=== PATIENT | female | born 1955 | race Caucasian/White ===

== ENCOUNTER 2016-07-27 10:37 | Emergency (ER) | payer BC ==
[2016-07-27] MEDS ORDERED: SODIUM CHLORIDE 0.9% 1,000 ML IV STA (10:45)
[2016-07-27] MEDS ORDERED: diphenhydrAMINE 50 MG/ML 1 ML VIAL IVP STA (10:45)
[2016-07-27] MEDS ORDERED: FAMOTIDINE 20 MG/2 ML VIAL IV STA (10:45)
[2016-07-27] MEDS ORDERED: EPINEPHrine 1 MG/ML 1 ML AMP SQ ONE (10:46)
--- NOTE | 2016-07-27 11:22 | ED ---
General Adult HPI - General Chief complaint: Allergic Reaction Stated complaint: allergic reaction Time Seen by Provider: 07/27/16 10:45 Source: patient, family, RN notes reviewed, old records reviewed Mode of arrival: ambulatory Limitations: no limitations - History of Present Illness Initial comments: Chief complaint and history of present illness a 61-year-old female presented since to the emergency room with significant swelling to her lips and both cheeks. Patient was given a shot of steroid in the office. On around emergency room she was given IV Pepcid and Benadryl. As well as 0.2 epinephrine. - Related Data Previous Rx's Medication Instructions Recorded EPINEPHrine (Auto Inject) [Epipen] 0.3 mg IM ONCE PRN #2 syringe 07/27/16 predniSONE 20 mg PO DAILY #3 tab 07/27/16 Allergies Allergy/AdvReac Type Severity Reaction Status Date / Time ibuprofen [From Advil] Allergy Rash/Hives Verified 07/27/16 11:14 naproxen sodium [From Aleve] Allergy Rash/Hives Verified 07/27/16 11:14 sulfamethoxazole Allergy Rash/Hives Verified 07/27/16 11:14 [From Bactrim] trimethoprim [From Bactrim] Allergy Rash/Hives Verified 07/27/16 11:14 Review of Systems ROS Statement: Those systems with pertinent positive or pertinent negative responses have been documented in the HPI. Review of systems. The patient did receive penicillin today and appears well patient may now the penicillin as an ALLERGY. He also had hives in addition to the significant swelling to the face and lips the tongue was not swollen. She was not having difficulty breathing no wheezing. Vital signs were stable. No other complaints all systems are reviewed. Past medical problems significant for rheumatoid arthritis, heart murmur for which she is scheduled to have an echocardiogram was later on this afternoon. Patient bariatric surgery. ALLERGIES include ibuprofen naproxen sulfa and now penicillin should be on her list. Ex-smoker. Occasional alcohol use ROS Other: All systems not noted in ROS Statement are negative. Past Medical History Past Medical History: Rheumatoid Arthritis (RA), Thyroid Disorder Additional Past Medical History / Comment(s): Heart murmur-patient has been previously worked up for this., neck pain History of Any Multi-Drug Resistant Organisms: None Reported Past Surgical History: Bariatric Surgery, Hysterectomy Additional Past Surgical History / Comment(s): cervical CA Past Psychological History: No Psychological Hx Reported Smoking Status: Former smoker Past Alcohol Use History: Occasional Past Drug Use History: None Reported General Exam - General Exam Comments Initial Comments: General: The patient is awake and alert, presents with significant swelling to her left and right side of her face as well as her lips but not her tongue. No change in her ability to breathe through her nose. Eye: Pupils are equal, round and reactive to light, extra-ocular movements are intact ; there is normal conjunctiva bilaterally. No signs of icterus. Ears, nose, mouth and throat: There are moist mucous membranes and no oral lesions. Significant a swollen cheeks and lips. Starting to come down should not be receiving epinephrine sq, Pepcid and Benadryl IV. Neck: The neck is supple, there is no tenderness , no stridor appreciated. Thyroid not enlarged no anterior cervical lymphadenopathy. Cardiovascular: There is a regular rate and rhythm. Loud systolic murmur heard over both the aorta and mitral valve areas. Respiratory: Lungs are clear to auscultation, respirations are non-labored, breath sounds are equal. No wheezes, stridor, rales, or rhonchi. Gastrointestinal: Soft, non-distended, non-tender abdomen without masses or organomegaly noted. There is no rebound or guarding present. No CVA tenderness. Bowel sounds are unremarkable. Back: There is no tenderness to palpation in the midline. There is no obvious deformity. Patient had hives earlier which is subsiding. Musculoskeletal: Normal ROM, no tenderness, There is no pedal edema. There is no calf tenderness or swelling. Sensation intact. Pulses equal bilaterally 2+. Neurological: No neuro deficits are noted and oriented no focal or lateralizing findings. Skin: His are noted earlier subsiding at this time. Limitations: no limitations Course Vital Signs 07/27/16 07/27/16 10:44 11:28 Temperature 97.1 F L 98.4 F Pulse Rate 82 80 Respiratory 18 18 Rate Blood Pressure 167/97 143/72 O2 Sat by Pulse 98 98 Oximetry Medical Decision Making - Medical Decision Making was resting had to be awakened. Vital signs stable, minimal swelling at this time. No stridor no difficulty breathing. The plan the patient be discharged to the care of her . She'll be placed on prednisone 20 mg daily for the next 2 days, Benadryl 25 mg 4 times daily for the next 2 days and Pepcid 20 mg daily for the next 2 days. Advised to follow-up with the family physician - Lab Data Result diagrams: 07/27/16 11:00 07/27/16 11:33 Lab Results 07/27/16 07/27/16 Range/Units 11:00 11:33 WBC 7.9 (3.8-10.6) k/uL RBC 4.88 (3.80-5.40) m/uL Hgb 14.3 (11.4-16.0) gm/dL Hct 44.2 (34.0-46.0) % MCV 90.7 (80.0-100.0) fL MCH 29.4 (25.0-35.0) pg MCHC 32.4 (31.0-37.0) g/dL RDW 13.2 (11.5-15.5) % Plt Count 300 (150-450) k/uL Neutrophils % 84 % Lymphocytes % 12 % Monocytes % 2 % Eosinophils % 1 % Basophils % 0 % Neutrophils # 6.6 (1.3-7.7) k/uL Lymphocytes # 1.0 (1.0-4.8) k/uL Monocytes # 0.2 (0-1.0) k/uL Eosinophils # 0.1 (0-0.7) k/uL Basophils # 0.0 (0-0.2) k/uL Sodium 143 (137-145) mmol/L Potassium 3.9 (3.5-5.1) mmol/L Chloride 104 (98-107) mmol/L Carbon Dioxide 27 (22-30) mmol/L Anion Gap 12 mmol/L BUN 12 (7-17) mg/dL Creatinine 0.50 L (0.52-1.04) mg/dL Est GFR (MDRD) Af Amer >60 (>60 ml/min/1.73 sqM) Est GFR (MDRD) Non-Af >60 (>60 ml/min/1.73 sqM) Glucose 112 H (74-99) mg/dL Calcium 9.7 (8.4-10.2) mg/dL Disposition Clinical Impression: Adverse reaction to drug Disposition: HOME SELF-CARE Condition: Fair Instructions: Anaphylaxis (ED) Additional Instructions: Stop the medication that caused the problem. Increase fluid intake. Use EpiPen as directed. Take Benadryl 25 mg 4 times daily for the next 2 days, Pepcid 20 mg daily for 2 days, and prednisone 20 mg daily for the next 2 days. Follow-up with your family physician. Prescriptions: EPINEPHrine (Auto Inject) [Epipen] 0.3 mg IM ONCE PRN #2 syringe PRN Reason: Anaphylaxis predniSONE 20 mg PO DAILY #3 tab Referrals: Berna Jalloh MD [Primary Care Provider] - 1-2 days Time of Disposition: 13:28
[2016-07-27 11:42] LABS: Basophils % (A) 0 %; CH 29.6; CHCM 32.8; Eosinophils # (A) 0.1 k/uL (0-0.7); Eosinophils % (A) 1 %; HCT 44.2 % (34.0-46.0); HDW 2.24; HGB 14.3 gm/dL (11.4-16.0); Luc # (Auto) 0.05; Luc % (Auto) 1; Lymphocytes % (A) 12 %; MCH 29.4 pg (25.0-35.0); MCHC 32.4 g/dL (31.0-37.0); MCV 90.7 fL (80.0-100.0); Mean Platelet Volume 8.7; Monocytes # (A) 0.2 k/uL (0-1.0); Monocytes % (A) 2 %; Neutrophils # (A) 6.6 k/uL (1.3-7.7); Neutrophils % (A) 84 %; RBC 4.88 m/uL (3.80-5.40); RDW 13.2 % (11.5-15.5); WBC 7.9 k/uL (3.8-10.6); WBC (Perox) 7.53
[2016-07-27 12:22] LABS: Blood Urea Nitrogen 12 mg/dL (7-17); Calcium 9.7 mg/dL (8.4-10.2); Carbon Dioxide 27 mmol/L (22-30); Glucose 112 mg/dL (74-99); Non-African American GFR(MDRD) >60 (>60 ml/min/1.73 sqM); Potassium 3.9 mmol/L (3.5-5.1); Sodium 143 mmol/L (137-145)
[2016-07-27 12:34] LABS: Anion Gap 12 mmol/L; Chloride 104 mmol/L (98-107)
[2016-07-27 13:48] VITALS: BP 110/62; PULSE 91; RESP 20; TEMP 98.3
== END 2016-07-27 13:49 | disposition home or self-care (01) ==
LOC: EC 10:37
DX: R22.0 Localized swelling, mass and lump, head (principal); K13.0 Diseases of lips; T38.0X5A Adverse effect of glucocorticoids and synthetic analogues, initial encounter; Z87.891 Personal history of nicotine dependence; Z88.6 Allergy status to analgesic agent; Z88.2 Allergy status to sulfonamides; Z85.41 Personal history of malignant neoplasm of cervix uteri
CPT/HCPCS: 99284; 96374; 96375; 96372; 36415; 80048; 85025; J0171; J1200; 93306

== ENCOUNTER → 2016-07-27 | Outpatient (CLI) | payer BC ==
--- NOTE | 2016-07-28 10:20 | ECHOF ---
Referral Reason:I35.0 aortic stensois MEASUREMENTS -------- HEIGHT: 160.0 cm WEIGHT: 95.3 kg BP: 142/85 IVSd: 1.2 cm (0.6 - 1.1) LVIDd: 4.3 cm (3.9 - 5.3) LVPWd: 1.3 cm (0.6 - 1.1) IVSs: 1.8 cm LVIDs: 2.6 cm LVPWs: 2.0 cm LAESV Index (A-L): 23.24 ml/m Ao Diam: 2.9 cm (2.0 - 3.7) AV Cusp: 1.6 cm (1.5 - 2.6) LA Diam: 3.8 cm (2.7 - 3.8) MV E Aubrey: 0.79 m/s MV DecT: 265 ms MV A Aubrey: 1.02 m/s MV E/A Ratio: 0.78 AV maxP.45 mmHg AV meanP.07 mmHg RAP: 5.00 mmHg RVSP: 23.79 mmHg FINDINGS -------- Sinus rhythm. This was a technically adequate study. There is mild concentric left ventricular hypertrophy. Left ventricular systolic function is hyperdynamic with an estimated EF of >70%. The right ventricle is normal in size and function. Normal LA size by volume 22+/-6 ml/m2. The right atrium is normal in size. There is no evidence of aortic regurgitation. There is no evidence of aortic stenosis. AOV is possible Bicuspid. The mitral valve leaflets are mildly thickened. Mild mitral annular calcification present. There is trace mitral regurgitation. Trace tricuspid regurgitation present. There is no evidence of pulmonary hypertension. The right ventricular systolic pressure, as measured by Doppler, is 23.79mmHg. The pulmonic valve was not well visualized. The aortic root size is normal. Normal inferior vena cava with normal inspiratory collapse consistent with estimated right atrial pressure of 5 mmHg. The pericardium is normal. There is no pericardial effusion. CONCLUSIONS -------- 1. Sinus rhythm. 2. There is trace mitral regurgitation. 3. Trace tricuspid regurgitation present. 4. There is no evidence of pulmonary hypertension. 5. The right ventricular systolic pressure, as measured by Doppler, is 23.79mmHg. 6. The pulmonic valve was not well visualized. 7. The aortic root size is normal. 8. There is no pericardial effusion. 9. There is mild concentric left ventricular hypertrophy. 10. Left ventricular systolic function is hyperdynamic with an estimated EF of >70%. 11. Normal LA size by volume 22+/-6 ml/m2. 12. There is no evidence of aortic regurgitation. 13. There is no evidence of aortic stenosis. 14. AOV is possible Bicuspid. 15. The mitral valve leaflets are mildly thickened. 16. Mild mitral annular calcification present. [employer] DRIVER: Kwaku Marcano RDCS
== END | disposition home or self-care (01) ==
LOC: RADECHMAIN 13:52
PROVIDERS: ATTEND Family Medicine
DX: I08.1 Rheumatic disorders of both mitral and tricuspid valves (principal)
CPT/HCPCS: 93306

== ENCOUNTER 2016-08-04 05:49 | Emergency (ER) | payer BC ==
[2016-08-04 05:55] VITALS: RESP 18
[2016-08-04] MEDS ORDERED: methylPREDNISolone SOD SUCCI 125 MG/2 ML VIAL IV STA (06:28)
[2016-08-04] MEDS ORDERED: FAMOTIDINE 20 MG/2 ML VIAL IV STA (06:28)
[2016-08-04 06:45] LABS: Basophils % (A) 1 %; CH 29.4; CHCM 31.5; Eosinophils # (A) 0.4 k/uL (0-0.7); Eosinophils % (A) 6 %; HCT 38.9 % (34.0-46.0); HDW 2.15; HGB 12.5 gm/dL (11.4-16.0); Luc # (Auto) 0.09; Luc % (Auto) 2; Lymphocytes # (A) 1.6 k/uL (1.0-4.8); Lymphocytes % (A) 27 %; MCV 93.7 fL (80.0-100.0); Mean Platelet Volume 7.4; Monocytes # (A) 0.3 k/uL (0-1.0); Monocytes % (A) 5 %; Neutrophils # (A) 3.5 k/uL (1.3-7.7); Neutrophils % (A) 59 %; RBC 4.16 m/uL (3.80-5.40); RDW 13.4 % (11.5-15.5); WBC 5.8 k/uL (3.8-10.6); WBC (Perox) 5.91
[2016-08-04 06:55] LABS: Anion Gap 7 mmol/L; Blood Urea Nitrogen 19 mg/dL (7-17); Calcium 9.1 mg/dL (8.4-10.2); Carbon Dioxide 28 mmol/L (22-30); Chloride 108 mmol/L (98-107); Glucose 81 mg/dL (74-99); Non-African American GFR(MDRD) >60 (>60 ml/min/1.73 sqM); Potassium 4.1 mmol/L (3.5-5.1); Sodium 143 mmol/L (137-145)
--- NOTE | 2016-08-04 07:10 | ED ---
ENT HPI - General Chief complaint: ENT Stated complaint: Swollen tounge Time Seen by Provider: 08/04/16 05:58 Source: patient Mode of arrival: ambulatory Limitations: no limitations - History of Present Illness Initial comments: This patient is a 61-year-old woman who was sleeping this morning, when she was awakened noting that her tongue felt swollen. She states it feels more swollen on the left side than the right. She has no previous history of this. It seems to have developed around 5 AM. She states that last night before going to bed she did have some facial itching but no hives. Patient is able swallow own secretions. She is breathing with no difficulty. She does report taking Benadryl at home but states she did not want to wait and see if there was improvement or worsening, as she was concerned about not being able to breathe if it worsened. MD complaint: other (Tongue swelling) Onset/Timin -: hour(s) Location: tongue Severity: moderate Quality: dull Consistency: constant Improves with: none Worsens with: none - Related Data Previous Rx's Medication Instructions Recorded EPINEPHrine (Auto Inject) [Epipen] 0.3 mg IM ONCE PRN #2 syringe 07/27/16 Famotidine [Pepcid] 20 mg PO DAILY #14 tablet 08/04/16 predniSONE 60 mg PO DAILY #30 tab 08/04/16 Allergies Allergy/AdvReac Type Severity Reaction Status Date / Time ibuprofen [From Advil] Allergy Rash/Hives Verified 08/04/16 05:55 naproxen sodium [From Aleve] Allergy Rash/Hives Verified 08/04/16 05:55 sulfamethoxazole Allergy Rash/Hives Verified 08/04/16 05:55 [From Bactrim] trimethoprim [From Bactrim] Allergy Rash/Hives Verified 08/04/16 05:55 Review of Systems ROS Statement: Those systems with pertinent positive or pertinent negative responses have been documented in the HPI. ROS Other: All systems not noted in ROS Statement are negative. Constitutional: Denies: fever, chills Eyes: Denies: vision change ENT: Reports: as per HPI. Denies: throat pain, dental pain, congestion Respiratory: Denies: cough, dyspnea, wheezes, hemoptysis, stridor Cardiovascular: Denies: chest pain Gastrointestinal: Denies: abdominal pain, vomiting, diarrhea Musculoskeletal: Denies: back pain Skin: Denies: rash Neurological: Denies: headache, weakness, numbness Past Medical History Past Medical History: Rheumatoid Arthritis (RA), Thyroid Disorder Additional Past Medical History / Comment(s): Heart murmur-patient has been previously worked up for this., neck pain History of Any Multi-Drug Resistant Organisms: None Reported Past Surgical History: Bariatric Surgery, Hysterectomy Additional Past Surgical History / Comment(s): cervical CA Past Psychological History: No Psychological Hx Reported Smoking Status: Former smoker Past Alcohol Use History: Occasional Past Drug Use History: None Reported General Exam Limitations: no limitations General appearance: alert, in no apparent distress Head exam: Present: atraumatic, normocephalic Eye exam: Present: normal appearance. Absent: scleral icterus, conjunctival injection ENT exam: Present: mucous membranes moist, other (There is moderate swelling of the tongue slightly greater on the left than right.) Neck exam: Present: full ROM. Absent: tenderness, meningismus, lymphadenopathy Respiratory exam: Present: normal lung sounds bilaterally. Absent: respiratory distress, wheezes, rales, rhonchi, stridor Cardiovascular Exam: Present: regular rate, normal rhythm, normal heart sounds. Absent: systolic murmur, diastolic murmur, rubs, gallop GI/Abdominal exam: Present: soft. Absent: distended, tenderness, guarding, rebound, mass Extremities exam: Present: normal inspection, normal capillary refill. Absent: pedal edema, calf tenderness Back exam: Present: normal inspection. Absent: CVA tenderness (R), CVA tenderness (L) Neurological exam: Present: alert Skin exam: Present: warm, dry, intact, normal color. Absent: rash Course Vital Signs 08/04/16 08/04/16 05:53 06:49 Temperature 96.0 F L Pulse Rate 65 65 Respiratory 18 18 Rate Blood Pressure 193/96 140/83 O2 Sat by Pulse 98 98 Oximetry Medical Decision Making - Medical Decision Making The patient was having some improvement after coming to the hospital, and before I saw her that she believed was related to the Benadryl. We did add same Medrol and Pepcid. - Lab Data Result diagrams: 08/04/16 06:20 08/04/16 06:20 Lab Results 08/04/16 08/04/16 Range/Units 06:20 06:20 WBC 5.8 (3.8-10.6) k/uL RBC 4.16 (3.80-5.40) m/uL Hgb 12.5 (11.4-16.0) gm/dL Hct 38.9 (34.0-46.0) % MCV 93.7 (80.0-100.0) fL MCH 30.0 (25.0-35.0) pg MCHC 32.0 (31.0-37.0) g/dL RDW 13.4 (11.5-15.5) % Plt Count 284 (150-450) k/uL Neutrophils % 59 % Lymphocytes % 27 % Monocytes % 5 % Eosinophils % 6 % Basophils % 1 % Neutrophils # 3.5 (1.3-7.7) k/uL Lymphocytes # 1.6 (1.0-4.8) k/uL Monocytes # 0.3 (0-1.0) k/uL Eosinophils # 0.4 (0-0.7) k/uL Basophils # 0.0 (0-0.2) k/uL Sodium 143 (137-145) mmol/L Potassium 4.1 (3.5-5.1) mmol/L Chloride 108 H (98-107) mmol/L Carbon Dioxide 28 (22-30) mmol/L Anion Gap 7 mmol/L BUN 19 H (7-17) mg/dL Creatinine 0.57 (0.52-1.04) mg/dL Est GFR (MDRD) Af Amer >60 (>60 ml/min/1.73 sqM) Est GFR (MDRD) Non-Af >60 (>60 ml/min/1.73 sqM) Glucose 81 (74-99) mg/dL Calcium 9.1 (8.4-10.2) mg/dL Disposition Clinical Impression: Angioedema Disposition: HOME SELF-CARE Condition: Good Instructions: Angioedema (ED) Prescriptions: Famotidine [Pepcid] 20 mg PO DAILY #14 tablet predniSONE 60 mg PO DAILY #30 tab Referrals: Berna Jalloh MD [Primary Care Provider] - 1-2 days Sean Watson MD [STAFF PHYSICIAN] - 1-2 days
[2016-08-04 07:52] VITALS: BP 153/70; PULSE 73; TEMP 97.5
== END 2016-08-04 07:52 | disposition home or self-care (01) ==
LOC: EC 05:49
DX: T78.3XXA Angioneurotic edema, initial encounter (principal); M06.9 Rheumatoid arthritis, unspecified; Z87.891 Personal history of nicotine dependence; Z85.41 Personal history of malignant neoplasm of cervix uteri; Z88.6 Allergy status to analgesic agent; Z88.2 Allergy status to sulfonamides; Z79.52 Long term (current) use of systemic steroids; Z79.899 Other long term (current) drug therapy
CPT/HCPCS: 99283; 96374; 96375; 36415; 80048; 85025; J2930

== ENCOUNTER → 2016-08-25 | Outpatient (CLI) | payer SELFPAY | END | disposition home or self-care (01) | LOC: LABWHC1 08:52 | PROVIDERS: ATTEND Otolaryngology | DX: J30.89 Other allergic rhinitis (principal) | CPT/HCPCS: 36415 ==

== ENCOUNTER 2017-04-16 03:05 | Emergency (ER) | payer BC ==
[2017-04-16] MEDS ORDERED: FAMOTIDINE 20 MG/2 ML VIAL IV STA (03:17)
[2017-04-16] MEDS ORDERED: methylPREDNISolone SOD SUCCI 125 MG/2 ML VIAL IV STA (03:17)
[2017-04-16] MEDS ORDERED: SODIUM CHLORIDE 0.9% 500 ML IV STA (03:17)
[2017-04-16] MEDS ORDERED: EPINEPHrine 1 MG/ML 1 ML AMP SQ STA (03:17)
[2017-04-16] MEDS ORDERED: diphenhydrAMINE 50 MG CAP PO STA (03:17)
--- NOTE | 2017-04-16 03:29 | ED ---
General Adult HPI - General Chief complaint: Allergic Reaction Stated complaint: Swollen Tongue Time Seen by Provider: 04/16/17 03:17 Source: patient, family, RN notes reviewed, old records reviewed Mode of arrival: ambulatory Limitations: no limitations - History of Present Illness Initial comments: This is a 62-year-old female to ER for evaluation. Patient presents today for evaluation regards to which reaction, [place]. Patient has no medications takes no medications did eat any rash outside. No shortness of breath no wheezing no rash. Patient denies prior symptoms are similar history - Related Data Previous Rx's Medication Instructions Recorded EPINEPHrine (Auto Inject) [Epipen] 0.3 mg IM ONCE PRN #2 syringe 07/27/16 Famotidine [Pepcid] 20 mg PO DAILY #14 tablet 08/04/16 predniSONE 60 mg PO DAILY #30 tab 08/04/16 Allergies Allergy/AdvReac Type Severity Reaction Status Date / Time ibuprofen [From Advil] Allergy Rash/Hives Verified 04/16/17 03:13 naproxen sodium [From Aleve] Allergy Rash/Hives Verified 04/16/17 03:13 sulfamethoxazole Allergy Rash/Hives Verified 04/16/17 03:13 [From Bactrim] trimethoprim [From Bactrim] Allergy Rash/Hives Verified 04/16/17 03:13 Review of Systems ROS Statement: Those systems with pertinent positive or pertinent negative responses have been documented in the HPI. ROS Other: All systems not noted in ROS Statement are negative. Past Medical History Past Medical History: Rheumatoid Arthritis (RA), Thyroid Disorder Additional Past Medical History / Comment(s): Heart murmur-patient has been previously worked up for this., neck pain, History of Any Multi-Drug Resistant Organisms: None Reported Past Surgical History: Bariatric Surgery, Hysterectomy Additional Past Surgical History / Comment(s): cervical CA, Past Psychological History: No Psychological Hx Reported Smoking Status: Former smoker Past Alcohol Use History: Occasional Past Drug Use History: None Reported General Exam Limitations: no limitations General appearance: alert, in no apparent distress Head exam: Present: atraumatic, normocephalic, normal inspection Eye exam: Present: normal appearance, PERRL, EOMI. Absent: scleral icterus, conjunctival injection, periorbital swelling ENT exam: Present: normal exam, mucous membranes moist, other (Tongue is swollen , edematous) Neck exam: Present: normal inspection. Absent: tenderness, meningismus, lymphadenopathy Respiratory exam: Present: normal lung sounds bilaterally. Absent: respiratory distress, wheezes, rales, rhonchi, stridor Cardiovascular Exam: Present: regular rate, normal rhythm, normal heart sounds. Absent: systolic murmur, diastolic murmur, rubs, gallop, clicks GI/Abdominal exam: Present: soft, normal bowel sounds. Absent: distended, tenderness, guarding, rebound, rigid Extremities exam: Present: normal inspection, full ROM, normal capillary refill. Absent: tenderness, pedal edema, joint swelling, calf tenderness Back exam: Present: normal inspection Neurological exam: Present: alert, oriented X3, CN II-XII intact Psychiatric exam: Present: normal affect, normal mood Skin exam: Present: warm, dry, intact, normal color. Absent: rash Course Vital Signs 04/16/17 03:08 Temperature 98.1 F Pulse Rate 72 Respiratory 18 Rate Blood Pressure 200/91 O2 Sat by Pulse 97 Oximetry - Reevaluation(s) Reevaluation #1: 04/16/17 03:28 No stridor, patient states symptoms improving since Benadryl at home Reevaluation #2: 04/16/17 04:24 This patient at this point is showing significant improvement in swelling. Patient states that she feels better, is having continued improvement. Lengthy conversations had with patient regarding prior ALLERGIC reactions, patient is an has taken epinephrine pen in the past secondary to ALLERGIC reaction. Patient had an unknown cause to go through ALLERGY testing at the time per family and patient as she cannot talk because her tongue is much less swollen. Patient would like to continue outpatient treatment. She says again she does have (at home. Will return to ER if symptoms worsen. to begin sticking increase in swelling. Medical Decision Making - Medical Decision Making 62 female the ER for evaluation of ALLERGIC reaction. Patient has significant swelling of tongue, no difficulty breathing throughout ER stay. Swelling continued to improve, patient without difficulty swallowing, continues to have decreased size of tongue. Patient encouraged to continue taking medication, take epinephrine pen as needed. Family spoken with, aware, will be with patient at bedside. - Lab Data Result diagrams: 04/16/17 03:17 04/16/17 03:17 Lab Results 04/16/17 04/16/17 Range/Units 03:17 03:17 WBC 5.8 (3.8-10.6) k/uL RBC 4.88 (3.80-5.40) m/uL Hgb 14.0 (11.4-16.0) gm/dL Hct 46.0 (34.0-46.0) % MCV 94.3 (80.0-100.0) fL MCH 28.6 (25.0-35.0) pg MCHC 30.4 L (31.0-37.0) g/dL RDW 13.1 (11.5-15.5) % Plt Count 270 (150-450) k/uL Neutrophils % 53 % Lymphocytes % 33 % Monocytes % 5 % Eosinophils % 7 % Basophils % 1 % Neutrophils # 3.1 (1.3-7.7) k/uL Lymphocytes # 1.9 (1.0-4.8) k/uL Monocytes # 0.3 (0-1.0) k/uL Eosinophils # 0.4 (0-0.7) k/uL Basophils # 0.0 (0-0.2) k/uL Sodium 141 (137-145) mmol/L Potassium 4.7 (3.5-5.1) mmol/L Chloride 104 (98-107) mmol/L Carbon Dioxide 27 (22-30) mmol/L Anion Gap 10 mmol/L BUN 19 H (7-17) mg/dL Creatinine 0.60 (0.52-1.04) mg/dL Est GFR (MDRD) Af Amer >60 (>60 ml/min/1.73 sqM) Est GFR (MDRD) Non-Af >60 (>60 ml/min/1.73 sqM) Glucose 83 (74-99) mg/dL Calcium 9.6 (8.4-10.2) mg/dL Disposition Clinical Impression: Angioedema, Allergic reaction Disposition: HOME SELF-CARE Condition: Good Instructions: Angioedema (ED) Referrals: Berna Jalloh MD [Primary Care Provider] - 1-2 days
[2017-04-16 03:40] LABS: Basophils % (A) 1 %; Eosinophils # (A) 0.4 k/uL (0-0.7); Eosinophils % (A) 7 %; Lymphocytes # (A) 1.9 k/uL (1.0-4.8); Lymphocytes % (A) 33 %; MCH 28.6 pg (25.0-35.0); MCHC 30.4 g/dL (31.0-37.0); MCV 94.3 fL (80.0-100.0); Mean Platelet Volume 7.9; Monocytes # (A) 0.3 k/uL (0-1.0); Monocytes % (A) 5 %; Neutrophils # (A) 3.1 k/uL (1.3-7.7); Neutrophils % (A) 53 %; Platelet Count 270 k/uL (150-450); RBC 4.88 m/uL (3.80-5.40); RDW 13.1 % (11.5-15.5); WBC 5.8 k/uL (3.8-10.6)
[2017-04-16 03:53] LABS: Anion Gap 10 mmol/L; Blood Urea Nitrogen 19 mg/dL (7-17); Calcium 9.6 mg/dL (8.4-10.2); Carbon Dioxide 27 mmol/L (22-30); Chloride 104 mmol/L (98-107); Glucose 83 mg/dL (74-99); Potassium 4.7 mmol/L (3.5-5.1); Sodium 141 mmol/L (137-145)
[2017-04-16] MEDS ORDERED: hydrOXYzine HCL 25 MG TAB PO STA (04:26)
[2017-04-16] MEDS ORDERED: predniSONE 20 MG TAB PO STA (04:26)
[2017-04-16] MEDS ORDERED: FAMOTIDINE 20 MG TAB PO STA (04:26)
[2017-04-16 05:11] VITALS: BP 156/85; PULSE 71; RESP 20; TEMP 97.8
== END 2017-04-16 04:55 | disposition home or self-care (01) ==
LOC: EC 03:05
DX: T78.3XXA Angioneurotic edema, initial encounter (principal); Z88.6 Allergy status to analgesic agent; Z88.2 Allergy status to sulfonamides; Z85.41 Personal history of malignant neoplasm of cervix uteri; Z87.891 Personal history of nicotine dependence
CPT/HCPCS: 36415; 80048; 85025; 99285; 96372; 96374; 96375; 96361; J0171; J2930; J7512

== ENCOUNTER → 2017-05-25 | Outpatient (CLI) | payer BC ==
--- NOTE | 2017-05-27 10:01 | MM ---
Reason for exam: screening (asymptomatic). Last mammogram was performed 2 years and 8 months ago. History: Patient is postmenopausal, has history of endometrial cancer at age 33, and had first child at age 34. Physical Findings: A clinical breast exam by your physician is recommended on an annual basis and results should be correlated with mammographic findings. MG Screening Mammo w CAD Bilateral CC and MLO view(s) were taken. XCCL view(s) were taken of the left breast. Prior study comparison: September 18, 2014, bilateral MG screening mammo w CAD. There are scattered fibroglandular densities. There is chronic nodularity in the left breast laterally. No significant changes when compared with prior studies. ASSESSMENT: Negative, BI-RAD 1 RECOMMENDATION: Routine screening mammogram of both breasts in 1 year.
== END | disposition home or self-care (01) ==
LOC: RADMAMWWP 13:35
PROVIDERS: ATTEND Family Medicine
DX: Z12.31 Encounter for screening mammogram for malignant neoplasm of breast (principal)
CPT/HCPCS: 77067

== ENCOUNTER 2017-06-30 16:46 | Emergency (ER) | payer BC ==
[2017-06-30 16:59] VITALS: TEMP 98.1
[2017-06-30] MEDS ORDERED: methylPREDNISolone SOD SUCCI 125 MG/2 ML VIAL IV STA (17:21)
[2017-06-30] MEDS ORDERED: FAMOTIDINE 20 MG/2 ML VIAL IV STA (17:22)
[2017-06-30] MEDS ORDERED: EPINEPHrine 1 MG/ML 1 ML AMP SQ ONE (17:30)
--- NOTE | 2017-06-30 17:38 | ED ---
General Adult HPI - General Chief complaint: Allergic Reaction Stated complaint: poss allergic reaction Time Seen by Provider: 06/30/17 17:18 Source: patient, RN notes reviewed Mode of arrival: ambulatory Limitations: no limitations - History of Present Illness Initial comments: 62-year-old female presents to the emergency department for a chief complaint of ALLERGIC reaction 2 hours. Patient was in the garage and thinks she had an ALLERGIC reaction to the mold. Patient has a history of ALLERGIC reactions. Patient states it is difficult to swallow and she has mild swelling on the right side of the face. Patient had 50 mg of Benadryl at home. Patient denies any difficulty breathing or shortness of breath. Patient denies any swelling in the lips. Patient states she is developing hives. Patient has no other complaints at this time including shortness of breath, chest pain, abdominal pain, nausea or vomiting, headache, or visual changes. - Related Data Previous Rx's Medication Instructions Recorded EPINEPHrine (Auto Inject) [Epipen] 0.3 mg IM ONCE PRN #2 syringe 07/27/16 Famotidine [Pepcid] 20 mg PO DAILY #14 tablet 08/04/16 predniSONE 60 mg PO DAILY #30 tab 08/04/16 Famotidine [Pepcid] 40 mg PO BID #28 tablet 04/16/17 hydrOXYzine HCL [Atarax] 25 mg PO TID PRN #15 tab 04/16/17 predniSONE 50 mg PO DAILY #5 tab 04/16/17 predniSONE 50 mg PO DAILY #5 tablet 06/30/17 Allergies Allergy/AdvReac Type Severity Reaction Status Date / Time ibuprofen [From Advil] Allergy Rash/Hives Verified 06/30/17 16:59 naproxen sodium [From Aleve] Allergy Rash/Hives Verified 06/30/17 16:59 sulfamethoxazole Allergy Rash/Hives Verified 06/30/17 16:59 [From Bactrim] trimethoprim [From Bactrim] Allergy Rash/Hives Verified 06/30/17 16:59 Review of Systems ROS Statement: Those systems with pertinent positive or pertinent negative responses have been documented in the HPI. ROS Other: All systems not noted in ROS Statement are negative. Past Medical History Past Medical History: Rheumatoid Arthritis (RA), Thyroid Disorder Additional Past Medical History / Comment(s): Heart murmur-patient has been previously worked up for this., neck pain, History of Any Multi-Drug Resistant Organisms: None Reported Past Surgical History: Bariatric Surgery, Hysterectomy Additional Past Surgical History / Comment(s): cervical CA, Past Psychological History: No Psychological Hx Reported Smoking Status: Former smoker Past Alcohol Use History: Occasional Past Drug Use History: None Reported General Exam Limitations: no limitations Head exam: Present: atraumatic, normocephalic, normal inspection Eye exam: Present: normal appearance, PERRL, EOMI. Absent: scleral icterus, conjunctival injection, periorbital swelling ENT exam: Present: normal exam, normal oropharynx (No swelling noted in the oropharynx), mucous membranes moist, TM's normal bilaterally, other (Mild swelling of the tongue noted) Neck exam: Present: normal inspection, full ROM. Absent: tenderness, meningismus, lymphadenopathy Respiratory exam: Present: normal lung sounds bilaterally. Absent: respiratory distress, wheezes, rales, rhonchi, stridor Cardiovascular Exam: Present: regular rate, normal rhythm, normal heart sounds. Absent: systolic murmur, diastolic murmur, rubs, gallop, clicks Skin exam: Present: rash (There is an erythematous plaquelike hive over the left upper arm) Course Vital Signs 06/30/17 06/30/17 16:57 17:39 Temperature 98.1 F Pulse Rate 66 Respiratory 18 20 Rate Blood Pressure 183/100 O2 Sat by Pulse 100 Oximetry Medical Decision Making - Medical Decision Making 62-year-old female presents to the emergency department for chief complaint of ALLERGIC reaction 2 hours. Patient has had similar reactions in the past for which she has received epinephrine. Patient complained of difficulty swallowing and mild tongue swelling. No shortness of breath or difficulty breathing. Patient took 50 mg of Benadryl at home. On exam patient had some right facial swelling as well as slight mild tongue swelling. Lungs were clear and patient was in no distress. Patient was given Solu-Medrol Pepcid and epinephrine. On reexamination about an hour later patient is feeling much better. Patient feels ready to go home. She is able to talk more clearly and the swelling in her tongue has greatly decreased. Hive much better as well. Patient will return to the emergency Department if she develops any worsening symptoms or difficulty breathing. She will take her Benadryl and Pepcid that she has at home as well as the steroid given to her. She will follow up with primary care in 1-2 days. Disposition Clinical Impression: Allergic reaction Disposition: HOME SELF-CARE Condition: Good Instructions: Urticaria (ED) Additional Instructions: Please continue to take Benadryl, Pepcid, and prednisone as directed. Please monitor for any difficulty breathing or shortness of breath and return to the emergency department. Return if any symptoms worsen. Follow-up with primary care in 1-2 days. Prescriptions: predniSONE 50 mg PO DAILY #5 tablet Is patient prescribed a controlled substance at d/c from ED?: No Referrals: Berna Jalloh MD [Primary Care Provider] - 1-2 days Time of Disposition: 18:12
[2017-06-30 18:51] VITALS: BP 137/84; PULSE 72; RESP 18
== END 2017-06-30 18:50 | disposition home or self-care (01) ==
LOC: EC 16:46
DX: T78.40XA Allergy, unspecified, initial encounter (principal); Z85.41 Personal history of malignant neoplasm of cervix uteri; Z87.891 Personal history of nicotine dependence; Z88.2 Allergy status to sulfonamides; Z88.8 Allergy status to other drugs, medicaments and biological substances
CPT/HCPCS: 99283; 96374; 96375; 96372; J0171; J2930

== ENCOUNTER → 2018-09-20 | Outpatient (CLI) | payer BC ==
[2018-09-20 10:29] VITALS: BP 109/72; PULSE 76; RESP 16; TEMP 98.1; BMI 37.2
--- NOTE | 2018-09-20 11:04 | P.GSHP ---
History of Present Illness H&P Date: 09/20/18 Chief Complaint: right breast damp The patient is a 63 year old white female with a complaint of noticing that her right breast felt damp, and then noted some discharge in her bra. She underwent a mammogram which revealed some right breast suspicious asymmetry in the posterior depth which resolved and additional spot compressions and ultrasound was done to reference the nipple discharge. On ultrasound on the right she was noted to have a dilated duct with debris. No dilated ducts were noted on the left. The patient states she is uncertain as to the color of the discharge. In her bra leaves a dark rebekah. The patient has no history of infection or, to her breast. She has no history of any lumps or masses in her breasts. The patient drinks about 32 oz of ice tea/day. She also drinks three cups of coffee/day. The patient does not smoke and is not exposed to secondhand smoke. The patient is chocolate rarely. The patient does not take any hormones Family history: 1. paternal aunt: breast cancer 2. sister: Non-Hodgkin's lymphoma 3.patient: cervical cancer Hormonal history: Menarche:16 , 1 Ab, breast fed: no, first born at 34 Menopause: Hysterectomy in her 40s, did not take her ovaries done for cervical cancer control pills: none hormones: none Past surgical history: 1. Gastric sleeve 2. hysterectomy 3. chest cyst 4. left leg Medical history: 1.kidney stones 2. Rheumatoid arthritis Social History: smoke: none alcohol: occasional drugs: none - Constitutional Constitutional: Reports sweats, Denies chills, Denies fever - EENT Eyes: denies blurred vision, denies pain Ears: deny: decreased hearing, tinnitus Ears, nose, mouth and throat: Denies headache, Denies sore throat - Breasts Breasts: bilateral: as per HPI - Cardiovascular Cardiovascular: Denies chest pain, Denies shortness of breath - Respiratory Respiratory: Denies cough, Denies 7 - Gastrointestinal Gastrointestinal: Denies abdominal pain, Denies diarrhea, Denies nausea, Denies vomiting - Genitourinary (Female) Genitourinary: Reports kidney stones, Denies dysuria, Denies hematuria - Menstruation Menstruation: Reports post hysterectomy - Musculoskeletal Comment: Rheumatoid and osteoarthritis - Integumentary Comment: 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 rash for several moths Integumentary: Reports pruritus, Reports rash - Neurological Neurological: Denies numbness, Denies weakness - Psychiatric Psychiatric: Denies anxiety, Denies depression - Endocrine Endocrine: Denies fatigue, Denies weight change - Hematologic/Lymphatic Comment: none - Allergic/Immunologic Allergic/Immunologic: Reports as per HPI Past Medical History Past Medical History: Rheumatoid Arthritis (RA), Thyroid Disorder Additional Past Medical History / Comment(s): Heart murmur-patient has been previously worked up for this., neck pain, History of Any Multi-Drug Resistant Organisms: None Reported Past Surgical History: Bariatric Surgery, Hysterectomy Additional Past Surgical History / Comment(s): cervical CA, Past Psychological History: No Psychological Hx Reported Smoking Status: Former smoker Past Alcohol Use History: Occasional Past Drug Use History: None Reported Medications and Allergies Home Medications Medication Instructions Recorded Confirmed Type EPINEPHrine (Auto Inject) [Epipen] 0.3 mg IM ONCE PRN #2 syringe 07/27/16 09/20/18 Rx hydrOXYzine HCL [Atarax] 25 mg PO TID PRN #15 tab 04/16/17 09/20/18 Rx Cetirizine HCl [Zyrtec] 30 mg PO HS 09/20/18 09/20/18 History Cholecalciferol [Vitamin D3 (25 2,000 unit PO DAILY 09/20/18 09/20/18 History Mcg = 1000 Iu)] Fexofenadine/Pseudoephedrine 1 each PO BID 09/20/18 09/20/18 History [Ange-D 12 Hour Tablet] Allergies Allergy/AdvReac Type Severity Reaction Status Date / Time ibuprofen [From Advil] Allergy Rash/Hives Verified 09/20/18 10:29 naproxen sodium [From Aleve] Allergy Rash/Hives Verified 09/20/18 10:29 sulfamethoxazole Allergy Rash/Hives Verified 09/20/18 10:29 [From Bactrim] trimethoprim [From Bactrim] Allergy Rash/Hives Verified 09/20/18 10:29 Surgical - Exam Vital Signs Temp Pulse Resp BP Pulse Ox 98.1 F 76 16 109/72 100 09/20/18 10:26 09/20/18 10:26 09/20/18 10:26 09/20/18 10:26 09/20/18 10:26 BMI 37.2 - General obese - Eyes normal ocular movement - ENT no hearing loss, no congestion - Neck no masses, trachea midline - Respiratory normal respiratory effort, clear to auscultation - Cardiovascular Rhythm: regular Heart Sounds: normal: S1, S2 - Abdomen Abdomen: soft, non tender, no guarding, no rigid, no rebound - Integumentary rash on palms of hands - Neurologic no disoriented, no combative - Musculoskeletal normal gait - Psychiatric oriented to time, oriented to person, oriented to place, speech is normal, memory intact breast exam: Bra 40C Weight breasts: Multiple positional exam fibrocystic changes, there is cleared nipple discharge at the 12 o'clock position Axilla: Shotty adenopathy Left breast: Multiple positional exam no dominant masses or notches of concern, fibrocystic changes Left axilla: No adenopathy of concern Guaiac test of the nipple discharge on the right was performed which is guaiac positive Results Mammogram and ultrasound results reviewed Assessment and Plan Assessment: Impression: 1. Abnormal mammogram right breast 2. Abnormal ultrasound right breast 2. Nipple discharge right breast guaiac-positive 4. Family history of breast cancer 5. Personal history of cervical cancer 6. History of rheumatoid and osteoarthritis 7. obesity Plan: 1. Duct exploration right breast with ultrasound-guided localization 2. Medical management of medical conditions CC: Dr. Jalloh
== END | disposition home or self-care (01) ==
LOC: WWCWWP 10:20
PROVIDERS: ATTEND Surgery
DX: Z53.9 Procedure and treatment not carried out, unspecified reason (principal)

== ENCOUNTER → 2018-09-20 | Outpatient (CLI) | payer BC ==
--- NOTE | 2018-09-20 10:01 | MM ---
Reason for exam: clinical finding. Last mammogram was performed 1 year and 4 months ago. History: Patient is postmenopausal, has history of endometrial cancer at age 33, and had first child at age 34. Family history of breast cancer in paternal aunt. Physical Findings: Nurse did not find any significant physical abnormalities on exam. (nurse javad). MG Diagnostic Mammo w CAD KIMBERLY Bilateral CC and MLO view(s) were taken. Spot compression MLO view(s) were taken of the right breast. Prior study comparison: May 25, 2017, bilateral MG screening mammo w CAD. September 18, 2014, bilateral MG screening mammo w CAD. The breast tissue is heterogeneously dense. This may lower the sensitivity of mammography. Right breast suspicious asymmetry at posterior depth resolves on additional spot compression view. An ultrasound will be done bilaterally in reference to the nipple discharge. ASSESSMENT: Incomplete: need additional imaging evaluation, BI-RAD 0 RECOMMENDATION: Ultrasound of both breasts.
--- NOTE | 2018-09-20 10:16 | USB ---
History: Patient is postmenopausal, has history of endometrial cancer at age 33, and had first child at age 34. Family history of breast cancer in paternal aunt. US Breast Limited BILAT Bilateral limited breast ultrasound including focal area of concern, retroareolar and axilla demonstrates no cystic or solid lesion seen on left breast. There are no dilated ducts on the left. On right breast posterior nipple is a duct with debris, although no solid mass. In the axillary tail on the right breast there is a 7 mm oval lymph node. ASSESSMENT: Suspicious, BI-RAD 4 RECOMMENDATION: Surgical consultation of the right breast. Right breast debris filled duct is amendable to ultrasound needle localization if needed. Patient has an appointment with Dr. James today, 09/20/18 Patient was given her results today 09/20/18
== END | disposition home or self-care (01) ==
LOC: RADMAMWWP 07:46
PROVIDERS: ATTEND Family Medicine
DX: N64.52 Nipple discharge (principal); R92.8 Other abnormal and inconclusive findings on diagnostic imaging of breast
CPT/HCPCS: 77066

== ENCOUNTER 2018-10-24 07:31 | Day surgery (SDC) | payer BC ==
[2018-10-18 13:51] VITALS: BMI 37.2
--- NOTE | 2018-10-20 17:20 | P.PN ---
Subjective Progress Note Date: 10/20/18 The patient is a 63 year old white female with a complaint of noticing that her right breast felt damp, and then noted some discharge in her bra. She underwent a mammogram which revealed some right breast suspicious asymmetry in the posterior depth which resolved and additional spot compressions and ultrasound was done to reference the nipple discharge. On ultrasound on the right she was noted to have a dilated duct with debris. No dilated ducts were noted on the left. The patient states she is uncertain as to the color of the discharge. In her bra leaves a dark rebekah. The patient has no history of infection or, to her breast. She has no history of any lumps or masses in her breasts. The patient drinks about 32 oz of ice tea/day. She also drinks three cups of coffee/day. The patient does not smoke and is not exposed to secondhand smoke. The patient is chocolate rarely. The patient does not take any hormones Family history: 1. paternal aunt: breast cancer 2. sister: Non-Hodgkin's lymphoma 3.patient: cervical cancer Hormonal history: Menarche:16 , 1 Ab, breast fed: no, first born at 34 Menopause: Hysterectomy in her 40s, did not take her ovaries done for cervical cancer control pills: none hormones: none Past surgical history: 1. Gastric sleeve 2. hysterectomy 3. chest cyst 4. left leg Medical history: 1.kidney stones 2. Rheumatoid arthritis Social History: smoke: none alcohol: occasional drugs: none - Constitutional Constitutional: Reports sweats, Denies chills, Denies fever - EENT Eyes: denies blurred vision, denies pain Ears: deny: decreased hearing, tinnitus Ears, nose, mouth and throat: Denies headache, Denies sore throat - Breasts Breasts: bilateral: as per HPI - Cardiovascular Cardiovascular: Denies chest pain, Denies shortness of breath - Respiratory Respiratory: Denies cough, Denies 7 - Gastrointestinal Gastrointestinal: Denies abdominal pain, Denies diarrhea, Denies nausea, Denies vomiting - Genitourinary (Female) Genitourinary: Reports kidney stones, Denies dysuria, Denies hematuria - Menstruation Menstruation: Reports post hysterectomy - Musculoskeletal Comment: Rheumatoid and osteoarthritis - Integumentary Comment: 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 for several moths Integumentary: Reports pruritus, Reports rash - Neurological Neurological: Denies numbness, Denies weakness - Psychiatric Psychiatric: Denies anxiety, Denies depression - Endocrine Endocrine: Denies fatigue, Denies weight change - Hematologic/Lymphatic Comment: none - Allergic/Immunologic Allergic/Immunologic: Reports as per HPI Past Medical History Past Medical History: Rheumatoid Arthritis (RA), Thyroid Disorder Additional Past Medical History / Comment(s): Heart murmur-patient has been previously worked up for this., neck pain, History of Any Multi-Drug Resistant Organisms: None Reported Past Surgical History: Bariatric Surgery, Hysterectomy Additional Past Surgical History / Comment(s): cervical CA, Past Psychological History: No Psychological Hx Reported Smoking Status: Former smoker Past Alcohol Use History: Occasional Past Drug Use History: None Reported Medications and Allergies Home Medications Medication Instructions Recorded Confirmed Type EPINEPHrine (Auto Inject) [Epipen] 0.3 mg IM ONCE PRN #2 syringe 07/27/16 09/20/18 Rx hydrOXYzine HCL [Atarax] 25 mg PO TID PRN #15 tab 04/16/17 09/20/18 Rx Cetirizine HCl [Zyrtec] 30 mg PO HS 09/20/18 09/20/18 History Cholecalciferol [Vitamin D3 (25 2,000 unit PO DAILY 09/20/18 09/20/18 History Mcg = 1000 Iu)] Fexofenadine/Pseudoephedrine 1 each PO BID 09/20/18 09/20/18 History [Ange-D 12 Hour Tablet] Allergies Allergy/AdvReac Type Severity Reaction Status Date / Time ibuprofen [From Advil] Allergy Rash/Hives Verified 09/20/18 10:29 naproxen sodium [From Aleve] Allergy Rash/Hives Verified 09/20/18 10:29 sulfamethoxazole Allergy Rash/Hives Verified 09/20/18 10:29 [From Bactrim] trimethoprim [From Bactrim] Allergy Rash/Hives Verified 09/20/18 10:29 Objective - Exam BMI 37.2 - Constitutional General appearance: Present: obese - EENT Eyes: Present: EOMI ENT: Present: hearing grossly normal - Neck Neck: Present: normal ROM - Respiratory Respiratory: bilateral: CTA - Cardiovascular Rhythm: regular Heart sounds: normal: S1, S2 - Gastrointestinal General gastrointestinal: Present: soft - Integumentary Integumentary: Present: normal turgor - Musculoskeletal Musculoskeletal: Present: gait normal - Psychiatric Psychiatric: Present: A&O x's 3, appropriate affect, intact judgment & insight - Additional findings Additional findings: Breast exam: Block 40 C Right breast: Multi-positional exam fibrocystic changes, clear nipple discharge or 12 o'clock position Axilla: Shoddy adenopathy Left breast: Multi-positional exam no dominant masses or nodules of concern, fibrocystic changes Left axilla: No adenopathy of concern guiac test of the nipple discharge in the right which performed and was guaiac positive this was on examination of September 20 Assessment and Plan Assessment: Impression: 1. Abnormal mammogram right breast 2. Abnormal ultrasound right breast 3. Nipple discharge right breast guaiac-positive 4. Family history of breast cancer 5. Personal history cervical cancer 6. History of rheumatoid and osteoarthritis 7. Obesity Plan: 1. Duct exploration right breast with ultrasound-guided localization 2. Medical management of medical conditions risk and benefits of the surgery discussed with the patient and she wishes to proceed. CC: Dr. Jalloh
[~2018-10-24 07:31] MED LIST: HEPARIN SODIUM,PORCINE 5,000 UNIT/ML 1 ML VIAL SQ ONE; HYDROmorphone 0.5 MG/0.5 ML SYRINGE IVP PRN; LACTATED RINGERS 1,000 ML IV SCH; Pre Op ABX Message 1 EACH MISC MISCELLANE ONE
[2018-10-24] MEDS ORDERED: ALPRAZolam 0.25 MG TAB PO ONE (08:00)
[2018-10-24] MEDS ORDERED: LIDOCAINE 1% 20 ML VIAL (10MG/ML) FOR IV START INTRADERMA ONE (08:10)
[2018-10-24] MEDS ORDERED: LIDOCAINE 1% INJ 10MG/ML (20 ML MDV) SQ ONE (08:46)
[2018-10-24] MEDS ORDERED: HEPARIN SODIUM,PORCINE 5,000 UNIT/ML 1 ML VIAL SQ ONE (09:16)
[2018-10-24] MEDS ORDERED: DEXAMETHASONE SOD PHOSPHATE 10 MG/ML 1 ML VIAL IV ONE (09:28)
[2018-10-24] MEDS ORDERED: ONDANSETRON 4 MG/2 ML VIAL IVP ONE (09:28)
[2018-10-24] MEDS ORDERED: SCOPOLAMINE 1.5MG/72HR PATCH TRANSDERM ONE (09:28)
[2018-10-24] MEDS ORDERED: SUCCINYLCHOLINE CHLORIDE 100 MG/5 ML SYR IV ONE (09:51)
[2018-10-24] MEDS ORDERED: PROPOFOL 10 MG/ML 20 ML VIAL IV ONE (09:51)
[2018-10-24] MEDS ORDERED: MIDAZOLAM 2 MG/2 ML VIAL ONE (09:51)
[2018-10-24] MEDS ORDERED: HYDROmorphone (PF) 1 MG/ML ONE (09:51)
[2018-10-24] MEDS ORDERED: LIDOCAINE 1% INJ 10MG/ML (20 ML MDV) ONE (09:51)
[2018-10-24] MEDS ORDERED: ePHEDrine SULFATE/0.9% NACL/PF 50 MG/5 ML SYRINGE IV ONE (09:51)
[2018-10-24] MEDS ORDERED: fentaNYL (PF) 50 MCG/ML 2 ML AMP ONE (09:51)
[2018-10-24] MEDS ORDERED: LACTATED RINGERS 1,000 ML IV ONE (11:00)
--- NOTE | 2018-10-24 11:08 | P.OP ---
Date of Procedure: 10/24/18 Preoperative Diagnosis: Discharge dilated duct right breast guaiac positive Postoperative Diagnosis: Same Procedure(s) Performed: Right breast needle localization duct exploration with oncoplastic tissue closure Anesthesia: YESENIAA Surgeon: Paris James Estimated Blood Loss (ml): 3 IV fluids (ml): 700 Pathology: other (Breast tissue) Condition: stable Disposition: same day Indications for Procedure: Bloody nipple discharge with abnormal duct on ultrasound Operative Findings: Dilated ducts Description of Procedure: The patient is a 63-year-old white female was noted to have abnormal nipple discharge and a dilated duct on ultrasound. The area of the duct was localized preoperatively via needle localization. The patient was taken to the operating room and following induction of anesthesia the breast was prepped and draped in a sterile fashion. A circumareolar incision was made and carried down to the breast tissue. Careful dissection to the area of the proximal under the periareolar complex was performed. The dissection was carried laterally to identify the shaft of the needle which was exposed and the needle was then dissected free from the surrounding tissue. Circumferential dissection of the dilated ductal system under the nipple areolar complex was carried down to the chest wall. This was resected using the electrocautery device as well as the Harmonic scalpel. After this was done the tissues were dissected and freed from the skin both superiorly and inferiorly. The tissue was dissected approximately 3 x 5 cm superiorly and approximately 3 x 5 cm inferiorly. These tissue pillars were then swung together to form a fullness under the nipple areolar complex it would not be kind case. These were secured using a Vicryl suture. This was done after we were assured that hemostasis was attained in the wound had been well irrigated. Following this the circumareolar incision was closed using a 3- 0 Vicryl suture followed by a 4-0 Monocryl. Steri-Strips were applied. Patient tolerated procedure in stable condition. All instrument and sponge counts were correct at the end of the case.
--- NOTE | 2018-10-24 11:10 | P.DS ---
Providers Attending physician: Paris James Primary care physician: Berna Jalloh Plan - Discharge Summary Discharge Rx Participant: Yes New Discharge Prescriptions: No Action EPINEPHrine (Auto Inject) [Epipen] 0.3 mg IM ONCE PRN #2 syringe PRN Reason: Anaphylaxis hydrOXYzine HCL [Atarax] 25 mg PO TID PRN #15 tab PRN Reason: Itching Cholecalciferol [Vitamin D3 (25 Mcg = 1000 Iu)] 10,000 unit PO DAILY Fexofenadine/Pseudoephedrine [Ange-D 12 Hour Tablet] 1 each PO DAILY Cetirizine HCl [Zyrtec] 30 mg PO HS tiZANidine [Zanaflex] 4 mg PO Q8HR PRN PRN Reason: muscle relaxer Magnesium 200 mg PO DAILY Discharge Medication List EPINEPHrine (Auto Inject) [Epipen] 0.3 mg IM ONCE PRN #2 syringe 07/27/16 [Rx] hydrOXYzine HCL [Atarax] 25 mg PO TID PRN #15 tab 04/16/17 [Rx] Cetirizine HCl [Zyrtec] 30 mg PO HS 09/20/18 [History] Cholecalciferol [Vitamin D3 (25 Mcg = 1000 Iu)] 10,000 unit PO DAILY 09/20/18 [History] Fexofenadine/Pseudoephedrine [Ange-D 12 Hour Tablet] 1 each PO DAILY 09/20/18 [History] Magnesium 200 mg PO DAILY 10/18/18 [History] tiZANidine [Zanaflex] 4 mg PO Q8HR PRN 10/18/18 [History] Follow up Appointment(s)/Referral(s): Paris James MD [STAFF PHYSICIAN] - 1 Week Patient Instructions/Handouts: *Surgery [facility] - Scopalamine Patch Instructions Activity/Diet/Wound Care/Special Instructions: Do not drive today We have brought at all times Patient may shower after 48 hours Discharge Disposition: HOME SELF-CARE
[2018-10-24 11:21] VITALS: TEMP 97.5
[2018-10-24 12:03] VITALS: RESP 18
--- NOTE | 2018-10-24 12:14 | USB ---
EXAMINATION TYPE: US breast localization RT, MG surgical specimen RT DATE OF EXAM: 10/24/2018 COMPARISON: Bilateral breast ultrasound dated 09/20/2018 CLINICAL HISTORY: R92.8 ABNORMAL MAMMOGRAM. Dilated duct with debris in the right retroareolar region for which needle localization was recommended. FINDINGS: The procedure of ultrasound guided needle localization with wire placement and than surgical excision was explained to the patient. Benefits, alternatives, and risks were discussed. An informed consent was then obtained. Preprocedural timeout was performed. Preprocedural scanning redemonstrated the debris-filled vascular dilated duct in the retroareolar right breast. The overlying skin was prepped and draped in usual sterile fashion. 7 cc of 1% lidocaine was used as anesthetic into the skin and subcutaneous tissue up to the level of area of concern. A 5 cm needle was used. It was placed under direct sonographic guidance. The distal tip of the wire is located approximately 4.6 cm from the skin entry site with the distal end of the reinforced segment through the dilated duct. Images were reviewed with the surgeon. Subsequent ML and CC right breast mammogram show the where to be in satisfactory position. At this point, wire was placed and the needle was withdrawn. The wire was fixed to patient's skin. Images were marked for surgeon. The patient tolerated the procedure well without any immediate complication. The patient was kept in the radiology department for short stay after the procedure and then taken to surgery for surgical excision. Needle localization wire in its entirety is identified in specimen mammogram. The patient was kept in hospital for short stay after the procedure and then discharged home in stable condition. IMPRESSION: Successful, uncomplicated needle localization with wire placement and surgical excision of a dilated right retroareolar duct with internal debris in the right breast, full pathology results to follow. Pathology Results: High Risk RIGHT BREAST, NEEDLE LOCALIZATION EXCISION: Sclerotic intraductal papilloma, margins negative. Background fibrocystic changes including focal sclerosing adenosis. Recommendation Follow up ultrasound of the right breast in 6 months. RUDDY
[2018-10-24 13:18] VITALS: BP 116/72; PULSE 69
--- NOTE | 2018-10-24 13:37 | MM ---
Reason for exam: additional evaluation requested from abnormal screening. Last mammogram was performed 1 month ago. History: Patient is postmenopausal, has history of endometrial cancer at age 33, and had first child at age 34. Family history of breast cancer in paternal aunt. MG Diagnostic Mammo RT Wo CAD CC and ML view(s) were taken of the right breast. Prior study comparison: September 20, 2018, bilateral MG diagnostic mammo w CAD K[facility]. May 25, 2017, bilateral MG screening mammo w CAD. ASSESSMENT: Post procedure mammogram for marker placement RECOMMENDATION: Ultrasound of the right breast in 6 months. PENDING PATHOLOGY RESULTS.
== END 2018-10-24 13:21 | disposition home or self-care (01) ==
LOC: OR 07:31
PROVIDERS: ATTEND Surgery
DX: D24.1 Benign neoplasm of right breast (principal); N60.11 Diffuse cystic mastopathy of right breast; N60.21 Fibroadenosis of right breast; N60.41 Mammary duct ectasia of right breast; N64.52 Nipple discharge; R92.8 Other abnormal and inconclusive findings on diagnostic imaging of breast; M06.9 Rheumatoid arthritis, unspecified; M19.90 Unspecified osteoarthritis, unspecified site; E07.9 Disorder of thyroid, unspecified; E66.9 Obesity, unspecified; Z79.899 Other long term (current) drug therapy; Z87.442 Personal history of urinary calculi; Z87.891 Personal history of nicotine dependence; Z85.42 Personal history of malignant neoplasm of other parts of uterus; Z88.6 Allergy status to analgesic agent; Z88.2 Allergy status to sulfonamides; Z88.0 Allergy status to penicillin; Z88.8 Allergy status to other drugs, medicaments and biological substances; Z90.710 Acquired absence of both cervix and uterus; Z98.84 Bariatric surgery status; Z78.0 Asymptomatic menopausal state; Z80.3 Family history of malignant neoplasm of breast; Z80.7 Family history of other malignant neoplasms of lymphoid, hematopoietic and related tissues; Z68.37 Body mass index [BMI] 37.0-37.9, adult
CPT/HCPCS: 19110; 88307; 77065; 76098; 19285; J2250; J1644; J1100; J2405; J2001; J3010; J1170 ×2; J0330; J2704

== ENCOUNTER → 2018-11-02 | Outpatient (CLI) | payer BC ==
[2018-11-02 16:25] VITALS: BP 143/73; PULSE 64; RESP 18; TEMP 97.8; BMI 37.2
--- NOTE | 2018-11-02 16:34 | P.PN ---
Progress Note - Text Progress Note Date: 11/02/18 Pina is a 63-year-old white female status post right breast needle local excisional biopsy on 9318. Pathology revealed a sclerotic intraductal papilloma. The margins were negative. Patient is doing well since that time. No fever or chills. No evidence of any infection. Lungs: Clear Heart systolic ejection murmur Incision clean and dry. Periareolar area no evidence of infection Impression: Intraductal papilloma Plan: Repeat right breast mammogram and physician exam in 6 months time. Cc: DR. Berna Jalloh
== END | disposition home or self-care (01) ==
LOC: WWCWWP 16:07
PROVIDERS: ATTEND Surgery
DX: Z53.9 Procedure and treatment not carried out, unspecified reason (principal)

== ENCOUNTER → 2019-03-06 | Outpatient (CLI) | payer BC ==
--- NOTE | 2019-03-06 15:36 | US ---
EXAMINATION TYPE: US kidneys/renal and bladder DATE OF EXAM: 03/06/2019 COMPARISON: NONE CLINICAL HISTORY: R31.9 Disease of stomach and duodenum. rt flank pain EXAM MEASUREMENTS: Right Kidney: 12.2 x 4.6 x 6.3 cm Left Kidney: 10.7 x 5.6 x 5.9 cm Right Kidney: No hydronephrosis or masses seen Left Kidney: No hydronephrosis or masses seen Bladder: wnl Bilateral Jets seen: Yes There is no evidence for hydronephrosis at this point in time. No nephrolithiasis is seen. No moon s are identified. The urinary bladder is anechoic. Bilateral ureteral jets are seen. IMPRESSION: No hydronephrosis or nephrolithiasis is seen. Urinary bladder is anechoic and unremarkabl e.
== END | disposition home or self-care (01) ==
LOC: RADUSWWP 14:57
PROVIDERS: ATTEND Nurse Practitioner
DX: K31.9 Disease of stomach and duodenum, unspecified (principal); N23 Unspecified renal colic; R31.9 Hematuria, unspecified
CPT/HCPCS: 76770

== ENCOUNTER → 2019-04-30 | Outpatient (CLI) | payer BC ==
--- NOTE | 2019-04-30 10:21 | MM ---
Reason for exam: follow-up at short interval from prior study. Last mammogram was performed 6 months ago. History: Patient is postmenopausal, has history of high-risk lesion on a previous biopsy at age 63, has history of endometrial cancer at age 33, and had first child at age 34. Family history of breast cancer in paternal aunt. High risk US breast localization RT of the right breast, October 24, 2018. Physical Findings: Nurse did not find any significant physical abnormalities on exam. MG Diagnostic Mammo RT w CAD CC and MLO view(s) were taken of the right breast. Prior study comparison: October 24, 2018, right breast MG diagnostic mammo RT wo CAD. September 20, 2018, bilateral MG diagnostic mammo w CAD [facility]. There are scattered fibroglandular densities. No suspicious abnormality. Surgical excision of the right papilloma. These results were verbally communicated with the patient and result sheet given to the patient on 04/30/19. ASSESSMENT: Negative, BI-RAD 1 RECOMMENDATION: Routine screening mammogram of both breasts in 4 months. Back on schedule for August 2019.
== END | disposition home or self-care (01) ==
LOC: RADMAMWWP 09:03
PROVIDERS: ATTEND Surgery
DX: R92.8 Other abnormal and inconclusive findings on diagnostic imaging of breast (principal)
CPT/HCPCS: 77065

== ENCOUNTER → 2019-08-10 | Outpatient (CLI) | payer BC ==
--- NOTE | 2019-08-10 14:57 | US ---
EXAMINATION TYPE: US -soft tissue neck DATE OF EXAM: 08/10/2019 COMPARISON: NONE CLINICAL HISTORY: R22.1 SWELLING,MASS AND LUMP. GLAND SIZE: Patient has right neck swelling. She just finished a round of antibiotics and steroids. Lymph nodes noted in submandibular region. Prominent lymph nodes bilaterally. No lymph node with a transverse diameter greater than 1 cm is evid ent however. IMPRESSION: 1. Scattered lymphadenopathy
== END | disposition home or self-care (01) ==
LOC: RADUSWWP 14:14
PROVIDERS: ATTEND Family Medicine
DX: R59.1 Generalized enlarged lymph nodes (principal)
CPT/HCPCS: 76536

== ENCOUNTER → 2019-10-24 | Outpatient (CLI) | payer BC ==
--- NOTE | 2019-10-25 10:52 | MM ---
Reason for exam: screening (asymptomatic). Last mammogram was performed 6 months ago. History: Patient is postmenopausal, has history of high-risk lesion on a previous biopsy at age 63, has history of endometrial cancer at age 33, and had first child at age 34. Family history of breast cancer in paternal aunt. High risk US breast localization RT of the right breast, October 24, 2018. Physical Findings: A clinical breast exam by your physician is recommended on an annual basis and results should be correlated with mammographic findings. MG Screening Mammo w CAD Bilateral CC and MLO view(s) were taken. Prior study comparison: April 30, 2019, right breast MG diagnostic mammo RT w CAD. October 24, 2018, right breast MG diagnostic mammo RT wo CAD. The breast tissue is heterogeneously dense. This may lower the sensitivity of mammography. There is no discrete abnormality. No significant changes when compared with prior studies. ASSESSMENT: Negative, BI-RAD 1 RECOMMENDATION: Routine screening mammogram of both breasts in 1 year.
== END | disposition home or self-care (01) ==
LOC: RADMAMWWP 09:12
PROVIDERS: ATTEND Surgery
DX: Z12.31 Encounter for screening mammogram for malignant neoplasm of breast (principal)
CPT/HCPCS: 77067

== ENCOUNTER → 2019-11-01 | Outpatient (CLI) | payer BC ==
[2019-11-01 11:45] VITALS: BP 105/71; PULSE 74; RESP 16; TEMP 97.8
--- NOTE | 2019-11-01 12:02 | P.PN ---
Subjective Progress Note Date: 11/01/19 Principal diagnosis: Follow-up for excision of intraductal papilloma right breast The patient is a 64 year old white female seen on 09-20-18 with a complaint of noticing that her right breast felt damp, and then noted some discharge in her bra. She underwent a mammogram which revealed some right breast suspicious asymmetry in the posterior depth which resolved with additional spot compressions and ultrasound was done to reference the nipple discharge. On ultrasound on the right she was noted to have a dilated duct with debris. No dilated ducts were noted on the left. The patient was uncertain as to the color of the discharge. The patient had no history of infection or trauma to her breast. She has no history of any lumps or masses in her breasts. She underwent a right breast needle localization and excisional biopsy on 11-02-18 which revealed a sclerotic intraductal papilloma. Bilateral screening mammogram on 10-24-19 was benign BIRAD 1. He has not having any nipple discharge at this time. No pain masses lumps or nodules in her breasts. The patient drinks about 32 oz of ice tea/day. She also drinks three cups of coffee/day. The patient does not smoke and is not exposed to secondhand smoke. The patient is chocolate rarely. The patient does not take any hormones Family history: 1. paternal aunt: breast cancer 2. sister: Non-Hodgkin's lymphoma 3.patient: cervical cancer Hormonal history: Menarche:16 , 1 Ab, breast fed: no, first born at 34 Menopause: Hysterectomy in her 40s, did not take her ovaries done for cervical cancer control pills: none hormones: none Past surgical history: 1. Gastric sleeve 2. hysterectomy 3. chest cyst 4. left leg Medical history: 1.kidney stones 2. Rheumatoid arthritis Social History: smoke: none alcohol: occasional drugs: none - Constitutional Constitutional: Reports sweats, Denies chills, Denies fever - EENT Eyes: denies blurred vision, denies pain Ears: deny: decreased hearing, tinnitus Ears, nose, mouth and throat: Denies headache, Denies sore throat - Breasts Breasts: bilateral: as per HPI - Cardiovascular Cardiovascular: Denies chest pain, Denies shortness of breath - Respiratory Respiratory: Denies cough - Gastrointestinal Gastrointestinal: Denies abdominal pain, Denies diarrhea, Denies nausea, Denies vomiting - Genitourinary (Female) Genitourinary: Reports kidney stones, Denies dysuria, Denies hematuria - Menstruation Menstruation: Reports post hysterectomy - Musculoskeletal Comment: Rheumatoid and osteoarthritis - Integumentary Comment: saw director for rash on palms of hands rash for several moths, treated with zyrtec and cleared up Integumentary: - Neurological Neurological: Denies numbness, Denies weakness - Psychiatric Psychiatric: Denies anxiety, Denies depression - Endocrine Endocrine: Denies fatigue, Denies weight change - Hematologic/Lymphatic Comment: none - Allergic/Immunologic Allergic/Immunologic: Reports as per HPI Objective - Vital Signs Vital signs: Vital Signs Temp 97.8 F 11/01/19 11:40 Pulse 74 11/01/19 11:40 Resp 16 11/01/19 11:40 BP 105/71 11/01/19 11:40 Pulse Ox 95 11/01/19 11:40 Intake & Output 10/31/19 11/01/19 11/01/19 18:59 06:59 18:59 Weight 99.79 kg - Exam BMI 39 - Constitutional General appearance: Present: obese - EENT Eyes: Present: EOMI ENT: Present: hearing grossly normal - Neck Neck: Present: normal ROM - Respiratory Respiratory: bilateral: CTA - Cardiovascular Rhythm: regular Heart sounds: normal: S1, S2 - Gastrointestinal General gastrointestinal: Present: normal bowel sounds, soft - Integumentary Integumentary: Present: normal turgor - Musculoskeletal Musculoskeletal: Present: gait normal - Psychiatric Psychiatric: Present: A&O x's 3, appropriate affect, intact judgment & insight - Additional findings Additional findings: Breast Exam: Bra 42C inspection: bilateral grade 3 ptosis Palpation: Right breast: Multi-positional exam fibrocystic changes no dominant masses or nodules of concern, well-healed scar from prior biopsy Right axilla: No adenopathy of concern Left breast: Multiple positional exam fibrocystic changes no dominant masses or nodules of concern Left axilla: No adenopathy of concern Assessment and Plan Assessment: Impression: 1. Bilateral fibrocystic breast changes 2. Prior excision of sclerotic intraductal papilloma right breast no further breast drainage 3. Arthritis 4. Resolved palmar rash with Zyrtec Plan: 1. Bilateral mammogram in 1 year with physician exam at that time 2. Patient will call sooner if any questions or concerns CC: Dr. Jalloh encounter 15 minutes, > 50% of time in planning and counselling
== END | disposition home or self-care (01) ==
LOC: WWCWWP 11:19
PROVIDERS: ATTEND Surgery
DX: Z53.9 Procedure and treatment not carried out, unspecified reason (principal)

== ENCOUNTER → 2020-10-28 | Outpatient (CLI) | payer OTHER ==
--- NOTE | 2020-10-29 09:21 | MM ---
Reason for exam: screening (asymptomatic). Last mammogram was performed 1 year ago. History: Patient is postmenopausal, has history of high-risk lesion on a previous biopsy at age 63, has history of endometrial cancer at age 33, and had first child at age 34. Family history of breast cancer in paternal aunt. High risk US breast localization RT of the right breast, October 24, 2018. Physical Findings: A clinical breast exam by your physician is recommended on an annual basis and results should be correlated with mammographic findings. MG Screening Mammo w CAD Bilateral CC and MLO view(s) were taken. Prior study comparison: October 24, 2019, bilateral MG screening mammo w CAD. April 30, 2019, right breast MG diagnostic mammo RT w CAD. There are scattered fibroglandular densities. There is no discrete abnormality. No significant changes when compared with prior studies. ASSESSMENT: Negative, BI-RAD 1 RECOMMENDATION: Routine screening mammogram of both breasts in 1 year.
== END | disposition home or self-care (01) ==
LOC: RADMAMWWP 08:25
PROVIDERS: ATTEND Surgery
DX: Z12.31 Encounter for screening mammogram for malignant neoplasm of breast (principal); Z78.0 Asymptomatic menopausal state; Z80.3 Family history of malignant neoplasm of breast; Z85.42 Personal history of malignant neoplasm of other parts of uterus
CPT/HCPCS: 77067

== ENCOUNTER 2020-11-23 22:33 | Emergency (ER) | payer OTHER ==
[2020-11-23 22:49] VITALS: BP 161/110; PULSE 83; RESP 16; TEMP 98
[2020-11-23] MEDS ORDERED: predniSONE 50 MG TAB PO STA (23:31)
--- NOTE | 2020-11-23 23:33 | ED ---
General Adult HPI - General Chief complaint: Extremity Problem,Nontraumatic Stated complaint: sharp pain in head Time Seen by Provider: 11/23/20 22:55 Source: patient, RN notes reviewed Mode of arrival: ambulatory Limitations: no limitations - History of Present Illness Initial comments: Patient is a 65-year-old female presenting to the emergency Department with complaints of left sided upper trapezius muscle pain causing a headache. She states she's been having this discomfort over the past 1-2 months, however the last couple nights she's been having sharp pains at the left side base of her skull. She states it woke her up this evening from her sleep so came in for reevaluation. She denies any falls or trauma, no fevers or chills. She does have history of rheumatoid arthritis and thinks its was started everything. She denies any dizziness or lightheadedness, no blurry vision. She has no further complaints at this time. - Related Data Home Medications Medication Instructions Recorded Confirmed Cetirizine HCl [Zyrtec] 30 mg PO HS 09/20/18 11/01/19 Cholecalciferol [Vitamin D3 (25 10,000 unit PO HS 09/20/18 11/01/19 Mcg = 1000 Iu)] Fexofenadine/Pseudoephedrine 1 each PO QAM 09/20/18 11/01/19 [Ange-D 12 Hour Tablet] Previous Rx's Medication Instructions Recorded EPINEPHrine (Auto Inject) [Epipen] 0.3 mg IM ONCE PRN #2 syringe 07/27/16 Cyclobenzaprine [Flexeril] 5 mg PO BID #10 tablet 11/23/20 predniSONE 50 mg PO DAILY #5 tab 11/23/20 Allergies Allergy/AdvReac Type Severity Reaction Status Date / Time acetaminophen [From Tylenol] Allergy Swelling Verified 11/23/20 22:49 ibuprofen [From Advil] Allergy Rash/Hives Verified 11/23/20 22:49 naproxen sodium [From Aleve] Allergy Anaphylaxis Verified 11/23/20 22:49 Penicillins Allergy Anaphylaxis Verified 11/23/20 22:49 Sulfa (Sulfonamide Allergy Anaphylaxis Verified 11/23/20 22:49 Antibiotics) sulfamethoxazole Allergy Rash/Hives Verified 11/23/20 22:49 [From Bactrim] tramadol [From Ultram] Allergy Swelling Verified 11/23/20 22:49 trimethoprim [From Bactrim] Allergy Rash/Hives Verified 11/23/20 22:49 Review of Systems ROS Statement: Those systems with pertinent positive or pertinent negative responses have been documented in the HPI. ROS Other: All systems not noted in ROS Statement are negative. Past Medical History Past Medical History: Rheumatoid Arthritis (RA), Thyroid Disorder Additional Past Medical History / Comment(s): Heart murmur-patient has been previously worked up for this; neck pain; thyroid nodules History of Any Multi-Drug Resistant Organisms: None Reported Past Surgical History: Bariatric Surgery, Hysterectomy Additional Past Surgical History / Comment(s): cervical CA 1988; hysterectomy 1996; bariatric surgery 2013; right leg surgery 1984; Past Anesthesia/Blood Transfusion Reactions: No Reported Reaction Past Psychological History: No Psychological Hx Reported Smoking Status: Former smoker Past Alcohol Use History: Occasional Past Drug Use History: None Reported - Past Family History Sister(s) Family Medical History: Cancer Additional Family Medical History / Comment(s): nonhodgkins lymphoma General Exam - General Exam Comments Initial Comments: GENERAL: Patient is well-developed and well-nourished. Patient is nontoxic and in no acute distress. HEAD: Atraumatic, normocephalic. EYES: Pupils equal round and reactive to light, extraocular movements intact, sclera anicteric, conjunctiva are normal. Eyelids were unremarkable. ENT: Moist mucous membranes. NECK: Normal range of motion, supple without lymphadenopathy or JVD. No midline tenderness. LUNGS: Unlabored respirations. Breath sounds clear to auscultation bilaterally and equal. No wheezes rales or rhonchi. HEART: Regular rate and rhythm without murmurs, rubs or gallops. ABDOMEN: Soft, nontender, normoactive bowel sounds. No guarding, no rebound. No masses appreciated. : Deferred MUSCULOSKELETAL: Normal extremities with adequate strength and normal range of motion, no pitting or edema. No clubbing or cyanosis. Patient has tenderness of the left upper trapezius all the way up to the base of skull at the attachment site. NEUROLOGICAL: Patient is alert and oriented x 3. Normal speech, normal gait. PSYCH: Normal mood, normal affect. SKIN: Warm, Dry, normal turgor, no rashes or lesions noted. Limitations: no limitations Course Vital Signs 11/23/20 22:46 Temperature 98.0 F Pulse Rate 83 Respiratory 16 Rate Blood Pressure 161/110 O2 Sat by Pulse 96 Oximetry Medical Decision Making - Medical Decision Making Patient is a 65-year-old female presenting with left-sided upper neck pain that the going on for the last couple months but increased pain over the past couple days. Her exam is consistent with muscle spasms of the left upper trapezius muscle. Recommended heat to area, massage. We'll give her dose of steroids and muscle relaxer today. She tries at home. She is agreeable this and is stable for discharge. Disposition Clinical Impression: Trapezius muscle spasm, Headache Disposition: HOME SELF-CARE Condition: Stable Instructions (If sedation given, give patient instructions): Muscle Spasm (ED) Additional Instructions: Please return to the Emergency Department if symptoms worsen or any other concerns. May continue with Tylenol for discomfort. Recommend course of steroids to help with inflammation, trial for muscle relaxer as well. Recommend heat to the area, gentle massage. Follow-up with your primary care. Prescriptions: Cyclobenzaprine [Flexeril] 5 mg PO BID #10 tablet predniSONE 50 mg PO DAILY #5 tab Is patient prescribed a controlled substance at d/c from ED?: No Referrals: Berna Jalloh MD [Primary Care Provider] - 1-2 days Time of Disposition: 23:33
[2020-11-23] MEDS ORDERED: CYCLOBENZAPRINE 5 MG TAB PO ONE (23:45)
== END 2020-11-23 23:47 | disposition home or self-care (01) ==
LOC: EC 22:33
DX: R51.9 Headache, unspecified (principal); M62.838 Other muscle spasm; M06.9 Rheumatoid arthritis, unspecified; Z87.891 Personal history of nicotine dependence
CPT/HCPCS: 99283; J7512

== ENCOUNTER 2021-09-14 01:50 | Emergency (ER) | payer OTHER ==
[2021-09-14 02:00] VITALS: BP 184/99; PULSE 86; RESP 19; TEMP 98.1
[2021-09-14] MEDS ORDERED: MORPHINE SULFATE 4 MG/ML SYRINGE IV STA (02:05)
[2021-09-14] MEDS ORDERED: SODIUM CHLORIDE 0.9% 1,000 ML IV STA (02:05)
[2021-09-14] MEDS ORDERED: ONDANSETRON 4 MG/2 ML VIAL IVP STA (02:05)
[2021-09-14] MEDS ORDERED: PANTOPRAZOLE 40 MG/10 ML VIAL IVP STA (02:05)
[2021-09-14 02:56] LABS: Basophils % (A) 0 %; Eosinophils # (A) 0.1 k/uL (0-0.7); Eosinophils % (A) 1 %; HCT 44.4 % (34.0-46.0); HGB 14.6 gm/dL (11.4-16.0); Lymphocytes % (A) 11 %; MCH 30.3 pg (25.0-35.0); MCHC 32.8 g/dL (31.0-37.0); MCV 92.3 fL (80.0-100.0); Mean Platelet Volume 8.5; Monocytes # (A) 0.2 k/uL (0-1.0); Monocytes % (A) 3 %; Neutrophils # (A) 7.4 k/uL (1.3-7.7); Neutrophils % (A) 84 %; Platelet Count 250 k/uL (150-450); RBC 4.81 m/uL (3.80-5.40); RDW 13.5 % (11.5-15.5); WBC 8.8 k/uL (3.8-10.6)
[2021-09-14 03:08] LABS: ALT 12 U/L (4-34); African American GFR (CKD) >90 (>60 ml/min/1.73 sqM); Amylase 53 U/L (30-110); Anion Gap 14 mmol/L; Blood Urea Nitrogen 11 mg/dL (7-17); Calcium 9.5 mg/dL (8.4-10.2); Carbon Dioxide 21 mmol/L (22-30); Chloride 101 mmol/L (98-107); Glucose 100 mg/dL (74-99); Lipase 94 U/L (23-300); Non-African American GFR(CKD) >90 (>60 ml/min/1.73 sqM); Sodium 136 mmol/L (137-145); Total Bilirubin 0.8 mg/dL (0.2-1.3)
[2021-09-14 03:11] LABS: Potassium 4.8 mmol/L (3.5-5.1)
[2021-09-14 03:12] LABS: AST 36 U/L (14-36); Albumin 4.6 g/dL (3.5-5.0); Alkaline Phosphatase 56 U/L (38-126); Total Protein 7.9 g/dL (6.3-8.2)
[2021-09-14 03:16] LABS: INR 0.9 (<1.2); Partial Thromboplastin Time 25.6 sec (22.0-30.0); Prothrombin Time 10.1 sec (9.0-12.0)
--- NOTE | 2021-09-14 03:23 | ED ---
Abdominal Pain HPI - General Chief Complaint: Abdominal Pain Stated Complaint: Abdominal Pain, Vomiting Time Seen by Provider: 09/14/21 02:02 Source: patient, RN notes reviewed, old records reviewed Mode of arrival: ambulatory Limitations: no limitations - History of Present Illness Initial Comments: This is a 66-year-old female to the ER for evaluation. Patient Dese for evaluation of abdominal pain positive nausea no vomiting no fevers. No prior hi story of similar pain in the past. Symptoms are nonspecific and diffuse. Patient does have history of abdominal pain. And history of gastric sleeve. MD Complaint: abdominal pain -: hour(s) Location: periumbilical, epigastric, suprapubic Radiation: epigastric, suprapubic Migration to: periumbilical Severity: moderate Severity scale (1-10): 6 Quality: sharp Consistency: intermittent Improves With: nothing Worsens With: nothing Associated Symptoms: nausea, vomiting Treatments Prior to Arrival: other (0) - Related Data Home Medications Medication Instructions Recorded Confirmed Cetirizine HCl [Zyrtec] 30 mg PO HS 09/20/18 11/01/19 Cholecalciferol [Vitamin D3 (25 10,000 unit PO HS 09/20/18 11/01/19 Mcg = 1000 Iu)] Fexofenadine/Pseudoephedrine 1 each PO QAM 09/20/18 11/01/19 [Ange-D 12 Hour Tablet] Previous Rx's Medication Instructions Recorded EPINEPHrine (Auto Inject) [Epipen] 0.3 mg IM ONCE PRN #2 syringe 07/27/16 Cyclobenzaprine [Flexeril] 5 mg PO BID #10 tablet 11/23/20 predniSONE 50 mg PO DAILY #5 tab 11/23/20 Allergies Allergy/AdvReac Type Severity Reaction Status Date / Time naproxen sodium [From Aleve] Allergy Anaphylaxis Verified 09/14/21 02:00 Penicillins Allergy Anaphylaxis Verified 09/14/21 02:00 Sulfa (Sulfonamide Allergy Anaphylaxis Verified 09/14/21 02:00 Antibiotics) sulfamethoxazole Allergy Rash/Hives Verified 09/14/21 02:00 [From Bactrim] tramadol [From Ultram] Allergy Swelling Verified 09/14/21 02:00 trimethoprim [From Bactrim] Allergy Rash/Hives Verified 09/14/21 02:00 Review of Systems ROS Statement: Those systems with pertinent positive or pertinent negative responses have been documented in the HPI. ROS Other: All systems not noted in ROS Statement are negative. Past Medical History Past Medical History: Rheumatoid Arthritis (RA), Thyroid Disorder Additional Past Medical History / Comment(s): Heart murmur-patient has been previously worked up for this; neck pain; thyroid nodules , teeth pulled 08/2021 History of Any Multi-Drug Resistant Organisms: None Reported Past Surgical History: Bariatric Surgery, Hysterectomy Additional Past Surgical History / Comment(s): cervical CA 1988; hysterectomy 1996; bariatric surgery 2013; right leg surgery 1984; Past Anesthesia/Blood Transfusion Reactions: No Reported Reaction Past Psychological History: No Psychological Hx Reported Smoking Status: Former smoker Past Alcohol Use History: Occasional Past Drug Use History: None Reported - Past Family History Sister(s) Family Medical History: Cancer Additional Family Medical History / Comment(s): nonhodgkins lymphoma General Exam General appearance: alert, in no apparent distress Head exam: Present: atraumatic, normocephalic, normal inspection Eye exam: Present: normal appearance, PERRL, EOMI. Absent: scleral icterus, conjunctival injection, periorbital swelling ENT exam: Present: normal exam, mucous membranes moist Neck exam: Present: normal inspection. Absent: tenderness, meningismus, lymphadenopathy Respiratory exam: Present: normal lung sounds bilaterally. Absent: respiratory distress, wheezes, rales, rhonchi, stridor Cardiovascular Exam: Present: regular rate, normal rhythm, normal heart sounds. Absent: systolic murmur, diastolic murmur, rubs, gallop, clicks GI/Abdominal exam: Present: soft, normal bowel sounds. Absent: distended, tenderness, guarding, rebound, rigid Extremities exam: Present: normal inspection, full ROM, normal capillary refill. Absent: tenderness, pedal edema, joint swelling, calf tenderness Back exam: Present: normal inspection Neurological exam: Present: alert, oriented X3, CN II-XII intact Psychiatric exam: Present: normal affect, normal mood Skin exam: Present: warm, dry, intact, normal color. Absent: rash Course Vital Signs 09/14/21 01:55 Temperature 98.1 F Pulse Rate 86 Respiratory 19 Rate Blood Pressure 184/99 O2 Sat by Pulse 99 Oximetry - Reevaluation(s) Reevaluation #1: 09/14/21 Medical record is reviewed Reevaluation #2: 09/14/21 Patient symptoms are improved Reevaluation #3: 09/14/21 Patient is informed for results and questions answered Medical Decision Making - Medical Decision Making 66 female to the emergency department for evaluation. Patient presents today for evaluation of abdominal pain, nonspecific. CT and lab values are normal patient can be discharged home - Lab Data Result diagrams: 09/14/21 02:46 09/14/21 02:46 Lab Results 09/14/21 09/14/21 09/14/21 Range/Units 02:46 02:46 02:46 WBC 8.8 (3.8-10.6) k/uL RBC 4.81 (3.80-5.40) m/uL Hgb 14.6 (11.4-16.0) gm/dL Hct 44.4 (34.0-46.0) % MCV 92.3 (80.0-100.0) fL MCH 30.3 (25.0-35.0) pg MCHC 32.8 (31.0-37.0) g/dL RDW 13.5 (11.5-15.5) % Plt Count 250 (150-450) k/uL MPV 8.5 Neutrophils % 84 % Lymphocytes % 11 % Monocytes % 3 % Eosinophils % 1 % Basophils % 0 % Neutrophils # 7.4 (1.3-7.7) k/uL Lymphocytes # 1.0 (1.0-4.8) k/uL Monocytes # 0.2 (0-1.0) k/uL Eosinophils # 0.1 (0-0.7) k/uL Basophils # 0.0 (0-0.2) k/uL PT 10.1 (9.0-12.0) sec INR 0.9 (<1.2) APTT 25.6 (22.0-30.0) sec Sodium 136 L (137-145) mmol/L Potassium 4.8 (3.5-5.1) mmol/L Chloride 101 (98-107) mmol/L Carbon Dioxide 21 L (22-30) mmol/L Anion Gap 14 mmol/L BUN 11 (7-17) mg/dL Creatinine 0.48 L (0.52-1.04) mg/dL Est GFR (CKD-EPI)AfAm >90 (>60 ml/min/1.73 sqM) Est GFR (CKD-EPI)NonAf >90 (>60 ml/min/1.73 sqM) Glucose 100 H (74-99) mg/dL Plasma Lactic Acid Augustus (0.7-2.0) mmol/L Calcium 9.5 (8.4-10.2) mg/dL Total Bilirubin 0.8 (0.2-1.3) mg/dL AST 36 (14-36) U/L ALT 12 (4-34) U/L Alkaline Phosphatase 56 (38-126) U/L Total Protein 7.9 (6.3-8.2) g/dL Albumin 4.6 (3.5-5.0) g/dL Amylase 53 (30-110) U/L Lipase 94 (23-300) U/L 09/14/21 Range/Units 02:46 WBC (3.8-10.6) k/uL RBC (3.80-5.40) m/uL Hgb (11.4-16.0) gm/dL Hct (34.0-46.0) % MCV (80.0-100.0) fL MCH (25.0-35.0) pg MCHC (31.0-37.0) g/dL RDW (11.5-15.5) % Plt Count (150-450) k/uL MPV Neutrophils % % Lymphocytes % % Monocytes % % Eosinophils % % Basophils % % Neutrophils # (1.3-7.7) k/uL Lymphocytes # (1.0-4.8) k/uL Monocytes # (0-1.0) k/uL Eosinophils # (0-0.7) k/uL Basophils # (0-0.2) k/uL PT (9.0-12.0) sec INR (<1.2) APTT (22.0-30.0) sec Sodium (137-145) mmol/L Potassium (3.5-5.1) mmol/L Chloride (98-107) mmol/L Carbon Dioxide (22-30) mmol/L Anion Gap mmol/L BUN (7-17) mg/dL Creatinine (0.52-1.04) mg/dL Est GFR (CKD-EPI)AfAm (>60 ml/min/1.73 sqM) Est GFR (CKD-EPI)NonAf (>60 ml/min/1.73 sqM) Glucose (74-99) mg/dL Plasma Lactic Acid Augustus 0.8 (0.7-2.0) mmol/L Calcium (8.4-10.2) mg/dL Total Bilirubin (0.2-1.3) mg/dL AST (14-36) U/L ALT (4-34) U/L Alkaline Phosphatase (38-126) U/L Total Protein (6.3-8.2) g/dL Albumin (3.5-5.0) g/dL Amylase (30-110) U/L Lipase (23-300) U/L - Radiology Data Radiology results: report reviewed (CT abdomen and pelvis is negative for acute disease), image reviewed Disposition Clinical Impression: Abdominal pain Disposition: HOME SELF-CARE Condition: Good Instructions (If sedation given, give patient instructions): Abdominal Pain (ED) Is patient prescribed a controlled substance at d/c from ED?: No Referrals: Berna Jalloh MD [Primary Care Provider] - 1-2 days Time of Disposition: 04:35
--- NOTE | 2021-09-14 03:38 | CT ---
EXAMINATION TYPE: CT abdomen pelvis w con DATE OF EXAM: 09/14/2021 COMPARISON: 07/14/2009 HISTORY: abd pain near umbilical, dry heeving, hx of gastric sleeve in 2013, last bowel movement 2 da ys ago, hx of hysterectomy ,and cervical ca, no prior CT DLP: 1439.5 mGycm Automated exposure control for dose reduction was used. CONTRAST: Performed with IV Contrast, patient injected with 100ml mL of Isovue 300. There is mild subsegmental atelectasis at the lung bases. There is moderate hiatal hernia. There is p revious gastric bariatric surgery. Heart size is normal. No pericardial effusion. Liver spleen appear intact. There is no pancreatic mass. The bile ducts are not dilated. Gallbladder appears normal. There is no adrenal mass. Kidneys show satisfactory contrast opacification. There is no hydronephrosi s. Delayed images show normal renal excretion. There is no retroperitoneal adenopathy. Abdominal aort a is atheromatous. Bladder distends smoothly. No inguinal hernia. No free fluid in the pelvis. No pel jose mass. There are multiple sigmoid diverticula. No definite diverticulitis. No ascites or free air. No sign of a bowel obstruction. Abdominal aorta is atheromatous. The lumbar vertebrae have normal alignment. No compression fracture. Bony pelvis is intact. The hip j oints are intact. IMPRESSION: Extensive colonic diverticulosis without diverticulitis. No bowel obstruction. There is clearing of t he moderate right pleural effusion compared to old exam. There is progression of the diverticular dis ease compared to old exam. Appendix not seen.
[2021-09-14] MEDS ORDERED: ONDANSETRON 4 MG ODT STARTER PACK 2 TAB BTL PO STA (04:31)
== END 2021-09-14 04:42 | disposition home or self-care (01) ==
LOC: EC 01:50
DX: R10.9 Unspecified abdominal pain (principal); Z87.891 Personal history of nicotine dependence; Z88.0 Allergy status to penicillin; Z88.2 Allergy status to sulfonamides; Z88.8 Allergy status to other drugs, medicaments and biological substances
CPT/HCPCS: 36415; 80053; 82150; 83605; 83690; 85025; 85610; 85730; 74177; 99284; 96374; 96375; 96361; J2270; J2405; S0119; C9113; Q9967

== ENCOUNTER → 2021-11-04 | Outpatient (CLI) | payer OTHER ==
--- NOTE | 2021-11-06 18:32 | MM ---
Reason for Exam: Screening (asymptomatic). Last screening mammogram was performed 12 month(s) ago. Patient History: Menarche at age 16. First Full-Term at age 34. Late child-bearing (after 30). Hysterectomy at age 42. Postmenopausal. Endometrial cancer, age 33. 10/24/2018, High risk Core Biopsy on the right side. Paternal aunt had breast cancer. Risk Values: Paola 5 year model risk: 2.4%. NCI Lifetime model risk: 9.5%. Prior Study Comparison: 04/30/2019 Right Diagnostic Mammogram, [facility]. 10/24/2019 Bilateral Screening Mammogram, [facility]. 10/28/2020 Bilateral Screening Mammogram, [facility]. Tissue Density: The breast tissue is heterogeneously dense. This may lower the sensitivity of mammography. Findings: Analyzed By CAD. There is no suspicious group of microcalcifications or new suspicious mass in either breast. Overall Assessment: Negative, BI-RAD 1 Management: Screening Mammogram of both breasts in 1 year. A clinical breast exam by your physician is recommended on an annual basis and results should be correlated with mammographic findings. Electronically signed and approved by: Tony Gonzalez DO
== END | disposition home or self-care (01) ==
LOC: RADMAMWWP 07:18
PROVIDERS: ATTEND Family Medicine
DX: Z12.31 Encounter for screening mammogram for malignant neoplasm of breast (principal); Z78.0 Asymptomatic menopausal state; Z80.3 Family history of malignant neoplasm of breast
CPT/HCPCS: 77067

== ENCOUNTER → 2022-11-10 | Outpatient (CLI) | payer OTHER ==
--- NOTE | 2022-11-10 12:15 | CT ---
EXAMINATION TYPE: CT left knee - [facility] Protocol DATE OF EXAM: 11/10/2022 COMPARISON: None HISTORY: [facility] protocol lt knee CT DLP: 748.30 mGycm FINDINGS: Mild bilateral hip arthropathy. There is moderate to severe hypertrophic arthropathy of the knee joint space. Multiple soft tissue ossifications are seen in Hoffa's fat pad adjacent soft tissue attenuation of u ncertain etiology may represent calcified. Subcutaneous varicosities. Small suprapatellar bursal fluid collection. No acute fracture or dislocation. IMPRESSION: 1. Moderate to severe osteoarthritis. The partially calcified infrapatellar soft tissue nodule. Corre late clinically.
== END | disposition home or self-care (01) ==
LOC: RADCTMAIN 10:20
PROVIDERS: ATTEND Orthopaedic Surgery
DX: M17.0 Bilateral primary osteoarthritis of knee (principal); M21.161 Varus deformity, not elsewhere classified, right knee; M21.162 Varus deformity, not elsewhere classified, left knee

== ENCOUNTER → 2022-11-10 | Outpatient (CLI) | payer OTHER ==
[2022-11-10 12:15] LABS: INR 0.9 (<1.2); Partial Thromboplastin Time 25.6 sec (22.0-30.0); Prothrombin Time 9.9 sec (9.0-12.0)
[2022-11-10 16:19] LABS: Appearance,Urine Clear (Clear); Bilirubin,Urine Negative (Negative); Blood,Urine Small (Negative); Color,Urine Yellow (Yellow); Ketones,Urine Negative (Negative); Nitrite,Urine Negative (Negative); PH, Urine 6.5; Urobilinogen,Urine 0.2 E.U./DL
[2022-11-10 16:25] LABS: Bacteria,Urine None Seen (None Seen)
[2022-11-10 16:32] LABS: Basophils # (A) 0.06 X 10*3/uL (0.00-0.10); Basophils % (A) 0.8 %; Eosinophils # (A) 0.35 X 10*3/uL (0.04-0.35); Eosinophils % (A) 4.6 %; HCT 45.1 % (37.2-46.3); HGB 14.3 d/dL (12.0-15.0); Lymphocytes # (A) 2.41 X 10*3/uL (0.90-5.00); Lymphocytes % (A) 31.8 %; MCH 29.4 pg (27.0-32.0); MCHC 31.7 d/dL (32.0-37.0); MCV 92.8 FL (80.0-97.0); Mean Platelet Volume 10.9 FL (9.5-12.2); Monocytes # (A) 0.58 X 10*3/uL (0.20-1.00); Monocytes % (A) 7.7 %; NRBC Per 100 WBC 0 X 10*3/uL (0.00-0.01); Neutrophils # (A) 4.16 X 10*3/uL (1.80-7.70); Neutrophils % (A) 54.8 %; Platelet Count 276 X 10*3/uL (140-440); RBC 4.86 X 10*6/uL (4.10-5.20); RDW 13.4 % (11.5-14.5); WBC 7.58 X 10*3/uL (4.50-10.00)
== END | disposition home or self-care (01) ==
LOC: LABPAT 09:48
PROVIDERS: ATTEND Orthopaedic Surgery
DX: Z01.812 Encounter for preprocedural laboratory examination (principal); M17.12 Unilateral primary osteoarthritis, left knee
CPT/HCPCS: 36415; 81001; 85025; 85610; 85730; 87070

== ENCOUNTER → 2022-11-10 | Outpatient (CLI) | payer OTHER ==
--- NOTE | 2022-11-11 09:48 | MM ---
Reason for Exam: Screening (asymptomatic). Last screening mammogram was performed 12 month(s) ago. Patient History: Menarche at age 16. First Full-Term at age 34. Late child-bearing (after 30). Hysterectomy at age 42. Postmenopausal. Endometrial cancer, age 33. 10/24/2018, High risk Core Biopsy on the right side. Paternal aunt had breast cancer, age 55. Risk Values: Paola 5 year model risk: 2.5%. NCI Lifetime model risk: 9.2%. Prior Study Comparison: 10/24/2019 Bilateral Screening Mammogram, [facility]. 10/28/2020 Bilateral Screening Mammogram, [facility]. 11/04/2021 Bilateral MG screening mammo w CAD, [facility]. Tissue Density: The breast tissue is heterogeneously dense. This may lower the sensitivity of mammography. Findings: Analyzed By CAD. There is no suspicious group of microcalcifications or new suspicious mass in either breast. Chronic nodularity in the left breast. Punctate benign calcifications. Overall Assessment: Benign, BI-RAD 2 Management: Screening Mammogram of both breasts in 1 year. . Patient should continue monthly self-breast exams. A clinical breast exam by your physician is recommended on an annual basis. This exam should not preclude additional follow-up of suspicious palpable abnormalities. Note on Paola scores and lifetime risk: 1. A Paola score greater than 3% is considered moderate risk. If this is the case, consider specialist referral to assess eligibility for a risk reducing agent. 2. If overall lifetime risk for the development of breast cancer is 20% or higher, the patient may qualify for future screening with alternating mammogram and breast MRI. Electronically signed and approved by: Karri Mercado M.D. Radiologis
== END | disposition home or self-care (01) ==
LOC: RADMAMWWP 09:45
PROVIDERS: ATTEND Family Medicine
DX: Z12.31 Encounter for screening mammogram for malignant neoplasm of breast (principal); Z78.0 Asymptomatic menopausal state; Z80.3 Family history of malignant neoplasm of breast
CPT/HCPCS: 77063; 77067

== ENCOUNTER → 2023-01-19 | Outpatient (CLI) | payer OTHER ==
--- NOTE | 2023-01-20 09:28 | CT ---
EXAMINATION TYPE: CT right knee - [facility] Protocol CT DLP: 1094 mGycm, Automated exposure control for dose reduction was used. DATE OF EXAM: 01/19/2023 1:04 PM COMPARISON: Extremity radiograph same day. CLINICAL INDICATION:Female, 67 years old with history of M25.561 PAIN IN RIGHT KNEE; [facility], right [facility] knee TECHNIQUE: Axial images were obtained of the CT right knee - [facility] Protocol, Additional coronal and sa gittal reformatted images and soft tissue and bone window were obtained for review. 3-D reconstructio n was created on a separate workstation. Contrast used: mL of , (None if empty) Oral contrast used: (None if empty) FINDINGS: The visualized portion of the hips demonstrate mild osteoarthrosis changes with osteophyte formation of the acetabulum. No acute intrapelvic process. The bony structures of the pelvis are inta ct. The visualized knee demonstrates osteophyte formation of the tibial plateau the patella and femoral c ondyles. There is joint space narrowing and subchondral sclerosis. No evidence of fracture. Visualized ankle demonstrates multifocal osteoarthrosis changes with osteophyte formation and mild cheryl int space narrowing. No evidence of fractures. IMPRESSION: End-stage osteoarthrosis changes of the right knee.
== END | disposition home or self-care (01) ==
LOC: RADCTMAIN 12:05
PROVIDERS: ATTEND Orthopaedic Surgery
DX: M17.11 Unilateral primary osteoarthritis, right knee (principal); M21.161 Varus deformity, not elsewhere classified, right knee; Z96.652 Presence of left artificial knee joint; Z48.89 Encounter for other specified surgical aftercare

== ENCOUNTER → 2023-02-19 | Outpatient (CLI) | payer OTHER ==
[2023-02-19 09:40] LABS: INR 2.6 (<1.2); Partial Thromboplastin Time 34.9 sec (22.0-30.0)
[2023-02-19 13:39] LABS: HCT 40.9 % (37.2-46.3); HGB 12.7 g/dL (12.0-15.0); MCH 28.9 pg (27.0-32.0); MCHC 31.1 g/dL (32.0-37.0); Mean Platelet Volume 10.7 FL (9.5-12.2); NRBC Per 100 WBC 0 X 10*3/uL (0.00-0.01); Platelet Count 243 X 10*3/uL (140-440); RDW 14.9 % (11.5-14.5); WBC 7.18 X 10*3/uL (4.50-10.00)
[2023-02-19 13:46] LABS: ALT 9 U/L (8-44); AST 18 U/L (13-35); Albumin 3.9 g/dL (3.8-4.9); Alkaline Phosphatase 73 U/L (41-126); BUN/Creat Ratio 27.29 Ratio (12.00-20.00); Blood Urea Nitrogen 19.1 mg/dL (9.0-27.0); Calcium 9.4 mg/dL (8.7-10.3); Carbon Dioxide 29.9 mmol/L (21.6-31.8); Chloride 103 mmol/L (96-109); Globulin 2.6 g/dL (1.6-3.3); Glucose 87 mg/dL (70-110); Potassium 4.3 mmol/L (3.5-5.5); Sodium 141 mmol/L (135-145); Total Bilirubin 0.3 mg/dL (0.3-1.2); Total Protein 6.5 g/dL (6.2-8.2)
[2023-02-19 17:00] LABS: Appearance,Urine Turbid (Clear); Bilirubin,Urine Negative (Negative); Blood,Urine Small (Negative); Color,Urine Yellow (Yellow); Ketones,Urine Negative (Negative); Nitrite,Urine Negative (Negative); PH, Urine 7.5; Specific Gravity,Urine 1.018 (1.001-1.030); Urobilinogen,Urine 0.2 E.U./DL
[2023-02-19 17:06] LABS: Bacteria,Urine None Seen (None Seen)
== END | disposition home or self-care (01) ==
LOC: LABPAT 08:23
PROVIDERS: ATTEND Orthopaedic Surgery
DX: Z01.812 Encounter for preprocedural laboratory examination (principal); M17.11 Unilateral primary osteoarthritis, right knee
CPT/HCPCS: 80053; 81001; 85027; 85610; 85730; 87070

== ENCOUNTER → 2023-03-12 | Outpatient (CLI) | payer OTHER ==
[2023-03-12 10:01] LABS: INR 0.9 (<1.2); Prothrombin Time 9.7 sec (10.0-12.5)
[2023-03-12 10:06] LABS: Partial Thromboplastin Time 21.1 sec (22.0-30.0)
[2023-03-12 16:06] LABS: HGB 14.1 g/dL (12.0-15.0); MCH 28.5 pg (27.0-32.0); MCV 94.9 FL (80.0-97.0); Mean Platelet Volume 11.7 FL (9.5-12.2); NRBC Per 100 WBC 0 X 10*3/uL (0.00-0.01); Platelet Count 170 X 10*3/uL (140-440); RBC 4.95 X 10*6/uL (4.10-5.20)
[2023-03-12 17:38] LABS: ALT 9 U/L (8-44); AST 21 U/L (13-35); Albumin/Globulin Ratio 1.43 Ratio (1.60-3.17); Alkaline Phosphatase 68 U/L (41-126); BUN/Creat Ratio 21.29 Ratio (12.00-20.00); Blood Urea Nitrogen 14.9 mg/dL (9.0-27.0); Calcium 9.3 mg/dL (8.7-10.3); Carbon Dioxide 24.7 mmol/L (21.6-31.8); Chloride 104 mmol/L (96-109); Globulin 2.8 g/dL (1.6-3.3); Glucose 79 mg/dL (70-110); Potassium 4.4 mmol/L (3.5-5.5); Sodium 139 mmol/L (135-145); Total Bilirubin 0.4 mg/dL (0.3-1.2); Total Protein 6.8 g/dL (6.2-8.2)
== END | disposition home or self-care (01) ==
LOC: LABPAT 08:34
PROVIDERS: ATTEND Orthopaedic Surgery
DX: Z01.812 Encounter for preprocedural laboratory examination (principal); M17.11 Unilateral primary osteoarthritis, right knee; Z22.322 Carrier or suspected carrier of Methicillin resistant Staphylococcus aureus
CPT/HCPCS: 80053; 85027; 85610; 85730

== ENCOUNTER 2023-04-04 10:21 | Day surgery (SDC) | payer OTHER ==
[~2023-04-04 10:21] MED LIST changes: -HEPARIN SODIUM,PORCINE 5,000 UNIT/ML 1 ML VIAL SQ ONE; -HYDROmorphone 0.5 MG/0.5 ML SYRINGE IVP PRN; -LACTATED RINGERS 1,000 ML IV SCH; +LIDOCAINE 1% (10MG/ML) FOR IV START INTRADERMA PRN; -Pre Op ABX Message 1 EACH MISC MISCELLANE ONE; +TRANEXAMIC 1,000 MG/100ML-NACL 1,000 MG in SALINE 1 100ML.BAG IVPB PRN
[2023-04-04] MEDS: LACTATED RINGERS 1,000 ML IV ONE ×2 (10:55→13:54)
[2023-04-04] MEDS: ACETAMINOPHEN TAB 500 MG TAB PO PRN (11:05)
[2023-04-04] MEDS ORDERED: SODIUM CHLORIDE 0.9% NEBULIZ 3 ML INHALATION ONE (11:10)
[2023-04-04] MEDS: MIDAZOLAM 2 MG/2 ML VIAL IVP ONE (11:15)
[2023-04-04 11:18] LABS: Glucose,Whole Blood 77 mg/dL (70-110)
[2023-04-04] MEDS: ONDANSETRON 4 MG/2 ML VIAL IVP PRN (11:47)
[2023-04-04] MEDS ORDERED: TRANEXAMIC 1,000 MG/100ML-NACL PREMIX BAG ONE (12:30)
[2023-04-04] MEDS ORDERED: MIDAZOLAM 2 MG/2 ML VIAL ONE (12:30)
[2023-04-04] MEDS ORDERED: PROPOFOL 10 MG/ML 20 ML VIAL IV ONE (12:30)
[2023-04-04] MEDS ORDERED: fentaNYL (PF) 50 MCG/ML 2 ML AMP ONE (12:30)
[2023-04-04] MEDS ORDERED: ROPIVACAINE 5 MG/ML 30 ML VIAL ONE (12:30)
[2023-04-04] MEDS ORDERED: KETAMINE HCL IN 0.9 % NACL 50 MG/5 ML SYRINGE ONE (12:30)
[2023-04-04] MEDS ORDERED: SODIUM CHLORIDE 0.9% (PF) 10 ML VIAL ONE (12:30)
[2023-04-04] MEDS: CLINDAMYCIN 900 MG in DEXTROSE 5% IN WATER 50 ML IVPB PRN (13:06)
--- NOTE | 2023-04-04 14:29 | P.OP ---
Date of Procedure: 04/04/23 Procedure(s) Performed: PREOPERATIVE DIAGNOSIS: Right knee severe osteoarthritis genu varum POSTOPERATIVE DIAGNOSIS: Right knee severe osteoarthritis with genu varum OPERATION: Right knee cemented total replacement arthroplasty, robotic-assisted using Gregorio system from [employer]. ANESTHESIA: Regional with IPAC and ACB, General ESTIMATED BLOOD LOSS: 100 ml. INTEGRATED PEST MANAGEMENT TECHNICIAN: Aminata Myers PA-C (assistance with: patient positioning, retraction, exposure, hemostasis, leg positioning, implantation, irrigation, closure, dressing) COMPLICATIONS: None apparent. COMPONENTS IMPLANTED: Triathlon components, see implant sheet for exact sizes INDICATIONS: Pina is a 68 year old female with a history of right knee osteoarthritis. The patient's knee is end-stage, and conservative management has failed. The operation of knee replacement has been discussed at length in the office, as well as potential risks and complications. These are inclusive of, but not limited to: bleeding, infection, scarring, discomfort, blood vessel and nerve damage, need for further surgery, failure to relieve symptoms, persistence, recurrence, or worsening of problems, loosening, dislocation, wear, blood clot, pulmonary embolism, , gait dysfunction, stiffness, and other risks as discussed in the office. The patient elects to proceed and the consent form has been signed. PROCEDURE: The patient was taken to the operating room and positioned on the operating room table in the supine position. Anesthesia was initiated. Care was taken to make sure that all pressure points were adequately padded. The operative lower extremity was prepped and draped in the usual aseptic fashion using ChloraPrep. Ioban drape was used for the case and the patient received intravenous antibiotics within one hour of the incision. A pneumotourniquet and leg garcia were used for the case. The limb was exsanguinated with an Esmarch bandage and the tourniquet was inflated to 275 mmHg. Time-out was called confirming the patient's identity, side, procedure and administration of antibiotics and tranexamic acid. The incision was then created midline directly over the knee, carried down through skin and into the subcutaneous tissues and down to fascia. Full thickness subcutaneous medial flap was developed. Medial parapatellar arthrotomy was performed and the interior of the knee was inspected. There was end-stage osteoarthritis of the knee with a [mild to moderate] genu varum type deformity. The fat pad was excised and proximal medial release on the tibia was completed using meticulous dissection and a curved osteotome. Note was made of significant attrition of the anterior and significant degenerative appearance of the cruciate ligaments. The anterior cruciate ligament as well as the posterior cruciate ligament were taken down. The exposure was excellent. The knee was flexed 90 degrees and the patella was everted. 4 mm pins were placed in the medial epicondylectomy the femur and an optical array was attached for the Gregorio system. Similarly, another array was placed within the wound using 4 mm pins at the level of the tibial tubercle. The arrays were tightened and confirmed to be in good position based on the position of the camera. Hip center was taken, followed by double checking the femoral and tibial checkpoints prior to registering the femur and tibia respectively. Once an accurate register was accomplished, spurs were removed around the knee and any necessary soft tissue releases were performed. The knee was taken through range of motion with stress medially and laterally in extension. Once these spatial measurements were taken, stress was performed using curved osteotomes in the medial and lateral compartments with the knee at 90 of flexion. Pre-resection ligament balancing was performed. The extension and flexion spaces were then balanced according to these spatial measurements, by rotating and translating the planned femoral and tibial components in the coronal, sagittal, and axial planes until a satisfactory balance was obtained. Once the gap balancing adjustments were performed on the computer, the robotic arm on the Gregorio robot was used to create the tibial and femoral cuts. These cuts were performed without incident, and the cut fragments were then removed. Surfaces were further smoothed peripherally if necessary. Medial and lateral menisci were removed at this time, then the posterior capsule was cauterized and any residual loose soft tissue within the lateral posterior and medial aspects of the interior of the knee were removed. Patellar resurfacing was performed using a reamer. The size of the required patellar component was estimated and the patellar surface was then reamed down to a residual thickness which would recreate the gakona thickness with the component. The exact placement of the patellar component was adjusted for position based on preoperative x-rays and intraoperative findings. Trial components were then placed and the tibial component was allowed to self center, with care not to allow any significant internal rotation of the component. The position of this tibial trial was then marked and confirmed to be very close to the standard landmark of the junction between the middle and medial 1/3 of the tibial tubercle. Confirmation of satisfactory soft tissue balance was confirmed based on the readings of the extension and flexion spaces and by kinematic testing of the knee manually. The latter showed excellent stability both medially and laterally, excellent alignment in the coronal plane, as well as excellent stability anteriorly and posteriorly with regard to tibial translation. There was no evidence of mid flexion instability. Trial components were removed and the cut surfaces of the bone were pulse lavaged thoroughly and dried. We planned for a CS liner and the tibia was prepared for a standard stemmed tibial Triathlon component. Cement was mixed on the back table and applied to the final components. Cement was then applied to the tibial surface and pressurized into the surface using finger pressurization technique. The tibial component was then applied and excess cement was removed after it was impacted securely and noted to be flush with the cut surface. In similar fashion, the cement was applied to the cut femoral surface, pressurized in using finger pressurization and the component was impacted into place. Excess cement was removed. The polyethylene spacer was then implanted and locked into position. The patellar component was then applied in similar technique and a patellar clamp was used to hold the patella in place as the cement hardened. Once the cement had fully hardened, the knee was reinspected. Any other cement extrusion was removed and final kinematic testing showed range of motion from 0 to 130 degrees with excellent stability, both medially and laterally and appropriate alignment of the leg. Patellar tracking was excellent. The knee was then thoroughly pulse lavaged with normal saline. The tourniquet was deflated and hemostasis was obtained with electrocautery and IV tranexamic acid, 1 g given at the start of the operation and 1 g at the start of closure. Closure was with interrupted 0 Vicryl sutures in the fascia/capsule and supplemented with #2 Quill, 2-0 Vicryl suture was used for the subcutaneous tissues and 4-0 Quill for the skin. Cyanoacrylate and Optefoam were then applied. A lightly compressive dressing was applied using Webril and an Kennedy wrap. The patient was then transferred to stretcher and taken to the recovery room in stable condition. Sponge and needle counts were correct.
[2023-04-04] MEDS ORDERED: MAGNESIUM HYDROXIDE 2,400 MG/30 ML CUP PO PRN (14:43)
[2023-04-04] MEDS ORDERED: NA PHOS,M-B/NA PHOS,DI-BA 133 ML ENEMA RECTAL PRN (14:43)
[2023-04-04] MEDS ORDERED: HYDROmorphone 0.5 MG/0.5 ML SYRINGE IVP PRN ×2 (14:43)
[2023-04-04] MEDS ORDERED: bisacodyL 10 MG SUPP RECTAL PRN (14:43)
[2023-04-04] MEDS ORDERED: NALOXONE 0.4 MG/ML 1 ML VIAL IV PRN (14:43)
[2023-04-04] MEDS: HYDROmorphone 0.5 MG/0.5 ML SYRINGE IVP PRN ×2 (15:11→18:01)
[2023-04-04] MEDS: ROPIVACAINE 0.75% 1,100 MG, SODIUM CHLORIDE 0.9% 500 ML 403 ML, EMPTY PAIN BALL 1 EACH MISCELLANE PRN (15:30)
--- NOTE | 2023-04-04 15:49 | XR ---
EXAMINATION TYPE: XR knee limited RT DATE OF EXAM: 04/04/2023 3:24 PM CLINICAL INDICATION:Female, 68 years old with history of Evaluation for Postop abnormality and alignm ent; [facility] COMPARISON: None. TECHNIQUE: XR knee limited RT; examined in Frontal, lateral and oblique projections. FINDINGS: Status post total knee arthroplasty changes with hardware in appropriate alignment and inta ct. No evidence of fracture. Subcutaneous lucencies and lucencies within the joint consistent with uribe rgical changes. IMPRESSION: Status post total knee arthroplasty changes with hardware intact and appropriate alignment. No fractu res identified.
[2023-04-04] MEDS: LACTATED RINGERS 1,000 ML IV SCH ×2 (16:00→16:01)
--- NOTE | 2023-04-04 16:13 | P.ANPRN ---
Procedure Note - Anesthesia - Nerve Block Performed Right Adductor Canal Infusion Time Out Performed: Yes (1113) Date of Procedure: 04/04/23 Location of Patient: PreOp Indication: Acute Post-Operative Pain, Dx/Pain Location (Right knee), Requested by Surgeon Specifically requested for management of pain by DrRichard: Gilbert Heard Sedation Type: Sedate with meaningful contact maintained Preparation: Sterile Prep, Sterile Dressing Position: Supine Catheter: Indwelling Needle Types: Pajunk Needle Gauge: 18 Ultrasound used to visualize needle placement: Yes Ultrasound used to observe medication spread: Yes Injectate: 0.5% Ropivacaine (see comment for volume) (20 mL +10 mL of normal saline) Blood Aspirated: No Pain Paresthesia on Injection Noted: No Resistance on Injection: Normal Image Stored and Saved: Yes Events: Uneventful and Well Tolerated Right iPack Single Time Out Performed: Yes Date of Procedure: 04/04/23 Location of Patient: PreOp Indication: Acute Post-Operative Pain, Dx/Pain Location (Right knee pain), Requested by Surgeon Specifically requested for management of pain by Dr.: Gilbert Heard Sedation Type: Sedate with meaningful contact maintained Position: Left Lateral Catheter: None Needle Types: Pajunk Needle Gauge: 21 Ultrasound used to visualize needle placement: Yes Ultrasound used to observe medication spread: Yes Injectate: 0.5% Ropivacaine (see comment for volume) (20 mL +10 mL of normal saline) Blood Aspirated: No Pain Paresthesia on Injection Noted: No Resistance on Injection: Normal Image Stored and Saved: Yes Events: Uneventful and Well Tolerated
[2023-04-04] MEDS ORDERED: STEROID INHALATION PRN (18:42)
[2023-04-04] MEDS ORDERED: ALBUTEROL NEBULIZED 2.5 MG/3 ML INHALATION PRN (18:42)
[2023-04-04] MEDS: [UNRECOGNIZED DRUG - OTHER] PO SCH (20:36)
[2023-04-04] MEDS: FEXOFENADINE PO SCH (20:36)
[2023-04-04] MEDS: PSEUDOEPHEDRINE PO SCH (20:36)
[2023-04-04] MEDS: ASPIRIN 81 MG PO SCH (20:40)
[2023-04-04] MEDS: DULoxetine HCL 30 MG CAPSULE.DR PO SCH (20:40)
[2023-04-04] MEDS: ATORVASTATIN 20 MG TAB PO SCH (20:40)
[2023-04-04] MEDS: LORATADINE 10 MG TAB PO SCH (20:40)
[2023-04-04] MEDS: LOSARTAN 25 MG TAB PO SCH (20:40)
[2023-04-04] MEDS: MAGNESIUM OXIDE 400 MG TAB PO SCH (20:40)
[2023-04-04] MEDS: SENNOSIDES-DOCUSATE SODIUM 1 EACH TAB PO SCH (20:40)
[2023-04-04] MEDS: CHOLECALCIFEROL 125 MCG (5000 IU) TABLET PO SCH (20:40)
[2023-04-04] MEDS ORDERED: TEMAZEPAM 15 MG CAP PO PRN (22:00)
[2023-04-04] MEDS: HYDROcodone/APAP 5-325MG 1 EACH TAB PO PRN (22:26)
[2023-04-05] MEDS: ONDANSETRON 4 MG/2 ML VIAL IVP PRN (02:20)
[2023-04-05] MEDS: HYDROcodone/APAP 5-325MG 1 EACH TAB PO PRN (06:49)
--- NOTE | 2023-04-05 10:00 | P.PN ---
Progress Note - Text Progress Note Date: 04/05/23 Postoperative day # 1 status post total knee arthroplasty, on adductor canal perineural catheter placed for postoperative analgesia. Ropivacaine 0.2% 8 mL per hour through ON-Q pump continuous infusion. Pain is well controlled. On visual analog scale 3/10 Patient is taking PRN oral pain medications. Catheter site: Looks Ok. There is no erythema or tenderness. Continue with the current pain management plan and will follow.
[2023-04-05] MEDS: hydroCHLOROthiazide 12.5 MG CAP PO SCH (10:50)
[2023-04-05] MEDS: MULTIVITAMINS, THERA 1 EACH TAB PO SCH (10:50)
[2023-04-05] MEDS: MELOXICAM 7.5 MG TAB PO SCH (10:51)
[2023-04-05 11:29] LABS: Basophils # (A) 0.02 X 10*3/uL (0.00-0.10); Basophils % (A) 0.2 %; Eosinophils # (A) 0.02 X 10*3/uL (0.04-0.35); Eosinophils % (A) 0.2 %; HCT 39.3 % (37.2-46.3); HGB 12.3 g/dL (12.0-15.0); Lymphocytes % (A) 8.3 %; MCH 28.9 pg (27.0-32.0); MCHC 31.3 g/dL (32.0-37.0); MCV 92.5 FL (80.0-97.0); Mean Platelet Volume 10.8 FL (9.5-12.2); Monocytes # (A) 0.71 X 10*3/uL (0.20-1.00); Monocytes % (A) 7.3 %; NRBC Per 100 WBC 0 X 10*3/uL (0.00-0.01); Neutrophils # (A) 8.09 X 10*3/uL (1.80-7.70); Neutrophils % (A) 83.7 %; Platelet Count 223 X 10*3/uL (140-440); RBC 4.25 X 10*6/uL (4.10-5.20); RDW 14.5 % (11.5-14.5); WBC 9.67 X 10*3/uL (4.50-10.00)
[2023-04-05 11:30] LABS: ALT 8 U/L (8-44); AST 14 U/L (13-35); Albumin 3.6 g/dL (3.8-4.9); Alkaline Phosphatase 62 U/L (41-126); Blood Urea Nitrogen 11.1 mg/dL (9.0-27.0); Carbon Dioxide 26.8 mmol/L (21.6-31.8); Chloride 96 mmol/L (96-109); Globulin 2.4 g/dL (1.6-3.3); Glucose 151 mg/dL (70-110); Potassium 4.4 mmol/L (3.5-5.5); Sodium 133 mmol/L (135-145); Total Bilirubin 0.4 mg/dL (0.3-1.2)
--- NOTE | 2023-04-05 14:01 | P.PN ---
Subjective Progress Note Date: 04/05/23 This is a 68-year-old fe male who is status post right total knee arthroplasty. This is postoperative day #1 and patient is seen and evaluated at bedside today. Patient states that she was in too much pain to practice stairs with physical therapy. Patient states that she has been able to walk around her room, but the right knee is very sore. Patient denies any fever/chills, chest pain, shortness breath, abdominal pain, numbness, weakness or tingling. Objective - Vital Signs Vital signs: Vital Signs Temp 98 F 04/05/23 07:50 Pulse 82 04/05/23 07:50 Resp 18 04/05/23 07:50 BP 119/78 04/05/23 07:50 Pulse Ox 97 04/05/23 07:50 FiO2 Intake & Output 04/04/23 04/05/23 04/05/23 18:59 06:59 18:59 Intake Total 1956 1250 890 Output Total 350 375 Balance 1606 875 890 Weight 104.1 kg Intake: IV 1956 Intake, IV Titration 1250 800 Amount Lactated Ringers 1,000 ml 1200 800 @ 100 mls/hr IV .Q10H ZULEIMA Rx#:[id number] ceFAZolin 2 gm In Sodium 50 Chloride 0.9% 50 ml @ 100 mls/hr IVPB Q8H ZULEIMA Rx#: [id number] Oral 90 Output: Urine 250 375 Estimated Blood Loss 100 Other: Voiding Method Bedside Commode # Voids 1 - Exam Vital signs are stable. Patient is in no acute distress and is alert and oriented 3. Calf is soft and nontender to palpation. Dressing is clean, dry, and intact. Patient has full foot and ankle motion without pain or difficulty. Sensation intact. Neurovascular status and circulatory status are intact. - Labs CBC & Chem 7: 04/05/23 05:41 04/05/23 05:41 Labs: Abnormal Lab Results - Last 24 Hours (Table) 04/05/23 04/05/23 Range/Units 05:41 05:41 MCHC 31.3 L (32.0-37.0) g/dL Neutrophils # 8.09 H (1.80-7.70) X 10*3/uL Lymphocytes # 0.80 L (0.90-5.00) X 10*3/uL Eosinophils # 0.02 L (0.04-0.35) X 10*3/uL Sodium 133 L (135-145) mmol/L Glucose 151 H (70-110) mg/dL Total Protein 6.0 L (6.2-8.2) g/dL Albumin 3.6 L (3.8-4.9) g/dL Albumin/Globulin Ratio 1.50 L (1.60-3.17) Ratio Assessment and Plan (1) S/P total knee arthroplasty Current Visit: Yes Status: Acute Code(s): Z96.659 - PRESENCE OF UNSPECIFIED ARTIFICIAL KNEE JOINT SNOMED Code(s): 1929450918445 (2) Osteoarthritis of right knee Current Visit: Yes Status: Acute Code(s): M17.11 - UNILATERAL PRIMARY OSTEOARTHRITIS, RIGHT KNEE SNOMED Code(s): 545682062254706 Plan: #1 Continue with routine postoperative care and pain control, leave dressing in place for 7 days. #2 Anticoagulation with aspirin. #3 Physical therapy today. #4 Appreciate input from internal medicine. #5 Anticipate discharge home with home care tomorrow.
--- NOTE | 2023-04-05 17:19 | P.CONS ---
History of Present Illness - Reason for Consult Consult date: 04/04/23 - History of Present Illness Pina Hwang, is a 68-year-old female patient of Dr. Jalloh, who was admitted to [facility] by Dr. Heard, and underwent right total knee arthroplasty on 04/04/2023, medical consultation was requested for management while hospitalized. Patient has a known history of hypertension, hyperlipidemia, osteoarthritis, valvular heart disease, history of rheumatoid arthritis and history of fibromyalgia. On review of systems patient is alert and oriented 3 in no apparent distress there is no fever or chills no headache or dizziness no chest pain no shortness of breath no cough no nausea or vomiting no abdominal pain no diarrhea no blood in the stools burning with urination no frequency or urgency and no hematuria. There is no weakness or numbness in any of the extremities, no change in vision speech or gait. Past Medical History Past Medical History: Cancer, Hyperlipidemia, Hypertension, Pneumonia, Rheumatoid Arthritis (RA), Thyroid Disorder Additional Past Medical History / Comment(s): Heart murmur, thyroid nodules, hx cervical cancer. Recent hx of bronchitis tx with abx,steroid and inhaler . cymbalta use for back pain. to see Dr Shi for transient elevation in coags History of Any Multi-Drug Resistant Organisms: None Reported Past Surgical History: Bariatric Surgery, Breast Surgery, Hysterectomy, Joint Replacement, Orthopedic Surgery Additional Past Surgical History / Comment(s): right leg surgery , left knee surgery 11/2022. milk duct removed, Past Anesthesia/Blood Transfusion Reactions: Postoperative Nausea & Vomiting (PONV) Additional Past Anesthesia/Blood Transfusion Reaction / Comm: when she had "twilight" she stopped breathing and needed to be intubated, last surgery fine with twilight. Past Psychological History: No Psychological Hx Reported Smoking Status: Former smoker Past Alcohol Use History: Occasional Additional Past Alcohol Use History / Comment(s): started smoking at age 18 (1972), stopped smoking at the age of 53 (2007) Past Drug Use History: None Reported - Past Family History Sister(s) Family Medical History: Cancer Additional Family Medical History / Comment(s): nonhodgkins lymphoma Father Additional Family Medical History / Comment(s): "heart and abdominal aneurysms" Medications and Allergies Home Medications Medication Instructions Recorded Confirmed Type EPINEPHrine (Auto Inject) [Epipen] 0.3 mg IM ONCE PRN #2 syringe 07/27/16 03/29/23 Rx Cetirizine HCl [Zyrtec] 30 mg PO HS 09/20/18 04/04/23 History Cholecalciferol [Vitamin D3 (25 5,000 unit PO BID 09/20/18 03/29/23 History Mcg = 1000 Iu)] Fexofenadine/Pseudoephedrine 1 each PO QAM 09/20/18 04/04/23 History [Ange-D 12 Hour Tablet] DULoxetine HCL [Cymbalta] 30 mg PO BID 11/16/22 04/04/23 History Losartan [Cozaar] 25 mg PO HS 11/16/22 04/04/23 History Magnesium Carb,Citrate,Oxide 1,000 mg PO HS 11/16/22 03/29/23 History [Magnesium Complex] Multivitamins, Thera [Multivitamin 1 tab PO DAILY 11/16/22 03/29/23 History (formulary)] Rosuvastatin [Crestor] 10 mg PO HS 11/16/22 04/04/23 History hydroCHLOROthiazide 12.5 mg PO DAILY 11/16/22 04/04/23 History Celecoxib [CeleBREX] 200 mg PO DAILY 02/23/23 03/29/23 History Unk Albuterol Inhaler 1 puff INHALATION DIRECTED PRN 02/23/23 04/04/23 History Unk Steroid Inhaler 1 puff INHALATION DIRECTED PRN 02/23/23 04/04/23 History Aspirin [Adult Low Dose Aspirin EC] 81 mg PO BID #1 tab 04/04/23 Rx HYDROcodone/APAP 7.5-325MG [[place] 1 - 2 tab PO Q6HR PRN #32 tab 04/04/23 Rx 7.5-325] Ondansetron Odt [Zofran Odt] 4 mg PO Q8HR PRN #14 tab 04/04/23 Rx Sennosides-Docusate Sodium 1 tab PO BID #60 tablet 04/04/23 Rx [Senokot-S] Allergies Allergy/AdvReac Type Severity Reaction Status Date / Time ibuprofen Allergy Anaphylaxis Verified 04/04/23 10:57 naproxen sodium [From Aleve] Allergy Anaphylaxis Verified 04/04/23 10:57 Penicillins Allergy Anaphylaxis Verified 04/04/23 10:57 Sulfa (Sulfonamide Allergy Anaphylaxis Verified 04/04/23 10:57 Antibiotics) sulfamethoxazole Allergy Anaphylaxis Verified 04/04/23 10:57 [From Bactrim] trimethoprim [From Bactrim] Allergy Anaphylaxis Verified 04/04/23 10:57 tramadol [From Ultram] AdvReac Rash/Hives Verified 04/04/23 10:57 Physical Exam Vitals: Vital Signs Temp Pulse Resp BP BP Pulse Ox 04/04/23 17:07 97.4 F L 70 20 151/85 99 04/04/23 16:40 68 16 115/66 100 04/04/23 16:25 69 18 128/63 95 04/04/23 16:10 67 16 119/61 100 04/04/23 15:55 63 16 120/53 100 04/04/23 15:40 63 16 105/56 100 04/04/23 15:25 71 16 127/59 95 04/04/23 15:10 71 16 106/68 97 04/04/23 14:55 77 16 117/73 95 04/04/23 14:39 81 16 118/52 100 04/04/23 11:40 69 16 166/75 100 04/04/23 10:55 98.1 F 70 16 166/77 97 Intake and Output 04/04/23 04/04/23 04/04/23 06:59 14:59 22:59 Intake Total 1955 Output Total 100 Balance 1855 Intake: IV 1955 Output: Estimated Blood Loss 100 Other: Weight 104.1 kg 104.1 kg In general patient is alert and oriented x 3 in no distress HEENT head normocephalic and atraumatic Neck is supple no JVD no goiter no lymphadenopathy no carotid bruit Chest examination is clear to auscultation no crackles no wheezing Cardiac exam reveals regular heart sounds S1 and S2 no gallops, there is a 3/6 systolic murmur in the left sternal border Abdomen is soft nontender no organomegaly with normal bowel sounds Extremity exam reveals no edema no cyanosis or clubbing Neurological examination reveals no gross focal deficits Results CBC & Chem 7: 04/05/23 05:41 04/05/23 05:41 Assessment and Plan Plan: Status post right total knee arthroplasty on 04/04/2023, pain management and DVT prophylaxis per orthopedic protocol Underlying history of hypertension Underlying history of hyperlipidemia Underlying history of valvular heart disease with heart murmur followed by Dr. Dr. Blankenship Underlying history of rheumatoid arthritis Underlying history of fibromyalgia At this time patient was seen and examined on the medical floor Home medications reviewed and reordered Labs were ordered for a.m. Will follow closely while hospitalized
--- NOTE | 2023-04-05 17:21 | P.PN ---
Subjective Progress Note Date: 04/05/23 Pina Hwang, is a 68-year-old female patient of Dr. Jalloh, who was admitted to [facility] by Dr. Heard, and underwent right total knee arthroplasty on 04/04/2023, medical consultation was requested for management while hospitalized. Patient has a known history of hypertension, h yperlipidemia, osteoarthritis, valvular heart disease, history of rheumatoid arthritis and history of fibromyalgia. On review of systems patient is alert and oriented 3 in no apparent distress there is no fever or chills no headache or dizziness no chest pain no shortness of breath no cough no nausea or vomiting no abdominal pain no diarrhea no blood in the stools burning with urination no frequency or urgency and no hematuria. There is no weakness or numbness in any of the extremities, no change in vision speech or gait. On 04/05/2023 patient was seen on the medical floor she is alert and oriented 3 in no apparent distress there is no fever or chills no headache or dizziness no chest pain no shortness of breath no cough no nausea or vomiting no abdominal pain no diarrhea and no urinary symptoms Objective - Vital Signs Vital signs: Vital Signs Temp 98.4 F 04/05/23 14:00 Pulse 81 04/05/23 14:00 Resp 18 04/05/23 14:00 BP 116/70 04/05/23 14:00 Pulse Ox 92 L 04/05/23 14:00 FiO2 Intake & Output 04/04/23 04/05/23 04/05/23 18:59 06:59 18:59 Intake Total 195 1250 1010 Output Total 350 375 Balance 5260 169 9277 Weight 104.1 kg Intake: IV 1955 Intake, IV Titration 1250 800 Amount Lactated Ringers 1,000 ml 1200 800 @ 100 mls/hr IV .Q10H ZULEIMA Rx#:[id number] ceFAZolin 2 gm In Sodium 50 Chloride 0.9% 50 ml @ 100 mls/hr IVPB Q8H ZULEIMA Rx#: [id number] Oral 210 Output: Urine 250 375 Estimated Blood Loss 100 Other: Voiding Method Bedside Commode # Voids 1 - Exam In general patient is alert and oriented x 3 in no distress HEENT head normocephalic and atraumatic Neck is supple no JVD no goiter no lymphadenopathy no carotid bruit Chest examination is clear to auscultation no crackles no wheezing Cardiac exam reveals regular heart sounds S1 and S2 no gallops, there is a 3/6 systolic murmur in the left sternal border Abdomen is soft nontender no organomegaly with normal bowel sounds Extremity exam reveals no edema no cyanosis or clubbing Neurological examination reveals no gross focal deficits - Labs CBC & Chem 7: 04/05/23 05:41 04/05/23 05:41 Labs: Abnormal Lab Results - Last 24 Hours (Table) 04/05/23 04/05/23 Range/Units 05:41 05:41 MCHC 31.3 L (32.0-37.0) g/dL Neutrophils # 8.09 H (1.80-7.70) X 10*3/uL Lymphocytes # 0.80 L (0.90-5.00) X 10*3/uL Eosinophils # 0.02 L (0.04-0.35) X 10*3/uL Sodium 133 L (135-145) mmol/L Glucose 151 H (70-110) mg/dL Total Protein 6.0 L (6.2-8.2) g/dL Albumin 3.6 L (3.8-4.9) g/dL Albumin/Globulin Ratio 1.50 L (1.60-3.17) Ratio Assessment and Plan Plan: Status post right total knee arthroplasty on 04/04/2023, pain management and DVT prophylaxis per orthopedic protocol Underlying history of hypertension Underlying history of hyperlipidemia Underlying history of valvular heart disease with heart murmur followed by Dr. Dr. Blankenship Underlying history of rheumatoid arthritis Underlying history of fibromyalgia At this time patient was seen and examined on the medical floor Home medications reviewed and reordered Labs were ordered for a.m. Will follow closely while hospitalized
[2023-04-06 02:47] VITALS: TEMP 98.4
[2023-04-06 07:30] VITALS: BP 101/66; PULSE 81
[2023-04-06 09:08] VITALS: RESP 20
--- NOTE | 2023-04-06 09:39 | P.DS ---
Providers Expected date of discharge: 04/06/23 Attending physician: Gilbert Heard Consults: 04/04/23 14:43 Consult Physician Routine Consulting Provider: Jane Simmons Consult Reason/Comments: Medical management Do you want consulting provider notified?: Yes Primary care physician: Berna Jalloh - Discharge Diagnosis(es) (1) Osteoarthritis of right knee Current Visit: Yes Status: Acute (2) S/P total knee arthroplasty Current Visit: Yes Status: Acute Hospital Course: This is a 68-year-old female who was last seen with complaint of continued right knee pain. The patient has a known history of degenerative arthritis of the right knee and presents to discuss surgical options. After discussion and consideration the patient elects to proceed with total right knee arthroplasty. The patient is seen preoperatively by her primary care physician and cleared for surgery. The patient is admitted to [facility] for total right knee arthroplasty. The procedures performed without complication or sequelae. Patient is doing well postoperatively. Vital signs are stable at discharge. Labs are stable at discharge. the patient is ambulating well with walker with minimal assistance. The patient is discharged to home on postop day #2 pending medical clearance. Please see orders and refer to the med rec for accurate list of medications. Plan - Discharge Summary Discharge Rx Participant: Yes New Discharge Prescriptions: New Aspirin [Adult Low Dose Aspirin EC] 81 mg PO BID #1 tab HYDROcodone/APAP 7.5-325MG [[place] 7.5-325] 1 - 2 tab PO Q6HR PRN #32 tab PRN Reason: Pain Sennosides-Docusate Sodium [Senokot-S] 1 tab PO BID #60 tablet Ondansetron Odt [Zofran Odt] 4 mg PO Q8HR PRN #14 tab PRN Reason: Nausea No Action EPINEPHrine (Auto Inject) [Epipen] 0.3 mg IM ONCE PRN #2 syringe PRN Reason: Anaphylaxis Cholecalciferol [Vitamin D3 (25 Mcg = 1000 Iu)] 5,000 unit PO BID Fexofenadine/Pseudoephedrine [Ange-D 12 Hour Tablet] 1 each PO QAM Cetirizine HCl [Zyrtec] 30 mg PO HS DULoxetine HCL [Cymbalta] 30 mg PO BID Magnesium Carb,Citrate,Oxide [Magnesium Complex] 1,000 mg PO HS Celecoxib [CeleBREX] 200 mg PO DAILY Unk Steroid Inhaler 1 puff INHALATION DIRECTED PRN PRN Reason: wheeze Unk Albuterol Inhaler 1 puff INHALATION DIRECTED PRN PRN Reason: Congestion Losartan [Cozaar] 25 mg PO HS Rosuvastatin [Crestor] 10 mg PO HS hydroCHLOROthiazide 12.5 mg PO DAILY Multivitamins, Thera [Multivitamin (formulary)] 1 tab PO DAILY Discharge Medication List EPINEPHrine (Auto Inject) [Epipen] 0.3 mg IM ONCE PRN #2 syringe 07/27/16 [Rx] Cetirizine HCl [Zyrtec] 30 mg PO HS 09/20/18 [History] Cholecalciferol [Vitamin D3 (25 Mcg = 1000 Iu)] 5,000 unit PO BID 09/20/18 [History] Fexofenadine/Pseudoephedrine [Ange-D 12 Hour Tablet] 1 each PO QAM 09/20/18 [History] DULoxetine HCL [Cymbalta] 30 mg PO BID 11/16/22 [History] Losartan [Cozaar] 25 mg PO HS 11/16/22 [History] Magnesium Carb,Citrate,Oxide [Magnesium Complex] 1,000 mg PO HS 11/16/22 [History] Multivitamins, Thera [Multivitamin (formulary)] 1 tab PO DAILY 11/16/22 [History] Rosuvastatin [Crestor] 10 mg PO HS 11/16/22 [History] hydroCHLOROthiazide 12.5 mg PO DAILY 11/16/22 [History] Celecoxib [CeleBREX] 200 mg PO DAILY 02/23/23 [History] Unk Albuterol Inhaler 1 puff INHALATION DIRECTED PRN 02/23/23 [History] Unk Steroid Inhaler 1 puff INHALATION DIRECTED PRN 02/23/23 [History] Aspirin [Adult Low Dose Aspirin EC] 81 mg PO BID #1 tab 04/04/23 [Rx] HYDROcodone/APAP 7.5-325MG [[place] 7.5-325] 1 - 2 tab PO Q6HR PRN #32 tab 04/04/23 [Rx] Ondansetron Odt [Zofran Odt] 4 mg PO Q8HR PRN #14 tab 04/04/23 [Rx] Sennosides-Docusate Sodium [Senokot-S] 1 tab PO BID #60 tablet 04/04/23 [Rx] Follow up Appointment(s)/Referral(s): Aminata Myers, SIMA [PHYSICIAN PHARMACEUTICAL DEVELOPMENT TECHNICIAN] - 2 Weeks [facility], [NON-STAFF] - As Needed Patient Instructions/Handouts: *Surgery [facility] - (O&A) Arthroscopic Knee Post-Op Instructions, *Surgery [facility] - On-Q Pain Pump Discharge Instructions Activity/Diet/Wound Care/Special Instructions: May bear wt as tolerated w walker. May remove otis wrap and stocking 72h post op and may shower. Wear Stockings BLE for 2 weeks post op during the day. Begin PT as directed. Discharge Disposition: HOME WITH HOME HEALTH SERVICES
--- NOTE | 2023-04-06 13:07 | P.PN ---
Subjective Progress Note Date: 04/06/23 Pina Hwang, is a 68-year-old female patient of Dr. Jalloh, who was admitted to [facility] by Dr. Heard, and underwent right total knee arthroplasty on 04/04/2023, medical consultation was requested for management while hospitalized. Patient has a known history of hypertension, h yperlipidemia, osteoarthritis, valvular heart disease, history of rheumatoid arthritis and history of fibromyalgia. On review of systems patient is alert and oriented 3 in no apparent distress there is no fever or chills no headache or dizziness no chest pain no shortness of breath no cough no nausea or vomiting no abdominal pain no diarrhea no blood in the stools burning with urination no frequency or urgency and no hematuria. There is no weakness or numbness in any of the extremities, no change in vision speech or gait. On 04/05/2023 patient was seen on the medical floor she is alert and oriented 3 in no apparent distress there is no fever or chills no headache or dizziness no chest pain no shortness of breath no cough no nausea or vomiting no abdominal pain no diarrhea and no urinary symptoms. On 04/06/2023 patient was seen and examined on the medical floor she is alert and oriented 3 in no apparent distress she denies any complaints at this time there is no fever or chills no headache or dizziness no chest pain no shortness of breath no cough no nausea or vomiting no abdominal pain no diarrhea no blood in the stools no burning with urination no frequency or urgency and no hematuria, there is no weakness or numbness in any of the extremities no change in vision speech or gait. Patient has minimal pain in her lower extremity, she he was discharged home by orthopedic surgery. Patient is stable medical-abrams for discharge. Objective - Vital Signs Vital signs: Vital Signs Temp 98.4 F 04/06/23 07:20 Pulse 81 04/06/23 07:20 Resp 20 04/06/23 09:03 BP 101/66 04/06/23 07:20 Pulse Ox 97 04/06/23 07:20 FiO2 Intake & Output 04/05/23 04/06/23 04/06/23 18:59 06:59 18:59 Intake Total 1130 250 Balance 1130 250 Intake: Intake, IV Titration 800 Amount Lactated Ringers 1,000 ml 800 @ 100 mls/hr IV .Q10H ZULEIMA Rx#:[id number] Oral 330 250 Other: Voiding Method Bedside Commode # Voids 3 - Exam In general patient is alert and oriented x 3 in no distress HEENT head normocephalic and atraumatic Neck is supple no JVD no goiter no lymphadenopathy no carotid bruit Chest examination is clear to auscultation no crackles no wheezing Cardiac exam reveals regular heart sounds S1 and S2 no gallops, there is a 3/6 systolic murmur in the left sternal border Abdomen is soft nontender no organomegaly with normal bowel sounds Extremity exam reveals no edema no cyanosis or clubbing Neurological examination reveals no gross focal deficits - Labs CBC & Chem 7: 04/05/23 05:41 04/05/23 05:41 Assessment and Plan Plan: Status post right total knee arthroplasty on 04/04/2023, pain management and DVT prophylaxis per orthopedic protocol Underlying history of hypertension Underlying history of hyperlipidemia Underlying history of valvular heart disease with heart murmur followed by Dr. Dr. Blankenship Underlying history of rheumatoid arthritis Underlying history of fibromyalgia At this time patient was seen and examined on the medical floor Home medications reviewed and reordered Labs were ordered for a.m. Will follow closely while hospitalized
== END 2023-04-06 13:06 | disposition home health service (06) ==
LOC: OR 10:21 → 4SSUR 14:33 → OR 04-06 13:06
PROVIDERS: ATTEND Orthopaedic Surgery
DX: M17.11 Unilateral primary osteoarthritis, right knee (principal); I10 Essential (primary) hypertension; E78.5 Hyperlipidemia, unspecified; M06.9 Rheumatoid arthritis, unspecified; Z85.41 Personal history of malignant neoplasm of cervix uteri; Z90.710 Acquired absence of both cervix and uterus; Z98.890 Other specified postprocedural states; Z79.899 Other long term (current) drug therapy; Z87.891 Personal history of nicotine dependence
CPT/HCPCS: 97530; 97161; 64999; 64448; 80053; 85025; 73560; 27447; C1713; C1776; C1751; J2250; J0690 ×2; J2405 ×2; J1170 ×2; J2795; J0736

== ENCOUNTER 2023-10-23 12:23 | Emergency (ER) | payer OTHER ==
--- NOTE | 2023-10-23 12:58 | ED ---
General Adult HPI - General Chief complaint: Chest Pain Stated complaint: chest pains Time Seen by Provider: 10/23/23 12:25 Source: patient, RN notes reviewed, old records reviewed Mode of arrival: ambulatory Limitations: no limitations - History of Present Illness Initial comments: 68-year-old female she presents to the emergency department because at 3:00 in the morning she started having some sharp back pain it was worsened with movement or deep breathing. Patient states it also started to progress to her left flank and slightly anterior. Patient states she can make the pain worse with movement or breathing. Patient denies any fever chills or cough. Patient states she did feel little sweaty with it this morning. Patient denies any significant difficulty breathing. Except that it hurts to take a deep breath. Patient Nuys any abdominal pain patient has nausea, diarrhea. Patient does have a history of high blood pressure she denies any heart history except for murmur she denies any history of high cholesterol or smoking or diabetes. - Related Data Home Medications Medication Instructions Recorded Confirmed Cetirizine HCl [Zyrtec] 30 mg PO HS 09/20/18 04/04/23 Cholecalciferol [Vitamin D3 (25 5,000 unit PO BID 09/20/18 03/29/23 Mcg = 1000 Iu)] Fexofenadine/Pseudoephedrine 1 each PO QAM 09/20/18 04/04/23 [Ange-D 12 Hour Tablet] DULoxetine HCL [Cymbalta] 30 mg PO BID 11/16/22 04/04/23 Losartan [Cozaar] 25 mg PO HS 11/16/22 04/04/23 Magnesium Carb,Citrate,Oxide 1,000 mg PO HS 11/16/22 03/29/23 [Magnesium Complex] Multivitamins, Thera [Multivitamin 1 tab PO DAILY 11/16/22 03/29/23 (formulary)] Rosuvastatin [Crestor] 10 mg PO HS 11/16/22 04/04/23 hydroCHLOROthiazide 12.5 mg PO DAILY 11/16/22 04/04/23 Celecoxib [CeleBREX] 200 mg PO DAILY 02/23/23 03/29/23 Unk Albuterol Inhaler 1 puff INHALATION DIRECTED PRN 02/23/23 04/04/23 Unk Steroid Inhaler 1 puff INHALATION DIRECTED PRN 02/23/23 04/04/23 Previous Rx's Medication Instructions Recorded EPINEPHrine (Auto Inject) [Epipen] 0.3 mg IM ONCE PRN #2 syringe 07/27/16 Aspirin [Adult Low Dose Aspirin EC] 81 mg PO BID #1 tab 04/04/23 HYDROcodone/APAP 7.5-325MG [[place] 1 - 2 tab PO Q6HR PRN #32 tab 04/04/23 7.5-325] Ondansetron Odt [Zofran Odt] 4 mg PO Q8HR PRN #14 tab 04/04/23 Sennosides-Docusate Sodium 1 tab PO BID #60 tablet 04/04/23 [Senokot-S] Allergies Allergy/AdvReac Type Severity Reaction Status Date / Time ibuprofen Allergy Anaphylaxis Verified 10/23/23 12:28 naproxen sodium [From Aleve] Allergy Anaphylaxis Verified 10/23/23 12:28 Penicillins Allergy Anaphylaxis Verified 10/23/23 12:28 Sulfa (Sulfonamide Allergy Anaphylaxis Verified 10/23/23 12:28 Antibiotics) sulfamethoxazole Allergy Anaphylaxis Verified 10/23/23 12:28 [From Bactrim] trimethoprim [From Bactrim] Allergy Anaphylaxis Verified 10/23/23 12:28 tramadol [From Ultram] AdvReac Rash/Hives Verified 10/23/23 12:28 Review of Systems ROS Statement: Those systems with pertinent positive or pertinent negative responses have been documented in the HPI. ROS Other: All systems not noted in ROS Statement are negative. Past Medical History Past Medical History: Cancer, Hypertension, Rheumatoid Arthritis (RA), Thyroid Disorder Additional Past Medical History / Comment(s): Heart murmur, thyroid nodules, cervical cancer History of Any Multi-Drug Resistant Organisms: None Reported Past Surgical History: Bariatric Surgery, Breast Surgery, Hysterectomy, Orthopedic Surgery Additional Past Surgical History / Comment(s): right leg surgery. milk duct removed Past Anesthesia/Blood Transfusion Reactions: Postoperative Nausea & Vomiting (PONV) Additional Past Anesthesia/Blood Transfusion Reaction / Comment(s): when she had "twilight" she stopped breathing and needed to be intubated Past Psychological History: Anxiety, Depression Smoking Status: Former smoker Past Alcohol Use History: Occasional Past Drug Use History: None Reported - Past Family History Sister(s) Family Medical History: Cancer Additional Family Medical History / Comment(s): nonhodgkins lymphoma Father Additional Family Medical History / Comment(s): "heart and abdominal aneurysms" General Exam - General Exam Comments Initial Comments: GENERAL: Patient is well-developed and well-nourished. Patient is nontoxic and well- hydrated and is in mild distress. ENT: Neck is soft and supple. No significant lymphadenopathy is noted. Oropharynx is clear. Moist mucous membranes. Neck has full range of motion without eliciting any pain. EYES: The sclera were anicteric and conjunctiva were pink and moist. Extraocular movements were intact and pupils were equal round and reactive to light. E yelids were unremarkable. PULMONARY: Unlabored respirations. Good breath sounds bilaterally. No audible rales rhonchi or wheezing was noted. CARDIOVASCULAR: There is a regular rate and rhythm without any murmurs gallops or rubs. ABDOMEN: Soft and nontender with normal bowel sounds. SKIN: Skin is clear with no lesions or rashes and otherwise unremarkable. NEUROLOGIC: Patient is alert and oriented x3. Cranial nerves II through XII are grossly intact. Motor and sensory are also intact. Normal speech, volume and content. Symmetrical smile. MUSCULOSKELETAL: Normal extremities with adequate strength and full range of motion. Patient's back pain is reproducible with palpation LYMPHATICS: No significant lymphadenopathy is noted PSYCHIATRIC: Normal psychiatric evaluation. Limitations: no limitations Course Vital Signs 10/23/23 10/23/23 10/23/23 12:25 12:54 13:20 Temperature 97.8 F 99.5 F 99.3 F Pulse Rate 78 71 68 Respiratory 15 14 14 Rate Blood Pressure 141/80 137/71 O2 Sat by Pulse 99 95 Oximetry 10/23/23 14:31 Temperature 98.2 F Pulse Rate 68 Respiratory 18 Rate Blood Pressure 143/69 O2 Sat by Pulse 98 Oximetry Medical Decision Making - Medical Decision Making EKG is interpreted by myself at EKG shows a sinus rhythm at 73 bpm ND was 207 QRS is 105 QT interval is 412 QTc is 438. Patient's EKG shows no ST segment elevation or depression. Was pt. sent in by a medical professional or institution (, PA, RUG BACKING STENCILER, urgent care, hospital, or fci...) When possible be specific @ -No Did you speak to anyone other than the patient for history (EMS, parent, family, police, friend...)? What history was obtained from this source @ -No Did you review nursing and triage notes (agree or disagree)? Why? @ -I reviewed and agree with nursing and triage notes Were old charts reviewed (outside hosp., previous admission, EMS record, old EKG, old radiological studies, urgent care reports/EKG's, fci records)? Report findings @ -No old charts were reviewed Differential Diagnosis? @ -Differential Chest Pain: Stable Angina, Unstable Angina, STEMI, NSTEMI Aortic Dissection, Pneumothorax, Musculoskeletal, Esophageal Spasm GERD, Cholecystitis, Pancreatitis, Zoster, this is not meant to be an all-inclusive list. EKG interpreted by me (3pts min.). @ -As above X-rays interpreted by me (1pt min.). @ -Chest x-ray shows no acute abnormality CT interpreted by me (1pt min.). @ -CT of the chest shows no PE and no infiltrates U/S interpreted by me (1pt. min.). @ -None done What testing was considered but not performed or refused? (CT, X-rays, U/S, labs)? Why? @ -None What meds were considered but not given or refused? Why? @ -None Did you discuss the management of the patient with other professionals (professionals i.e. , PA, RUG BACKING STENCILER, lab, RT, psych nurse, child protective services social worker, trade show specialist, te acher, police officer crime prevention, caser in)? Give summary @ -No Was smoking cessation discussed for >3mins.? @ -No Was critical care preformed (if so, how long)? @ -No Were there social determinants of health that impacted care today? How? (Homelessness, low income, unemployed, alcoholism, drug addiction, transportation, low edu. Level, literacy, decrease access to med. care, detention, rehab)? @ -No Was there de-escalation of care discussed even if they declined (Discuss DNR or withdrawal of care, Hospice)? DNR status @ -No What co-morbidities impacted this encounter? (DM, HTN, Smoking, COPD, CAD, Cancer, CVA, ARF, Chemo, Hep., AIDS, mental health diagnosis, sleep apnea, morbid obesity)? @ -None Was patient admitted / discharged? Hospital course, mention meds given and route, prescriptions, significant lab abnormalities, going to OR and other pertinent info. @ -Patient's lab work was within normal range. Patient CT scan showed no PE. Patient was given Toradol in the emergency department and it helped with her pain Undiagnosed new problem with uncertain prognosis? @ -No Drug Therapy requiring intensive monitoring for toxicity (Heparin, Nitro, Insulin, Cardizem)? @ -No Were any procedures done? @ -No Diagnosis/symptom? @ -Musculoskeletal chest pain Acute, or Chronic, or Acute on Chronic? @ -Acute Uncomplicated (without systemic symptoms) or Complicated (systemic symptoms)? @ -Complicated Side effects of treatment? @ -No Exacerbation, Progression, or Severe Exacerbation? @ -No Poses a threat to life or bodily function? How? (Chest pain, [place], [place], pneumonia, PE, COPD, DKA, ARF, appy, cholecystitis, CVA, Diverticulitis, Homicidal, Suicidal, threat to staff... and all critical care pts) @ -No - Lab Data Result diagrams: 10/23/23 12:54 10/23/23 12:54 Lab Results 10/23/23 10/23/23 10/23/23 Range/Units 12:54 12:54 12:54 WBC 7.8 (3.8-10.6) k/uL RBC 4.49 (3.80-5.40) m/uL Hgb 13.4 (11.4-16.0) gm/dL Hct 41.7 (34.0-46.0) % MCV 92.8 (80.0-100.0) fL MCH 29.9 (25.0-35.0) pg MCHC 32.3 (31.0-37.0) g/dL RDW 14.3 (11.5-15.5) % Plt Count 232 (150-450) k/uL MPV 8.2 Neutrophils % 58 % Lymphocytes % 30 % Monocytes % 5 % Eosinophils % 6 % Basophils % 1 % Neutrophils # 4.5 (1.3-7.7) k/uL Lymphocytes # 2.3 (1.0-4.8) k/uL Monocytes # 0.4 (0-1.0) k/uL Eosinophils # 0.5 (0-0.7) k/uL Basophils # 0.1 (0-0.2) k/uL PT 10.1 (10.0-12.5) sec INR 0.9 (<1.2) APTT 25.0 (22.0-30.0) sec D-Dimer 0.82 H (<0.60) mg/L FEU Sodium 136 L (137-145) mmol/L Potassium 4.7 (3.5-5.1) mmol/L Chloride 103 (98-107) mmol/L Carbon Dioxide 30 (22-30) mmol/L Anion Gap 3 mmol/L BUN 18 H (7-17) mg/dL Creatinine 0.56 (0.52-1.04) mg/dL Est GFR (CKD-EPI)AfAm >90 (>60 ml/min/1.73 sqM) Est GFR (CKD-EPI)NonAf >90 (>60 ml/min/1.73 sqM) Glucose 86 (74-99) mg/dL Calcium 8.9 (8.4-10.2) mg/dL Magnesium 1.9 (1.6-2.3) mg/dL Total Bilirubin 1.4 H (0.2-1.3) mg/dL AST 46 H (14-36) U/L ALT 11 (4-34) U/L Alkaline Phosphatase 45 (38-126) U/L Troponin I (0.000-0.034) ng/mL Total Protein 6.9 (6.3-8.2) g/dL Albumin 4.0 (3.5-5.0) g/dL 10/23/23 Range/Units 12:54 WBC (3.8-10.6) k/uL RBC (3.80-5.40) m/uL Hgb (11.4-16.0) gm/dL Hct (34.0-46.0) % MCV (80.0-100.0) fL MCH (25.0-35.0) pg MCHC (31.0-37.0) g/dL RDW (11.5-15.5) % Plt Count (150-450) k/uL MPV Neutrophils % % Lymphocytes % % Monocytes % % Eosinophils % % Basophils % % Neutrophils # (1.3-7.7) k/uL Lymphocytes # (1.0-4.8) k/uL Monocytes # (0-1.0) k/uL Eosinophils # (0-0.7) k/uL Basophils # (0-0.2) k/uL PT (10.0-12.5) sec INR (<1.2) APTT (22.0-30.0) sec D-Dimer (<0.60) mg/L FEU Sodium (137-145) mmol/L Potassium (3.5-5.1) mmol/L Chloride (98-107) mmol/L Carbon Dioxide (22-30) mmol/L Anion Gap mmol/L BUN (7-17) mg/dL Creatinine (0.52-1.04) mg/dL Est GFR (CKD-EPI)AfAm (>60 ml/min/1.73 sqM) Est GFR (CKD-EPI)NonAf (>60 ml/min/1.73 sqM) Glucose (74-99) mg/dL Calcium (8.4-10.2) mg/dL Magnesium (1.6-2.3) mg/dL Total Bilirubin (0.2-1.3) mg/dL AST (14-36) U/L ALT (4-34) U/L Alkaline Phosphatase (38-126) U/L Troponin I <0.012 (0.000-0.034) ng/mL Total Protein (6.3-8.2) g/dL Albumin (3.5-5.0) g/dL Disposition Clinical Impression: Musculoskeletal chest pain Disposition: HOME SELF-CARE Condition: Good Instructions (If sedation given, give patient instructions): Chest Pain (ED) Additional Instructions: Patient should take Motrin 600 mg every 6 hours Is patient prescribed a controlled substance at d/c from ED?: No Referrals: Berna Jalloh MD [Primary Care Provider] - 1-2 days Time of Disposition: 15:08
[2023-10-23] MEDS: KETOROLAC 15 MG/ML 1 ML VIAL IVP STA (13:17)
[2023-10-23 13:27] LABS: Basophils # (A) 0.1 k/uL (0-0.2); Basophils % (A) 1 %; Eosinophils # (A) 0.5 k/uL (0-0.7); Eosinophils % (A) 6 %; HCT 41.7 % (34.0-46.0); HGB 13.4 gm/dL (11.4-16.0); Lymphocytes # (A) 2.3 k/uL (1.0-4.8); Lymphocytes % (A) 30 %; MCH 29.9 pg (25.0-35.0); MCHC 32.3 g/dL (31.0-37.0); MCV 92.8 fL (80.0-100.0); Mean Platelet Volume 8.2; Monocytes # (A) 0.4 k/uL (0-1.0); Monocytes % (A) 5 %; Neutrophils # (A) 4.5 k/uL (1.3-7.7); Neutrophils % (A) 58 %; Platelet Count 232 k/uL (150-450); RBC 4.49 m/uL (3.80-5.40); RDW 14.3 % (11.5-15.5); WBC 7.8 k/uL (3.8-10.6)
[2023-10-23 13:44] LABS: INR 0.9 (<1.2); Prothrombin Time 10.1 sec (10.0-12.5)
[2023-10-23 13:46] LABS: African American GFR (CKD) >90 (>60 ml/min/1.73 sqM); Anion Gap 3 mmol/L; Blood Urea Nitrogen 18 mg/dL (7-17); Calcium 8.9 mg/dL (8.4-10.2); Carbon Dioxide 30 mmol/L (22-30); Chloride 103 mmol/L (98-107); Non-African American GFR(CKD) >90 (>60 ml/min/1.73 sqM); Sodium 136 mmol/L (137-145); Total Bilirubin 1.4 mg/dL (0.2-1.3); Total Protein 6.9 g/dL (6.3-8.2)
--- NOTE | 2023-10-23 13:52 | XR ---
EXAMINATION TYPE: XR chest 2V DATE OF EXAM: 10/23/2023 COMPARISON: None INDICATION: Chest pain TECHNIQUE: Frontal and lateral views of the chest are obtained. FINDINGS: The heart size is normal. The pulmonary vasculature is normal. The lungs are clear. IMPRESSION: 1. No acute pulmonary process.
[2023-10-23 13:56] LABS: ALT 11 U/L (4-34); AST 46 U/L (14-36); Alkaline Phosphatase 45 U/L (38-126); Glucose 86 mg/dL (74-99); Magnesium 1.9 mg/dL (1.6-2.3); Potassium 4.7 mmol/L (3.5-5.1)
[2023-10-23 14:32] VITALS: RESP 18
--- NOTE | 2023-10-23 14:51 | CT ---
EXAMINATION TYPE: CT chest angio for PE CT DLP: 430.2 mGycm, Automated exposure control for dose reduction was used. DATE OF EXAM: 10/23/2023 2:31 PM COMPARISON: 10/23/2023 CLINICAL INDICATION: Female, 68 years old with history of Sharp chest pain, elevated D-dimer; PE, Sha rp chest pain TECHNIQUE/CONTRAST: CTA scan of the thorax is performed without and with IV Contrast, patient injected with 100 ml mL of Isovue 370, MIP images are created and reviewed these are created on a separate workstation.. FINDINGS: Pulmonary Artery: There is no evidence for a filling defect within the pulmonary vasculature to sugge st acute pulmonary embolism. The pulmonary artery is of normal size. Lungs/Pleura: No evidence of focal consolidation, pleural effusion or pneumothorax. Airway: Large airways are patent. Heart: Heart is within normal limits for size. Vasculature: No evidence of aortic aneurysm. Mediastinum: No gross evidence of adenopathy. Moderate hiatal hernia. Postsurgical changes gastric gino men was sutured present. Musculoskeletal: Severe degenerative disc disease changes are present throughout the thoracolumbar sp ine. Soft Tissues/lymph nodes: Unremarkable. Lower neck: No significant findings. Upper Abdomen: No significant findings. IMPRESSION: 1. No evidence of pulmonary embolism. 2. Mild cardiomegaly. 3. Diffuse idiopathic skeletal hyperostosis.
[2023-10-23 15:06] VITALS: BP 138/67; PULSE 71; TEMP 98.4
== END 2023-10-23 15:16 | disposition home or self-care (01) ==
LOC: EC 12:23
DX: R07.89 Other chest pain (principal); Z87.891 Personal history of nicotine dependence; Z88.0 Allergy status to penicillin; Z88.2 Allergy status to sulfonamides; Z88.5 Allergy status to narcotic agent
CPT/HCPCS: 99285; 96374; 36415; 93005; 85379; 80053; 83735; 84484; 85025; 85610; 85730; 71046; 71275; J1885; Q9967

== ENCOUNTER 2023-11-28 16:16 | Emergency (ER) | payer OTHER, MEDICARE ==
[2023-11-28 16:19] VITALS: RESP 18
--- NOTE | 2023-11-28 16:49 | ED ---
Abdominal Pain HPI - General Chief Complaint: Abdominal Pain Stated Complaint: R side abd pain Time Seen by Provider: 11/28/23 16:23 Source: patient Mode of arrival: ambulatory Limitations: no limitations - History of Present Illness Initial Comments: Patient is a pleasant 68-year-old female past medical history rheumatoid arthritis presenting for right upper quadrant pain. States started last night. Describes it as "a pain," difficult to describe. Did take Tylenol this morning that did not provide much relief. Endorses nausea but no vomiting. No diarrhea. No constipation, black or bloody stools. No cough or chest pain. Patient states it hurts to take a deep breath but otherwise denies shortness of breath. PSHx of prior gastric sleeve. Patient does states she is a history of prior kidney stones however states that this feels differently. Denies hematuria, dysuria or urinary frequency. Denies fevers or chills. Did state this morning that her temperature was "99 point something". - Related Data Home Medications Medication Instructions Recorded Confirmed Cetirizine HCl [Zyrtec] 30 mg PO HS 09/20/18 04/04/23 Cholecalciferol [Vitamin D3 (25 5,000 unit PO BID 09/20/18 03/29/23 Mcg = 1000 Iu)] Fexofenadine/Pseudoephedrine 1 each PO QAM 09/20/18 04/04/23 [Ange-D 12 Hour Tablet] DULoxetine HCL [Cymbalta] 30 mg PO BID 11/16/22 04/04/23 Losartan [Cozaar] 25 mg PO HS 11/16/22 04/04/23 Magnesium Carb,Citrate,Oxide 1,000 mg PO HS 11/16/22 03/29/23 [Magnesium Complex] Multivitamins, Thera [Multivitamin 1 tab PO DAILY 11/16/22 03/29/23 (formulary)] Rosuvastatin [Crestor] 10 mg PO HS 11/16/22 04/04/23 hydroCHLOROthiazide 12.5 mg PO DAILY 11/16/22 04/04/23 Celecoxib [CeleBREX] 200 mg PO DAILY 02/23/23 03/29/23 Unk Albuterol Inhaler 1 puff INHALATION DIRECTED PRN 02/23/23 04/04/23 Unk Steroid Inhaler 1 puff INHALATION DIRECTED PRN 02/23/23 04/04/23 Previous Rx's Medication Instructions Recorded EPINEPHrine (Auto Inject) [Epipen] 0.3 mg IM ONCE PRN #2 syringe 07/27/16 Aspirin [Adult Low Dose Aspirin EC] 81 mg PO BID #1 tab 04/04/23 HYDROcodone/APAP 7.5-325MG [[place] 1 - 2 tab PO Q6HR PRN #32 tab 04/04/23 7.5-325] Ondansetron Odt [Zofran Odt] 4 mg PO Q8HR PRN #14 tab 04/04/23 Sennosides-Docusate Sodium 1 tab PO BID #60 tablet 04/04/23 [Senokot-S] Allergies Allergy/AdvReac Type Severity Reaction Status Date / Time ibuprofen Allergy Anaphylaxis Verified 11/28/23 16:19 naproxen sodium [From Aleve] Allergy Anaphylaxis Verified 11/28/23 16:19 Penicillins Allergy Anaphylaxis Verified 11/28/23 16:19 Sulfa (Sulfonamide Allergy Anaphylaxis Verified 11/28/23 16:19 Antibiotics) sulfamethoxazole Allergy Anaphylaxis Verified 11/28/23 16:19 [From Bactrim] trimethoprim [From Bactrim] Allergy Anaphylaxis Verified 11/28/23 16:19 tramadol [From Ultram] AdvReac Rash/Hives Verified 11/28/23 16:19 Review of Systems ROS Statement: Those systems with pertinent positive or pertinent negative responses have been documented in the HPI. ROS Other: All systems not noted in ROS Statement are negative. Past Medical History Past Medical History: Cancer, Hypertension, Rheumatoid Arthritis (RA), Thyroid Disorder Additional Past Medical History / Comment(s): Heart murmur, thyroid nodules, cervical cancer History of Any Multi-Drug Resistant Organisms: None Reported Past Surgical History: Bariatric Surgery, Breast Surgery, Hysterectomy, Orthopedic Surgery Additional Past Surgical History / Comment(s): right leg surgery. milk duct removed Past Anesthesia/Blood Transfusion Reactions: Postoperative Nausea & Vomiting (PONV) Additional Past Anesthesia/Blood Transfusion Reaction / Comment(s): when she had "twilight" she stopped breathing and needed to be intubated Past Psychological History: Anxiety, Depression Smoking Status: Former smoker Past Alcohol Use History: Occasional Past Drug Use History: None Reported - Past Family History Sister(s) Family Medical History: Cancer Additional Family Medical History / Comment(s): nonhodgkins lymphoma Father Additional Family Medical History / Comment(s): "heart and abdominal aneurysms" General Exam - General Exam Comments Initial Comments: PE: CONSTITUTIONAL: No apparent distress, well appearing SKIN: Warm, dry, no jaundice, hives or petechiae EYES: Pupils are equally round, extraocular movements intact without nystagmus, clear conjunctiva, non-icteric sclera HENT: Normocephalic, atraumatic, moist mucus membranes, oropharynx clear without exudates NECK: , Full range of motion, normal appearance PULMONARY: Clear to auscultation without wheezes, rhonchi, or rales, normal excursion, no accessory muscle use and no stridor CARDIOVASCULAR: Regular rate, rhythm, normal S1 and S2. No appreciated murmurs, rubs or gallops. Strong radial pulses with intact distal perfusion. No lower extremity edema GASTROINTESTINAL: Soft, active bowel sounds throughout, right upper quadrant tenderness to palpation, positive Saxena sign, no CVA tenderness non-distended, no palpable masses, no rebound; guarding with palpation of the right upper quadrant. No hepatosplenomegaly MUSCULOSKELETAL: Extremities have no gross deformity, no edema, redness, or swelling. No calf swelling NEUROLOGIC:_a/o x 3, GCS 15, normal mentation and speech. Moves all extremities x 4 without motor or sensory deficit PSYCHIATRIC:_normal mood and affect, thought process is clear and linear Limitations: no limitations Course Vital Signs 11/28/23 11/28/23 11/28/23 16:17 16:37 18:29 Temperature 98.6 F 98.0 F 98.4 F Pulse Rate 81 77 80 Respiratory 18 18 18 Rate Blood Pressure 196/88 175/87 163/85 O2 Sat by Pulse 96 100 97 Oximetry 11/28/23 19:30 Temperature Pulse Rate 73 Respiratory 18 Rate Blood Pressure 152/84 O2 Sat by Pulse 97 Oximetry Medical Decision Making - Medical Decision Making Was pt. sent in by a medical professional or institution (, PA, BIOLOGICAL CHEMIST, urgent care, hospital, or prison...) When possible be specific @ -No Did you speak to anyone other than the patient for history (EMS, parent, family, police, friend...)? What history was obtained from this source @ -No Did you review nursing and triage notes (agree or disagree)? Why? @ -I reviewed and agree with nursing and triage notes Were old charts reviewed (outside hosp., previous admission, EMS record, old EKG, old radiological studies, urgent care reports/EKG's, prison records)? Report findings @ -Reviewed old chart, patient was recently in the emergency department in October 2023 for shortness of breath, CT PE study at that time was negative for PE Differential Diagnosis (chest pain, altered mental status, abdominal pain women, abdominal pain men, vaginal bleeding, weakness, fever, dyspnea, syncope, heada michele, dizziness, GI bleed, back pain, seizure, CVA, palpatations, mental health, musculoskeletal)? @ -Differential Abdominal Pain Women: Appendicitis, Cholecystitis, diverticulosis, ischemic bowel, pancreatitis, hepatitis, UTI, gastroenteritis,incarcerated hernia, bowel obstruction, constipation, inflammatory bowel, hepatitis, kidney stone this is not meant to be an all-inclusive list EKG interpreted by me (3pts min.). @ -As above X-rays interpreted by me (1pt min.). @ -None done CT interpreted by me (1pt min.). @ -None done U/S interpreted by me (1pt. min.). @ -No evidence of hydronephrosis, CBD is not dilated, no gallbladder wall thickening What testing was considered but not performed or refused? (CT, X-rays, U/S, labs)? Why? @ -Did consider CT abdomen pelvis stone study however ultrasound showed no evidence of hydronephrosis so if ureterolithiasis is present is not obstructing, I did discuss with patient obtaining CT stone study after ultrasound had resulted however she states that she actually usually has blood in her urine, pain is controlled and she is comfortable discharge at this point What meds were considered but not given or refused? Why? @ -Did consider stronger pain medication such as morphine however patient platelet declined Did you discuss the management of the patient with other professionals (professionals i.e. , PA, BIOLOGICAL CHEMIST, lab, RT, psych nurse, social services technician, metal furnace operator, teacher, agricultural technical officer, case investigator)? Give summary @ -No Was smoking cessation discussed for >3mins.? @ -No Was critical care preformed (if so, how long)? @ -No Were there social determinants of health that impacted care today? How? (Homelessness, low income, unemployed, alcoholism, drug addiction, transportation, low edu. Level, literacy, decrease access to med. care, [facility], rehab)? @ -No Was there de-escalation of care discussed even if they declined (Discuss DNR or withdrawal of care, Hospice)? @ -No What co-morbidities impacted this encounter? (DM, HTN, Smoking, COPD, CAD, Ca ncer, CVA, ARF, Chemo, Hep., AIDS, mental health diagnosis, sleep apnea, morbid obesity)? @ -None Was patient admitted / discharged? Hospital course, mention meds given and route, prescriptions, significant lab abnormalities, going to OR and other pertinent info. @ -Hospital course discharged Patient is a pleasant 68-year-old female past medical history of rheumatoid arthritis presenting for right upper quadrant pain x 1 day. Radiates around to back. States feels different from prior kidney stones. On assessment patient afebrile and in no acute distress. Exam significant for positive right upper quadrant tenderness, positive Saxena sign, no right CVA tenderness. Active bowel sounds throughout. Discussed with patient plan for basic labs including LFTs, pain control Toradol, urinalysis, ultrasound gallbladder, if hematuria present, will add imaging (US vs CT) to assess for evidence of obstructive uropathy. Patient states pain in RUQ with deep breathing, RUQ pain is reproducible with palpation, otherwise denies shortness of breath or chest pain, I do not feel cardiopulmonary workup indicated at this point. patient is in agreement with this. Labs reviewed, mild hematuria. Labs show no elevated lipase, leukocytosis, elevated lactic,or elevated LFTs. Updated patient and added on US renal to assess for hydronephrosis. On reassessment patient's pain is controlled. Ultrasound kidney shows no hydronephrosis, ultrasound gallbladder does not show any gallbladder wall thick ening or CBD dilation. Labs reassuring. On reassessment patient's pain is controlled. I discussed with her findings thus far. I discussed with her no signs of hydronephrosis on ultrasound. We did discuss obtaining a CT abdomen pelvis without contrast to assess for signs of ureterolithiasis however patient is comfortable discharge at this point. I discussed with her the importance following with her surgeon, Dr. Gambino, if RUQ pain 2/2 biliary colic and f/u with urology due to hematuria. We discussed signs and symptoms warranting return to the emergency department. All questions were answered and patient was discharged home in good condition. In my medical judgment there is currently no evidence of an immediate life- threatening or surgical condition. Discharge is therefore indicated at this time. Discharge treatment instructions, follow up instructions, and appropriate emergency department return precautions were discussed with the patient and/or medical decision maker. Patient and/or medical decision maker expressed understanding of and agreed with the treatment plan, follow up instructions, and emergency department return precaution. All patient's and/or medical decision maker's questions were answered. The patient was advised that a small risk still exists that a serious condition could develop and was therefore instructed to return to the ED for any changes in symptoms, persistent symptoms, inability to obtain proper follow-up or for any further concerns. Patient received verbal and written instructions for this condition. Undiagnosed new problem with uncertain prognosis? @ -No Drug Therapy requiring intensive monitoring for toxicity (Heparin, Nitro, Ins ulin, Cardizem)? @ -No Were any procedures done? @ -No Diagnosis/symptom? @Right upper quadrant pain, hematuria Acute, or Chronic, or Acute on Chronic? @Acute Uncomplicated (without systemic symptoms) or Complicated (systemic symptoms)? @Complicated Side effects of treatment? @ -No Exacerbation, Progression, or Severe Exacerbation? @ -No Poses a threat to life or bodily function? How? (Chest pain, USA, SC, pneumonia, PE, COPD, DKA, ARF, appy, cholecystitis, CVA, Diverticulitis, Homicidal, Suicid al, threat to staff... and all critical care pts) @ -No - Lab Data Result diagrams: 11/28/23 16:55 11/28/23 16:55 Lab Results 11/28/23 11/28/23 11/28/23 Range/Units 16:35 16:55 16:55 WBC 7.3 (3.8-10.6) k/uL RBC 5.01 (3.80-5.40) m/uL Hgb 15.5 (11.4-16.0) gm/dL Hct 46.4 H (34.0-46.0) % MCV 92.6 (80.0-100.0) fL MCH 30.8 (25.0-35.0) pg MCHC 33.3 (31.0-37.0) g/dL RDW 13.7 (11.5-15.5) % Plt Count 230 (150-450) k/uL MPV 8.6 Neutrophils % 59 % Lymphocytes % 30 % Monocytes % 4 % Eosinophils % 4 % Basophils % 1 % Neutrophils # 4.3 (1.3-7.7) k/uL Lymphocytes # 2.2 (1.0-4.8) k/uL Monocytes # 0.3 (0-1.0) k/uL Eosinophils # 0.3 (0-0.7) k/uL Basophils # 0.0 (0-0.2) k/uL PT 9.8 L (10.0-12.5) sec INR 0.9 (<1.2) APTT 24.6 (22.0-30.0) sec Sodium (137-145) mmol/L Potassium (3.5-5.1) mmol/L Chloride (98-107) mmol/L Carbon Dioxide (22-30) mmol/L Anion Gap mmol/L BUN (7-17) mg/dL Creatinine (0.52-1.04) mg/dL Est GFR (CKD-EPI)AfAm (>60 ml/min/1.73 sqM) Est GFR (CKD-EPI)NonAf (>60 ml/min/1.73 sqM) Glucose (74-99) mg/dL Plasma Lactic Acid Augustus (0.7-2.0) mmol/L Calcium (8.4-10.2) mg/dL Total Bilirubin (0.2-1.3) mg/dL AST (14-36) U/L ALT (4-34) U/L Alkaline Phosphatase (38-126) U/L Total Protein (6.3-8.2) g/dL Albumin (3.5-5.0) g/dL Amylase (30-110) U/L Lipase (23-300) U/L Urine Color Light Yellow Urine Appearance Clear (Clear) Urine pH 5.0 (5.0-8.0) Ur Specific [place]ylon 1.023 (1.001-1.035) Urine Protein Negative (Negative) Urine Glucose (UA) Negative (Negative) Urine Ketones 2+ H (Negative) Urine Blood Moderate H (Negative) Urine Nitrite Negative (Negative) Urine Bilirubin Negative (Negative) Urine Urobilinogen <2.0 (<2.0) mg/dL Ur Leukocyte Esterase Small H (Negative) Urine RBC 19 H (0-5) /hpf Urine WBC 4 (0-5) /hpf Ur Squamous Epith Cells 1 (0-4) /hpf Urine Mucus Rare H (None) /hpf 11/28/23 11/28/23 Range/Units 16:55 16:55 WBC (3.8-10.6) k/uL RBC (3.80-5.40) m/uL Hgb (11.4-16.0) gm/dL Hct (34.0-46.0) % MCV (80.0-100.0) fL MCH (25.0-35.0) pg MCHC (31.0-37.0) g/dL RDW (11.5-15.5) % Plt Count (150-450) k/uL MPV Neutrophils % % Lymphocytes % % Monocytes % % Eosinophils % % Basophils % % Neutrophils # (1.3-7.7) k/uL Lymphocytes # (1.0-4.8) k/uL Monocytes # (0-1.0) k/uL Eosinophils # (0-0.7) k/uL Basophils # (0-0.2) k/uL PT (10.0-12.5) sec INR (<1.2) APTT (22.0-30.0) sec Sodium 138 (137-145) mmol/L Potassium 3.9 (3.5-5.1) mmol/L Chloride 104 (98-107) mmol/L Carbon Dioxide 28 (22-30) mmol/L Anion Gap 6 mmol/L BUN 21 H (7-17) mg/dL Creatinine 0.67 (0.52-1.04) mg/dL Est GFR (CKD-EPI)AfAm >90 (>60 ml/min/1.73 sqM) Est GFR (CKD-EPI)NonAf >90 (>60 ml/min/1.73 sqM) Glucose 92 (74-99) mg/dL Plasma Lactic Acid Augustus 1.0 (0.7-2.0) mmol/L Calcium 10.0 (8.4-10.2) mg/dL Total Bilirubin 0.5 (0.2-1.3) mg/dL AST 27 (14-36) U/L ALT 11 (4-34) U/L Alkaline Phosphatase 65 (38-126) U/L Total Protein 7.4 (6.3-8.2) g/dL Albumin 4.4 (3.5-5.0) g/dL Amylase 56 (30-110) U/L Lipase 130 (23-300) U/L Urine Color Urine Appearance (Clear) Urine pH (5.0-8.0) Ur Specific Ceylon (1.001-1.035) Urine Protein (Negative) Urine Glucose (UA) (Negative) Urine Ketones (Negative) Urine Blood (Negative) Urine Nitrite (Negative) Urine Bilirubin (Negative) Urine Urobilinogen (<2.0) mg/dL Ur Leukocyte Esterase (Negative) Urine RBC (0-5) /hpf Urine WBC (0-5) /hpf Ur Squamous Epith Cells (0-4) /hpf Urine Mucus (None) /hpf Disposition Clinical Impression: Right upper quadrant abdominal pain, Hematuria Disposition: HOME SELF-CARE Condition: Good Instructions (If sedation given, give patient instructions): Biliary Colic (ED), Acute Abdominal Pain (ED) Additional Instructions: Every disease is a spectrum and a small chance still exists that a serious condition could develop, for this reason, please monitor yourself closely for new, changing or worsening symptoms, symptoms that persist beyond [48 hours], [fever], confusion, burning when you pee or peeing more than usual/symptoms of UTI, worsening or uncontrolled pain, vomiting, blood in your stool, inability to tolerate/keep down fluids or your medications, inability to follow up with outpatient providers as instructed and should you experience these symptoms or should you have any further concerns for your wellbeing please return to the ED or call 911 immediately. Please follow-up with your general surgeon, Dr. Gambino, regarding concerns that pain could potentially been secondary to your gallbladder. Please follow-up with urologist, Dr. Moore, regarding hematuria. PLEASE call your primary care physician as soon as possible to arrange / discuss plan for followup appointment. Appointment in the next 1-3 days is strongly encouraged if possible. PLEASE let us know here before you leave if there is anything further we can do to be of any assistance. Take care and feel Better! Is patient prescribed a controlled substance at d/c from ED?: No Referrals: Berna Jalloh MD [Primary Care Provider] - 1-2 days Joshua Gambino MD [Medical Doctor] - 1-2 days Chet Moore MD [STAFF PHYSICIAN] - 1-2 days
[2023-11-28 17:04] LABS: Appearance,Urine Clear (Clear); Bilirubin,Urine Negative (Negative); Blood,Urine Moderate (Negative); Color,Urine Light Yellow; Glucose,Urine (UA) Negative (Negative); Ketones,Urine 2+ (Negative); Leukocyte Esterase,Urine Small (Negative); Mucus,Urine Rare /hpf; Nitrite,Urine Negative (Negative); Protein,Urine Negative (Negative); RBC,Urine 19 /hpf (0-5); Specific Gravity,Urine 1.023 (1.001-1.035); Squamous Epithelial Cell,Urine 1 /hpf (0-4); Urobilinogen,Urine <2.0 mg/dL (<2.0); WBC,Urine 4 /hpf (0-5)
[2023-11-28] MEDS: SODIUM CHLORIDE 0.9% 500 ML 500 ML IV STA (17:24)
[2023-11-28 17:29] LABS: INR 0.9 (<1.2); Partial Thromboplastin Time 24.6 sec (22.0-30.0); Prothrombin Time 9.8 sec (10.0-12.5)
[2023-11-28 17:39] LABS: ALT 11 U/L (4-34); AST 27 U/L (14-36); African American GFR (CKD) >90 (>60 ml/min/1.73 sqM); Albumin 4.4 g/dL (3.5-5.0); Alkaline Phosphatase 65 U/L (38-126); Amylase 56 U/L (30-110); Anion Gap 6 mmol/L; Blood Urea Nitrogen 21 mg/dL (7-17); Carbon Dioxide 28 mmol/L (22-30); Chloride 104 mmol/L (98-107); Glucose 92 mg/dL (74-99); Lipase 130 U/L (23-300); Non-African American GFR(CKD) >90 (>60 ml/min/1.73 sqM); Potassium 3.9 mmol/L (3.5-5.1); Sodium 138 mmol/L (137-145); Total Bilirubin 0.5 mg/dL (0.2-1.3); Total Protein 7.4 g/dL (6.3-8.2)
[2023-11-28 17:40] LABS: Basophils % (A) 1 %; Eosinophils # (A) 0.3 k/uL (0-0.7); Eosinophils % (A) 4 %; HCT 46.4 % (34.0-46.0); HGB 15.5 gm/dL (11.4-16.0); Lymphocytes # (A) 2.2 k/uL (1.0-4.8); Lymphocytes % (A) 30 %; MCH 30.8 pg (25.0-35.0); MCHC 33.3 g/dL (31.0-37.0); MCV 92.6 fL (80.0-100.0); Mean Platelet Volume 8.6; Monocytes # (A) 0.3 k/uL (0-1.0); Monocytes % (A) 4 %; Neutrophils # (A) 4.3 k/uL (1.3-7.7); Neutrophils % (A) 59 %; Platelet Count 230 k/uL (150-450); RBC 5.01 m/uL (3.80-5.40); RDW 13.7 % (11.5-15.5); WBC 7.3 k/uL (3.8-10.6)
[2023-11-28] MEDS: ONDANSETRON 4 MG/2 ML VIAL IVP STA (17:59)
[2023-11-28] MEDS: diphenhydrAMINE 50 MG/ML 1 ML VIAL IVP STA (17:59)
[2023-11-28] MEDS: KETOROLAC 15 MG/ML 1 ML VIAL IVP STA (17:59)
[2023-11-28 18:30] VITALS: TEMP 98.4
--- NOTE | 2023-11-28 18:35 | US ---
DATE OF EXAM: 11/28/2023 COMPARISON: US renal 03/06/2019 CLINICAL INDICATION: Female, 68 years old with history of RUQ pain; RUQ pain since last night. Hematu jeff. TECHNIQUE: Grayscale and color Doppler imaging of the right upper quadrant including the kidneys and urinary bladder. FINDINGS: EXAM MEASUREMENTS: Liver Length: 19.2 cm Gallbladder Wall: 0.3 cm CBD: 0.4 cm Right Kidney: 9.3 x 4.0 x 4.8 cm Left Kidney: 10.0 x 5.2 x 5.1 cm Pancreas: Obscured by bowel gas Liver: hepatomegaly. difficult to penetrate. Gallbladder: wnl CBD: wnl Right Kidney: wnl Left Kidney: There is a 0.9 x 0.8cm simple appearing cyst seen in the inferior pole Bladder: wnl Bilateral Jets Seen No AMBULANCE PARAMEDIC NOTES: Limited due to overlying bowel gas and patient body habitus IMPRESSION: 1. No evidence for acute abdominal process. 2. Hepatic steatosis. 3. Hepatomegaly. [facility], Workstation: [id number], 11/28/2023 6:33 PM
[2023-11-28 19:32] VITALS: BP 152/84; PULSE 73
== END 2023-11-28 19:30 | disposition home or self-care (01) ==
LOC: EC 16:16
CPT/HCPCS: 36415; 76705; 76770; 80053; 81001; 82150; 83605; 83690; 85025; 85610; 85730; 96361; 96374; 96375; 99284

== ENCOUNTER → 2024-03-20 | Outpatient (CLI) | payer OTHER ==
--- NOTE | 2024-03-20 08:47 | BD ---
EXAMINATION TYPE: Axial Bone Density DATE OF EXAM: 03/20/2024 CLINICAL HISTORY: 69 years old Female. ICD-10 CODE: Z78.0 ASYMPTOMATIC MENOPAUSAL STA , Additional History: Height: 5 ft 1 1/2 in Weight: 224 FRAX RISK QUESTIONS: Alcohol (3 or more units per day): no Family History (Parent hip fracture): no Glucocorticoids (More than 3mos): no (Ex: prednisone, prednisolone, methylprednisolone, dexamethasone, and hydrocortisone). History of Fracture in Adulthood: no Secondary Osteoporosis: 1. Type 1 Diabetes: no 2. Hyperthyroidism: no 3. Menopause before 45: no 4. Malnutrition: no 5. Chronic liver disease: no Rheumatoid Arthritis: yes Current Tobacco Use: no RISK FACTORS HISTORY OF: Surgery to Spine/Hip(right/left)/Wrist (right/left): no MEDICATIONS: Thyroid Medications: none Osteoporosis Medications: none EXAM MEASUREMENTS: Bone mineral densitometry was performed using the [employer] Below System. Bone mineral density as measured about the Lumbar spine is: ----- L1-L4(G/cm2): 0.957 T Score Values are as follows: ----- L1: -0.3 ----- L2: -2.7 ----- L3: -2.3 ----- L4: -2.1 ----- L1-L4: -1.9 Z Score Values are as follows: ----- L1: 0.1 ----- L2: -2.3 ----- L3: -1.8 ----- L4: -1.7 ----- L1-L4: -1.4 baseline Bone mineral density about the R hip (g/cm2): 0.811 Bone mineral density about the L hip (g/cm2): 0.797 T Score values are as follows: -----R Neck: -1.6 -----L Neck: -1.7 -----R Total: -1.8 -----L Total: -1.5 Z Score values are as follows: -----R Neck: -0.8 -----L Neck: -0.9 -----R Total: -1.3 -----L Total: -1.0 baseline FRAX%s: The graph provided illustrates a 8.9 % chance for a major osteoporotic fx and a 1.1 % chance for the hips probability for fx in 10 years time. IMPRESSION: Osteoporosis (T Score less than -2.5). There is increased fracture risk and therapy is usually indicated based on age. Re-Screen 1-2 years. NOTE: T-SCORE=SD OF THE YOUNG ADULT MEAN. [facility], , 03/20/2024 8:45 AM
--- NOTE | 2024-03-20 09:23 | MM ---
Reason for Exam: Screening (asymptomatic). Last mammogram was performed 1 year(s) and 4 month(s) ago. Patient History: Menarche at age 16. First Full-Term at age 34. Late child-bearing (after 30). Hysterectomy at age 42. Postmenopausal. Endometrial cancer, age 33. 10/24/2018, High risk Core Biopsy on the right side. Paternal aunt had breast cancer, age 55. Risk Values: Paola 5 year model risk: 2.5%. NCI Lifetime model risk: 8.5%. Prior Study Comparison: 10/28/2020 Bilateral Screening Mammogram, [facility]. 11/04/2021 Bilateral MG screening mammo w CAD, [facility]. 11/10/2022 Bilateral MG 3D screening mammo w/cad, [facility]. Tissue Density: There are scattered areas of fibroglandular density. Findings: Analyzed By CAD. Right breast: There is no suspicious group of microcalcifications or new suspicious mass. Left breast: There is no suspicious group of microcalcifications or new suspicious mass. Overall Assessment: Negative, BI-RAD 1 Management: Screening Mammogram of both breasts in [address] [facility] will attempt to contact patient to return for supplemental views and ultrasound if indicated. Patient should continue monthly self-breast exams. A clinical breast exam by your physician is recommended on an annual basis. This exam should not preclude additional follow-up of suspicious palpable abnormalities. Note on Paola scores and lifetime risk: 1. A Paola score greater than 3% is considered moderate risk. If this is the case, consider specialist referral to assess eligibility for a risk reducing agent. 2. If overall lifetime risk for the development of breast cancer is 20% or higher, the patient may qualify for future screening with alternating mammogram and breast MRI. [facility], , 03/20/2024 9:20 AM. Electronically signed and approved by: Tony Gonzalez DO
== END | disposition home or self-care (01) ==
LOC: RADBDWWP 08:02
PROVIDERS: ATTEND Family Medicine
DX: Z12.31 Encounter for screening mammogram for malignant neoplasm of breast (principal); R92.323 Mammographic fibroglandular density, bilateral breasts; M81.0 Age-related osteoporosis without current pathological fracture; M85.89 Other specified disorders of bone density and structure, multiple sites; Z80.3 Family history of malignant neoplasm of breast; Z78.0 Asymptomatic menopausal state
CPT/HCPCS: 77063; 77067; 77080

== ENCOUNTER → 2024-06-19 | Day surgery (SDC) | payer OTHER ==
[~2024-06-19] MED LIST changes: +PROPOFOL 10 MG/ML 20 ML VIAL IV ONE; -TRANEXAMIC 1,000 MG/100ML-NACL 1,000 MG in SALINE 1 100ML.BAG IVPB PRN
[2024-06-19 08:43] VITALS: RESP 16; TEMP 97.7
[2024-06-19] MEDS: IV FLUID CONTINUATION 1,000 ML IV ONE (08:47)
[2024-06-19] MEDS: LACTATED RINGERS 1,000 ML IV SCH (08:48)
--- NOTE | 2024-06-19 08:54 | P.GSHP ---
History of Present Illness H&P Date: 06/19/24 Chief Complaint: Colon cancer screening 69-year-old female here for colonoscopy. She has not had 1 previously. No bowel complaints. Possible family history of colon cancer in her mother however definitive diagnosis was never made. Past Medical History Past Medical History: Cancer, Hypertension, Pneumonia, Rheumatoid Arthritis (RA), Thyroid Disorder Additional Past Medical History / Comment(s): Heart murmur, thyroid nodules, cervical cancer, pneumonia 1 yr. ago, kidney stones History of Any Multi-Drug Resistant Organisms: None Reported Past Surgical History: Bariatric Surgery, Breast Surgery, Hysterectomy, Joint Replacement, Orthopedic Surgery Additional Past Surgical History / Comment(s): right leg surgery, gastric sleeve surg., blair knee replacements, cyst removed. milk duct removed Past Anesthesia/Blood Transfusion Reactions: Postoperative Nausea & Vomiting (PONV) Additional Past Anesthesia/Blood Transfusion Reaction / Comment(s): when she had "twilight" she stopped breathing and needed to be intubated Smoking Status: Former smoker - Past Family History Sister(s) Family Medical History: Cancer Additional Family Medical History / Comment(s): nonhodgkins lymphoma Father Additional Family Medical History / Comment(s): "heart and abdominal aneurysms" Medications and Allergies Home Medications Medication Instructions Recorded Confirmed Type EPINEPHrine (Auto Inject) [Epipen] 0.3 mg IM ONCE PRN #2 syringe 07/27/16 06/19/24 Rx Cetirizine HCl [Zyrtec] 30 mg PO HS 09/20/18 06/19/24 History Cholecalciferol [Vitamin D3 (25 5,000 unit PO BID 09/20/18 06/19/24 History Mcg = 1000 Iu)] Fexofenadine/Pseudoephedrine 1 each PO QAM 09/20/18 06/19/24 History [Ange-D 12 Hour Tablet] DULoxetine HCL [Cymbalta] 30 mg PO DAILY 11/16/22 06/19/24 History Losartan [Cozaar] 25 mg PO HS 11/16/22 06/19/24 History Magnesium Carb,Citrate,Oxide 1,000 mg PO HS 11/16/22 06/19/24 History [Magnesium Complex] Multivitamins, Thera [Multivitamin 1 tab PO DAILY 11/16/22 06/19/24 History (formulary)] Rosuvastatin [Crestor] 10 mg PO HS 11/16/22 06/19/24 History hydroCHLOROthiazide 12.5 mg PO DAILY 11/16/22 06/19/24 History Orencia Infusion See Rx Instructions .ROUTE .COMPLEX 06/14/24 06/19/24 History Allergies Allergy/AdvReac Type Severity Reaction Status Date / Time ibuprofen Allergy Anaphylaxis Verified 06/19/24 08:36 naproxen sodium [From Aleve] Allergy Anaphylaxis Verified 06/19/24 08:36 Penicillins Allergy Anaphylaxis Verified 06/19/24 08:36 Sulfa (Sulfonamide Allergy Anaphylaxis Verified 06/19/24 08:36 Antibiotics) sulfamethoxazole Allergy Anaphylaxis Verified 06/19/24 08:36 [From Bactrim] trimethoprim [From Bactrim] Allergy Anaphylaxis Verified 06/19/24 08:36 tramadol [From Ultram] AdvReac Rash/Hives Verified 06/19/24 08:36 Surgical - Exam Vital Signs Temp Pulse Resp BP Pulse Ox 97.7 F 85 16 174/81 96 06/19/24 08:41 06/19/24 08:41 06/19/24 08:41 06/19/24 08:41 06/19/24 08:41 Physical exam: General: Well-developed, well-nourished HEENT: Normocephalic, sclerae nonicteric Abdomen: Nontender, nondistended Extremities: No edema Neuro: Alert and oriented Assessment and Plan (1) Colon cancer screening Narrative/Plan: Will proceed with colonoscopy at this time. Current Visit: Yes Status: Acute Code(s): Z12.11 - ENCOUNTER FOR SCREENING FOR MALIGNANT NEOPLASM OF COLON SNOMED Code(s): 088263311
--- NOTE | 2024-06-19 09:10 | P.PCN ---
Date of Procedure: 06/19/24 Procedure(s) Performed: PREOPERATIVE DIAGNOSIS: Colon cancer screening POSTOPERATIVE DIAGNOSIS: Diverticulosis PROCEDURE: Colonoscopy ANESTHESIA: MAC SURGEON: Joshua Gambino M.D. SPECIMENS: None ENDOSCOPIC PROCEDURE: The patient was placed on the endoscopy table in the left decubitus position. The Olympus colonoscope was inserted into the anus and passed under direct visualization to the base of the cecum. The appendiceal orifice was visualized. From that point the scope was slowly withdrawn inspe cting all surfaces carefully. There were no neoplastic inflammatory or polypoid lesions throughout the cecum, ascending, transverse, descending, sigmoid and rectum. There was scattered diverticulosis noted throughout the colon. Digital rectal examination was normal. The patient was taken to the recovery room in stable condition per anesthesia guidelines. RECOMMENDATIONS: Resume diet. Repeat colonoscopy 5 to 10 years.
[2024-06-19 09:30] VITALS: BP 126/80; PULSE 84
== END ==
LOC: ORWHC2ENDO 08:07
PROVIDERS: ATTEND Surgery
DX: Z12.11 Encounter for screening for malignant neoplasm of colon (principal); K57.30 Diverticulosis of large intestine without perforation or abscess without bleeding; I10 Essential (primary) hypertension; E78.5 Hyperlipidemia, unspecified; E07.9 Disorder of thyroid, unspecified; F32.A Depression, unspecified; F41.9 Anxiety disorder, unspecified; G47.33 Obstructive sleep apnea (adult) (pediatric); M06.9 Rheumatoid arthritis, unspecified; Z85.41 Personal history of malignant neoplasm of cervix uteri; Z90.710 Acquired absence of both cervix and uterus; Z96.653 Presence of artificial knee joint, bilateral; Z87.891 Personal history of nicotine dependence; Z88.6 Allergy status to analgesic agent; Z88.1 Allergy status to other antibiotic agents; Z88.2 Allergy status to sulfonamides; Z88.0 Allergy status to penicillin; Z88.5 Allergy status to narcotic agent; Z79.899 Other long term (current) drug therapy
CPT/HCPCS: 45378; J2704